=== PATIENT | female | born 1965 | race Caucasian/White ===

== ENCOUNTER 2016-11-15 00:20 | Emergency (ER) | payer OTHER ==
[~2016-11-15] VITALS: Ht 157.5 cm; Wt 153.1 kg
[~2016-11-15 00:20] MED LIST: A & D15 GM TP; ADVIL,NUPRIN,M200 MG PO; ASPIRIN325 MG PO; CLINDAMYCIN HC300 MG PO; ENDOCET 5-3251 EACH PO; KETOCONAZOLE60 GM TP; LASIX PO; TYLENOL REGULA325 MG PO; VISINE A.C300 DROP/1 BOTH EYES
[2016-11-15 01:45] LABS: HEMATOCRIT 49.5 % (36.0-46.0); MCHC 31.7 G/DL (30.0-36.0); MCV 100.8 FL (83-99); MEAN PLAT.VOLUME 11.6 uM^3 (9.5-12.4); PLATELET COUNT 122 K/uL (156-360); RBC DIS.WIDTH-CV 14.5 % (11.8-14.6); RBC DIS.WIDTH-SD 53.6 % (39-53); RED BLOOD COUNT 4.91 M/uL (3.80-5.20); WHITE BLOOD COUNT 8.3 K/uL (4.1-10.2)
[2016-11-15 01:55] LABS: CHLORIDE 94 mEq/L (99-109); POTASSIUM 4.1 mEq/L (3.7-5.4); SODIUM 139 mEq/L (136-147)
[2016-11-15 01:57] LABS: GLUCOSE 115 mg/dL (70-99)
[2016-11-15 01:58] LABS: ANION GAP 9 MEQ/L (2-14)
[2016-11-15 02:01] LABS: GFR ESTIMATE (CALCULATED) > 59 mL/min/; UREA NITROGEN (BUN) 13 mg/dL (9-23)
[2016-11-15 02:27] LABS: INFLUENZA A VIRAL ANTIGEN NEGATIVE; INFLUENZA B VIRAL ANTIGEN NEGATIVE
[2016-11-15] MEDS ORDERED: ZITHROMAX Z-PA250 MG PO (02:59)
[2016-11-15] MEDS ORDERED: TOBREX5 ML BOTH EYES (02:59)
[2016-11-15 03:03] VITALS: BP 134/80
== END 2016-11-15 03:11 | disposition home or self-care (01) ==
LOC: EME 00:20
PROVIDERS: Physician Assistant
DX: J32.9 Chronic sinusitis, unspecified (principal); H10.9 Unspecified conjunctivitis; R05 Cough; J44.9 Chronic obstructive pulmonary disease, unspecified; R73.03 Prediabetes; F17.200 Nicotine dependence, unspecified, uncomplicated
CPT/HCPCS: 71020; 80048; 85027; 87502; 87651 90; 94640; 99281; 99284

== ENCOUNTER 2016-12-19 16:46 | Inpatient (IN) | payer OTHER ==
[~2016-12-19] VITALS: Ht 157.5 cm; Wt 153.0 kg
[~2016-12-19 16:46] MED LIST changes: +TOBREX5 ML BOTH EYES; +ZITHROMAX Z-PA250 MG PO
[2016-12-19 17:35] LABS: HEMATOCRIT 46.8 % (36.0-46.0); MCHC 29.3 G/DL (30.0-36.0); MCV 109.3 FL (83-99); MEAN PLAT.VOLUME 11.8 uM^3 (9.5-12.4); PLATELET COUNT 95 K/uL (156-360); RBC DIS.WIDTH-CV 15.6 % (11.8-14.6); RBC DIS.WIDTH-SD 61.4 % (39-53); RED BLOOD COUNT 4.28 M/uL (3.80-5.20); WHITE BLOOD COUNT 5.6 K/uL (4.1-10.2)
[2016-12-19 17:55] LABS: TROP-I INTERPRETATION NEGATIVE; TROPONIN-I < 0.01 ng/mL (0.0-0.30)
[2016-12-19 18:13] LABS: CHLORIDE 95 mEq/L (99-109)
[2016-12-19 18:14] LABS: POTASSIUM 4.2 mEq/L (3.7-5.4); SODIUM 144 mEq/L (136-147)
[2016-12-19 18:15] LABS: GLUCOSE 117 mg/dL (70-99)
[2016-12-19 18:17] LABS: ANION GAP 3 MEQ/L (2-14); CARBON DIOXIDE (BICARBONATE) > 40.0 mEq/L (20-31)
[2016-12-19 18:19] LABS: GFR ESTIMATE (CALCULATED) > 59 mL/min/
[2016-12-19 18:20] LABS: UREA NITROGEN (BUN) 20 mg/dL (9-23)
[2016-12-20] VITALS (17 sets, daily range): BP systolic 101–160; BP diastolic 41–112
[2016-12-20 02:45] LABS: ADD MIUA? YES; BILIRUBIN NEGATIVE; BLOOD SMALL; COLOR AMBER ((YELLOW)); GLUCOSE (STRIP) NEGATIVE; KETONES NEGATIVE; LEUKOCYTES NEGATIVE; NITRITE POSITIVE; PROTEIN (STRIP) 100
[2016-12-20 02:49] LABS: BACTERIA 1+ /HPF; EPITHELIAL CELLS 1+ /HPF; HYALINE CASTS 0-5 /LPF; MUCUS 1+ /LPF; RED BLOOD CELLS 0-5 /HPF (0-5); UCUL ADDED? NO
[2016-12-20 07:21] LABS: ANION GAP ND MEQ/L (2-14); CHLORIDE 93 MEQ/L (99-109); GFR ESTIMATE (CALCULATED) > 59 mL/min/; GLUCOSE 136 mg/dL (70-99); SAMPLE HEMOLYSIS CHECK 1; SAMPLE ICTERIC CHECK 0; SAMPLE LIPEMIA CHECK 0; SODIUM 141 MEQ/L (136-147); UREA NITROGEN (BUN) 20 mg/dL (9-23)
[2016-12-20 07:22] LABS: CARBON DIOXIDE (BICARBONATE) > 40.0 MEQ/L (20-31); POTASSIUM 5.3 MEQ/L (3.7-5.4)
[2016-12-20 08:14] LABS: HEMATOCRIT 49.2 % (36.0-46.0); MCH 31.9 PG (29.0-34.0); MCHC 28.7 G/DL (30.0-36.0); MCV 111.3 FL (83-99); MEAN PLAT.VOLUME 12.6 uM^3 (9.5-12.4); PLATELET COUNT 95 K/uL (156-360); RBC DIS.WIDTH-CV 15.9 % (11.8-14.6); RBC DIS.WIDTH-SD 64.8 % (39-53); RED BLOOD COUNT 4.42 M/uL (3.80-5.20); WHITE BLOOD COUNT 6.5 K/uL (4.1-10.2)
[2016-12-20 09:10] LABS: BASE EXCESS 18.4 mEq/L (-3 to +3); BICARBONATE 52.2 mEq/L (22-26); CARBOXY HGB 3.3 % (0-5); PCO2 119 mm Hg (35-45); PO2 47 mm Hg (80-100); pH 7.25 (7.35-7.45)
[2016-12-20 09:11] LABS: COMMENTS - BLOOD GASES A+C+; DEVICE NCHH; FI02 100 %; O2 FLOW 70 L/MIN; SITE RR
[2016-12-20 09:31] LABS: POINT-OF-CARE METER ID UU14100415
[2016-12-20 13:01] LABS: BASE EXCESS 21.4 mEq/L (-3 to +3); BICARBONATE 54.1 mEq/L (22-26); CARBOXY HGB 3.3 % (0-5); METHEMOGLOBIN 1.4 % (0-1.5); PCO2 110 mm Hg (35-45); PO2 67 mm Hg (80-100); SITE LR
[2016-12-20 13:02] LABS: COMMENTS - BLOOD GASES A+C+; DEVICE NIV; FI02 70 %; MODE SPONT; PEEP 10 CM/H20; PRES. SUPPORT 15 CM/H2O; TOTAL RESP RATE 12 resp/min
[2016-12-20 13:28] LABS: METH RESISTANT S AUREUS PCR NEGATIVE (NEGATIVE)
[2016-12-20 13:30] LABS: PROBE CHECK PASS; SPECIMEN PROCESSING CONTROL PASS
[2016-12-20 13:56] LABS: TROP-I INTERPRETATION NEGATIVE; TROPONIN-I < 0.01 ng/mL (0.0-0.30)
[2016-12-20 14:59] LABS: BASE EXCESS 22.4 mEq/L (-3 to +3); BICARBONATE 51.8 mEq/L (22-26); CARBOXY HGB 2.8 % (0-5); METHEMOGLOBIN 1.6 % (0-1.5); PCO2 78 mm Hg (35-45); pH 7.43 (7.35-7.45)
[2016-12-20 15:00] LABS: DEVICE VENT; FI02 100 %; MECHANICAL RATE 20 resp/min; MODE AC; PEEP 12.5 CM/H20; PO2 51 mm Hg (80-100); SITE RR; TIDAL VOLUME 500 ML; TOTAL RESP RATE 20 resp/min
[2016-12-21] VITALS (20 sets, daily range): BP systolic 93–130; BP diastolic 42–64
[2016-12-21 10:13] LABS: BASE EXCESS 17.6 mEq/L (-3 to +3); BICARBONATE 39.5 mEq/L (22-26); CARBOXY HGB 1.7 % (0-5); DEVICE 840; FI02 70 %; MECHANICAL RATE 20 resp/min; METHEMOGLOBIN 1.8 % (0-1.5); MODE BILEVEL; PCO2 35 mm Hg (35-45); PO2 84 mm Hg (80-100); SITE RR; TOTAL RESP RATE 21 resp/min; pH 7.66 (7.35-7.45)
[2016-12-21 10:22] LABS: EOSINOPHIL (%) 0.4 % (0-5); HEMATOCRIT 42.4 % (36.0-46.0); IMMATURE GRANULOCYTE (%) 0.6 % (0.0-0.7); IMMATURE GRANULOCYTE COUNT 0.3 K/uL; LYMPHOCYTE COUNT 0.4 K/uL (1.0-2.8); MCH 31.9 PG (29.0-34.0); MCHC 30.7 G/DL (30.0-36.0); MCV 104.2 FL (83-99); MEAN PLAT.VOLUME 12.8 uM^3 (9.5-12.4); MONOCYTE (%) 7.4 % (3-12); MONOCYTE COUNT 0.4 K/uL (0-0.8); NEUTROPHIL (%) 84.8 % (45-76); NEUTROPHIL COUNT 4.5 K/uL (1.8-6.4); PLATELET COUNT 98 K/uL (156-360); RBC DIS.WIDTH-CV 15.2 % (11.8-14.6); RBC DIS.WIDTH-SD 57.4 % (39-53); RED BLOOD COUNT 4.07 M/uL (3.80-5.20); WHITE BLOOD COUNT 5.3 K/uL (4.1-10.2)
[2016-12-21 10:57] LABS: BASE EXCESS 15.8 mEq/L (-3 to +3); BICARBONATE 40.2 mEq/L (22-26); CARBOXY HGB 1.7 % (0-5); METHEMOGLOBIN 1.7 % (0-1.5); PCO2 46 mm Hg (35-45); PO2 57 mm Hg (80-100); pH 7.55 (7.35-7.45)
[2016-12-21 10:58] LABS: COMMENTS - BLOOD GASES A+C+; DEVICE 840; FI02 100 %; INSPIRATION TIME 1.25 seconds; MECHANICAL RATE 12 resp/min; MODE AC; PEEP 5 CM/H20; PRESSURE CONTROL VENTILATION 15 CM H20; SITE RR; TOTAL RESP RATE 17 resp/min
[2016-12-21 11:09] LABS: ANION GAP 13 MEQ/L (2-14); CHLORIDE 92 MEQ/L (99-109); GFR ESTIMATE (CALCULATED) > 59 mL/min/; GLUCOSE 151 mg/dL (70-99); MAGNESIUM 1.7 mg/dl (1.3-2.7); SAMPLE HEMOLYSIS CHECK 0; SAMPLE ICTERIC CHECK 0; SAMPLE LIPEMIA CHECK 0; SODIUM 138 MEQ/L (136-147); UREA NITROGEN (BUN) 30 mg/dL (9-23)
[2016-12-21 11:11] LABS: POTASSIUM 3.9 MEQ/L (3.7-5.4)
[2016-12-21 13:13] LABS: POINT-OF-CARE METER ID UU13113731
[2016-12-21 14:11] LABS: BASE EXCESS 14.2 mEq/L (-3 to +3); BICARBONATE 42.6 mEq/L (22-26); CARBOXY HGB 2.1 % (0-5); METHEMOGLOBIN 1.6 % (0-1.5)
[2016-12-21 14:12] LABS: COMMENTS - BLOOD GASES C+; DEVICE 840; FI02 100 %; INSPIRATION TIME 1.25 seconds; MECHANICAL RATE 12 resp/min; MODE AC/PC; PCO2 72 mm Hg (35-45); PEEP 10 CM/H20; PO2 93 mm Hg (80-100); PRESSURE CONTROL VENTILATION 15 CM H20; SITE ALINE; TOTAL RESP RATE 12 resp/min; pH 7.38 (7.35-7.45)
[2016-12-21 18:03] LABS: POINT-OF-CARE METER ID UU14174217
[2016-12-22] VITALS (22 sets, daily range): BP systolic 101–135; BP diastolic 40–65
[2016-12-22 00:48] LABS: POINT-OF-CARE METER ID UU14174217
[2016-12-22 05:30] LABS: POINT-OF-CARE METER ID UU14174217
[2016-12-22 06:16] LABS: EOSINOPHIL (%) 0 % (0-5); IMMATURE GRANULOCYTE (%) 0.4 % (0.0-0.7); IMMATURE GRANULOCYTE COUNT 0.1 K/uL; LYMPHOCYTE COUNT 0.4 K/uL (1.0-2.8); MONOCYTE (%) 2.1 % (3-12); MONOCYTE COUNT 0.3 K/uL (0-0.8); NEUTROPHIL (%) 94.1 % (45-76); NEUTROPHIL COUNT 10.9 K/uL (1.8-6.4)
[2016-12-22 06:38] LABS: ANION GAP 7 MEQ/L (2-14); CHLORIDE 93 MEQ/L (99-109); GFR ESTIMATE (CALCULATED) > 59 mL/min/; GLUCOSE 145 mg/dL (70-99); MAGNESIUM 1.9 mg/dl (1.3-2.7); POTASSIUM 3.9 MEQ/L (3.7-5.4); SAMPLE HEMOLYSIS CHECK 0; SAMPLE ICTERIC CHECK 0; SAMPLE LIPEMIA CHECK 0; SODIUM 136 MEQ/L (136-147); UREA NITROGEN (BUN) 37 mg/dL (9-23)
[2016-12-22 06:47] LABS: HEMATOCRIT 40.4 % (36.0-46.0); MCH 32.4 PG (29.0-34.0); MCHC 31.4 G/DL (30.0-36.0); MCV 103.1 FL (83-99); MEAN PLAT.VOLUME 13.6 uM^3 (9.5-12.4); PLATELET COUNT 113 K/uL (156-360); RBC DIS.WIDTH-CV 15.9 % (11.8-14.6); RBC DIS.WIDTH-SD 59.3 % (39-53); RED BLOOD COUNT 3.92 M/uL (3.80-5.20)
[2016-12-22 07:13] LABS: PLAT.SUFFICIENCY DECREASED; USER ID STC
[2016-12-22 07:19] LABS: WHITE BLOOD COUNT 11.6 K/uL (4.1-10.2)
[2016-12-22 12:49] LABS: POINT-OF-CARE METER ID UU14174217
[2016-12-22 15:30] LABS: BICARBONATE 36.1 mEq/L (22-26); CARBOXY HGB 2.7 % (0-5); COMMENTS - BLOOD GASES C+; DEVICE 840; FI02 100 %; MECHANICAL RATE 12 resp/min; METHEMOGLOBIN 1.2 % (0-1.5); MODE AC; PCO2 75 mm Hg (35-45); PO2 85 mm Hg (80-100); SITE ALINE; TOTAL RESP RATE 14 resp/min
[2016-12-22 15:31] LABS: INSPIRATION TIME 1.25 seconds; PEEP 12 CM/H20; PRESSURE CONTROL VENTILATION 15 CM H20; pH 7.29 (7.35-7.45)
[2016-12-22 18:04] LABS: BASE EXCESS 8.9 mEq/L (-3 to +3); BICARBONATE 37.4 mEq/L (22-26); CARBOXY HGB 2.1 % (0-5); COMMENTS - BLOOD GASES C+; DEVICE 840; FI02 90 %; MECHANICAL RATE 16 resp/min; METHEMOGLOBIN 1.6 % (0-1.5); MODE AC/PC; PCO2 71 mm Hg (35-45); PO2 70 mm Hg (80-100); SITE ALINE; TOTAL RESP RATE 16 resp/min; pH 7.33 (7.35-7.45)
[2016-12-22 18:05] LABS: INSPIRATION TIME 1.25 seconds; PEEP 12 CM/H20; PRESSURE CONTROL VENTILATION 15 CM H20
[2016-12-22 18:05] LABS: POINT-OF-CARE METER ID UU14174217
[2016-12-23] VITALS (14 sets, daily range): BP systolic 117–152; BP diastolic 52–71
[2016-12-23 00:22] LABS: POINT-OF-CARE METER ID UU14162636
[2016-12-23 05:59] LABS: POINT-OF-CARE METER ID UU13113731
[2016-12-23 09:25] LABS: ANION GAP 8 MEQ/L (2-14); CHLORIDE 92 MEQ/L (99-109); GFR ESTIMATE (CALCULATED) > 59 mL/min/; GLUCOSE 145 mg/dL (70-99); POTASSIUM 3.9 MEQ/L (3.7-5.4); SAMPLE HEMOLYSIS CHECK 0; SAMPLE ICTERIC CHECK 0; SAMPLE LIPEMIA CHECK 0; SODIUM 134 MEQ/L (136-147); UREA NITROGEN (BUN) 44 mg/dL (9-23)
[2016-12-23 09:26] LABS: HEMATOCRIT 41.1 % (36.0-46.0); MCH 31.1 PG (29.0-34.0); MCHC 30.9 G/DL (30.0-36.0); MCV 100.7 FL (83-99); RBC DIS.WIDTH-CV 15.7 % (11.8-14.6); RBC DIS.WIDTH-SD 57.7 % (39-53); RED BLOOD COUNT 4.08 M/uL (3.80-5.20)
[2016-12-23 09:27] LABS: MAGNESIUM 2.5 mg/dl (1.3-2.7)
[2016-12-23 09:44] LABS: WHITE BLOOD COUNT 7.8 K/uL (4.1-10.2)
[2016-12-23 10:07] LABS: MEAN PLAT.VOLUME 13.1 uM^3 (9.5-12.4); PLATELET COUNT 95 K/uL (156-360)
[2016-12-23 17:12] LABS: BASE EXCESS 9.6 mEq/L (-3 to +3); BICARBONATE 38.5 mEq/L (22-26); CARBOXY HGB 2.3 % (0-5); METHEMOGLOBIN 1.6 % (0-1.5); PCO2 73 mm Hg (35-45); PO2 76 mm Hg (80-100); pH 7.33 (7.35-7.45)
[2016-12-23 17:13] LABS: COMMENTS - BLOOD GASES C+ANA; DEVICE 840 PB; FI02 80 %; MECHANICAL RATE 16 resp/min; MODE ACPC; SITE ALINE; TOTAL RESP RATE 22 resp/min
[2016-12-23 17:14] LABS: INSPIRATION TIME 0.76 seconds
[2016-12-23 17:15] LABS: PEEP 12 CM/H20; PRESSURE CONTROL VENTILATION 15 CM H20
[2016-12-23 18:26] LABS: POINT-OF-CARE METER ID UU13113731
[2016-12-23 23:53] LABS: POINT-OF-CARE METER ID UU13113803
[2016-12-24] VITALS (24 sets, daily range): BP systolic 128–168; BP diastolic 52–107
[2016-12-24 05:09] LABS: POINT-OF-CARE METER ID UU13113731
[2016-12-24 05:54] LABS: HEMATOCRIT 41.6 % (36.0-46.0); MCH 32.6 PG (29.0-34.0); RBC DIS.WIDTH-CV 15.3 % (11.8-14.6); RBC DIS.WIDTH-SD 56.8 % (39-53); RED BLOOD COUNT 4.08 M/uL (3.80-5.20); WHITE BLOOD COUNT 7.3 K/uL (4.1-10.2)
[2016-12-24 05:59] LABS: ANION GAP 7 MEQ/L (2-14); CHLORIDE 93 MEQ/L (99-109); GFR ESTIMATE (CALCULATED) > 59 mL/min/; GLUCOSE 142 mg/dL (70-99); MAGNESIUM 2.5 mg/dl (1.3-2.7); POTASSIUM 4.3 MEQ/L (3.7-5.4); SAMPLE HEMOLYSIS CHECK 0; SAMPLE ICTERIC CHECK 0; SAMPLE LIPEMIA CHECK 0; SODIUM 136 MEQ/L (136-147); UREA NITROGEN (BUN) 53 mg/dL (9-23)
[2016-12-24 07:32] LABS: PLATELET COUNT 84 K/uL (156-360)
[2016-12-24 12:02] LABS: POINT-OF-CARE METER ID UU13113731
[2016-12-24 17:55] LABS: POINT-OF-CARE METER ID UU13113731
[2016-12-25] VITALS (22 sets, daily range): BP systolic 107–144; BP diastolic 50–78
[2016-12-25 00:07] LABS: POINT-OF-CARE METER ID UU14162636
[2016-12-25 05:10] LABS: POINT-OF-CARE METER ID UU14174217
[2016-12-25 05:55] LABS: BASE EXCESS 12.9 mEq/L (-3 to +3); BICARBONATE 40.9 mEq/L (22-26); CARBOXY HGB 2.6 % (0-5); COMMENTS - BLOOD GASES C+; DEVICE 840; FI02 50 %; MECHANICAL RATE 16 resp/min; METHEMOGLOBIN 1.4 % (0-1.5); MODE AC/PC; PCO2 66 mm Hg (35-45); PO2 60 mm Hg (80-100); SITE RR; TOTAL RESP RATE 19 resp/min
[2016-12-25 05:56] LABS: INSPIRATION TIME 0.76 seconds; PEEP 8 CM/H20; PRESSURE CONTROL VENTILATION 15 CM H20
[2016-12-25 06:20] LABS: ANION GAP 6 MEQ/L (2-14); CHLORIDE 92 MEQ/L (99-109); GFR ESTIMATE (CALCULATED) > 59 mL/min/; GLUCOSE 143 mg/dL (70-99); MAGNESIUM 2.6 mg/dl (1.3-2.7); POTASSIUM 4.4 MEQ/L (3.7-5.4); SAMPLE HEMOLYSIS CHECK 0; SAMPLE ICTERIC CHECK 0; SAMPLE LIPEMIA CHECK 0; SODIUM 136 MEQ/L (136-147); UREA NITROGEN (BUN) 57 mg/dL (9-23)
[2016-12-25 06:51] LABS: HEMATOCRIT 44.6 % (36.0-46.0); MCH 30.8 PG (29.0-34.0); MCHC 30.9 G/DL (30.0-36.0); MCV 99.6 FL (83-99); RBC DIS.WIDTH-CV 15.4 % (11.8-14.6); RBC DIS.WIDTH-SD 56.2 % (39-53); RED BLOOD COUNT 4.48 M/uL (3.80-5.20)
[2016-12-25 07:28] LABS: PLATELET COUNT 77 K/uL (156-360)
[2016-12-25 10:46] LABS: C DIFF TOXIN NEGATIVE (NEGATIVE)
[2016-12-25 10:47] LABS: PROBE CHECK PASS; SPECIMEN PROCESSING CONTROL PASS
[2016-12-25 13:25] LABS: POINT-OF-CARE METER ID UU13113803
[2016-12-25 17:07] LABS: BICARBONATE 44.2 mEq/L (22-26); CARBOXY HGB 2.6 % (0-5); METHEMOGLOBIN 1.5 % (0-1.5); pH 7.34 (7.35-7.45)
[2016-12-25 17:08] LABS: PCO2 82 mm Hg (35-45); PO2 87 mm Hg (80-100)
[2016-12-25 17:10] LABS: COMMENTS - BLOOD GASES A+C+; DEVICE 840; FI02 50 %; SITE LR
[2016-12-25 17:11] LABS: MODE SPONT (TC); PEEP 5 CM/H20; TOTAL RESP RATE 24 resp/min
[2016-12-25 17:39] LABS: POINT-OF-CARE METER ID UU13113731
[2016-12-26] VITALS (19 sets, daily range): BP systolic 106–159; BP diastolic 48–81
[2016-12-26 00:14] LABS: POINT-OF-CARE METER ID UU13113803
[2016-12-26 06:02] LABS: POINT-OF-CARE METER ID UU13113803
[2016-12-26 06:33] LABS: ANION GAP 6 MEQ/L (2-14); CHLORIDE 92 MEQ/L (99-109); GFR ESTIMATE (CALCULATED) > 59 mL/min/; GLUCOSE 118 mg/dL (70-99); POTASSIUM 4.4 MEQ/L (3.7-5.4); SAMPLE HEMOLYSIS CHECK 0; SAMPLE ICTERIC CHECK 0; SAMPLE LIPEMIA CHECK 0; SODIUM 138 MEQ/L (136-147); UREA NITROGEN (BUN) 52 mg/dL (9-23)
[2016-12-26 06:43] LABS: MCH 32.4 PG (29.0-34.0); MCV 101.1 FL (83-99); RED BLOOD COUNT 4.45 M/uL (3.80-5.20); WHITE BLOOD COUNT 6.2 K/uL (4.1-10.2)
[2016-12-26 08:29] LABS: PLATELET COUNT 77 K/uL (156-360)
[2016-12-26 12:07] LABS: MAGNESIUM 2.5 mg/dl (1.3-2.7)
[2016-12-26 12:28] LABS: POINT-OF-CARE METER ID UU13113803
[2016-12-27] VITALS (14 sets, daily range): BP systolic 101–150; BP diastolic 56–77
[2016-12-28] VITALS (9 sets, daily range): BP systolic 108–154; BP diastolic 56–86
[2016-12-28 06:34] LABS: EOSINOPHIL (%) 0 % (0-5); IMMATURE GRANULOCYTE (%) 0.2 % (0.0-0.7); LYMPHOCYTE COUNT 0.2 K/uL (1.0-2.8); MONOCYTE (%) 2.2 % (3-12); MONOCYTE COUNT 0.1 K/uL (0-0.8); NEUTROPHIL (%) 93.2 % (45-76); NEUTROPHIL COUNT 3.8 K/uL (1.8-6.4)
[2016-12-28 06:52] LABS: HEMATOCRIT 47.6 % (36.0-46.0); MCH 30.8 PG (29.0-34.0); MCHC 31.1 G/DL (30.0-36.0); RBC DIS.WIDTH-CV 14.9 % (11.8-14.6); RBC DIS.WIDTH-SD 54.4 % (39-53); RED BLOOD COUNT 4.81 M/uL (3.80-5.20); WHITE BLOOD COUNT 4.1 K/uL (4.1-10.2)
[2016-12-28 07:09] LABS: ANION GAP ND MEQ/L (2-14); CHLORIDE 91 MEQ/L (99-109); GFR ESTIMATE (CALCULATED) > 59 mL/min/; GLUCOSE 144 mg/dL (70-99); POTASSIUM 4.3 MEQ/L (3.7-5.4); SAMPLE HEMOLYSIS CHECK 0; SAMPLE ICTERIC CHECK 0; SAMPLE LIPEMIA CHECK 0; SODIUM 137 MEQ/L (136-147); UREA NITROGEN (BUN) 37 mg/dL (9-23)
[2016-12-28 07:11] LABS: CARBON DIOXIDE (BICARBONATE) > 40.0 MEQ/L (20-31)
[2016-12-28 07:20] LABS: PLAT.SUFFICIENCY DECREASED; PLATELET COUNT 80 K/uL (156-360); USER ID TLW
[2016-12-28 08:13] LABS: BASE EXCESS 13.6 mEq/L (-3 to +3); BICARBONATE 42.1 mEq/L (22-26); CARBOXY HGB 2.7 % (0-5); COMMENTS - BLOOD GASES C+; DEVICE NC; METHEMOGLOBIN 1.5 % (0-1.5); O2 FLOW 4 L/MIN; PCO2 68 mm Hg (35-45); PO2 54 mm Hg (80-100); SITE RR; TOTAL RESP RATE 18 resp/min
[2016-12-29] VITALS: BP 135/71
[2016-12-29 04:00] VITALS: BP 130/64
[2016-12-29 06:20] LABS: EOSINOPHIL (%) 0 % (0-5); IMMATURE GRANULOCYTE (%) 0.2 % (0.0-0.7); LYMPHOCYTE COUNT 0.4 K/uL (1.0-2.8); MONOCYTE (%) 5.7 % (3-12); MONOCYTE COUNT 0.2 K/uL (0-0.8); NEUTROPHIL (%) 84.1 % (45-76); NEUTROPHIL COUNT 3.5 K/uL (1.8-6.4)
[2016-12-29 06:46] LABS: ANION GAP 6 MEQ/L (2-14); CHLORIDE 96 MEQ/L (99-109); GFR ESTIMATE (CALCULATED) > 59 mL/min/; POTASSIUM 4.5 MEQ/L (3.7-5.4); SAMPLE HEMOLYSIS CHECK 0; SAMPLE ICTERIC CHECK 0; SAMPLE LIPEMIA CHECK 0; SODIUM 139 MEQ/L (136-147); UREA NITROGEN (BUN) 32 mg/dL (9-23)
[2016-12-29 06:47] LABS: GLUCOSE 104 mg/dL (70-99); HEMATOCRIT 48.3 % (36.0-46.0); MCH 30.8 PG (29.0-34.0); MCHC 30.8 G/DL (30.0-36.0); MCV 99.8 FL (83-99); RBC DIS.WIDTH-CV 14.9 % (11.8-14.6); RBC DIS.WIDTH-SD 54.6 % (39-53); RED BLOOD COUNT 4.84 M/uL (3.80-5.20); WHITE BLOOD COUNT 4.2 K/uL (4.1-10.2)
[2016-12-29 06:48] LABS: HEMATOLOGY COMMENT 1 REV; PLAT.SUFFICIENCY DECREASED; PLATELET COUNT 103 K/uL (156-360)
[2016-12-29 09:27] VITALS: BP 129/60
[2016-12-29 13:30] VITALS: BP 152/72
[2016-12-29 15:57] VITALS: BP 142/83
[2016-12-29 20:17] VITALS: BP 121/58
[2016-12-30 00:47] VITALS: BP 123/60
[2016-12-30 03:46] VITALS: BP 116/64
[2016-12-30 08:00] VITALS: BP 100/59
[2016-12-30 11:22] VITALS: BP 113/59
[2016-12-30 15:50] VITALS: BP 131/66
[2016-12-30 20:00] VITALS: BP 122/71
[2016-12-30 21:03] LABS: POINT-OF-CARE METER ID UU14149396
[2016-12-31] VITALS (7 sets, daily range): BP systolic 113–141; BP diastolic 59–77
[2016-12-31 06:24] LABS: EOSINOPHIL (%) 0.3 % (0-5); IMMATURE GRANULOCYTE (%) 0.3 % (0.0-0.7); LYMPHOCYTE COUNT 0.9 K/uL (1.0-2.8); MONOCYTE (%) 8.3 % (3-12); MONOCYTE COUNT 0.3 K/uL (0-0.8); NEUTROPHIL (%) 67.7 % (45-76); NEUTROPHIL COUNT 2.5 K/uL (1.8-6.4)
[2016-12-31 06:44] LABS: HEMATOCRIT 46.3 % (36.0-46.0); MCH 33.6 PG (29.0-34.0); MCHC 33.7 G/DL (30.0-36.0); MCV 99.8 FL (83-99); RBC DIS.WIDTH-CV 14.7 % (11.8-14.6); RBC DIS.WIDTH-SD 53.8 % (39-53); RED BLOOD COUNT 4.64 M/uL (3.80-5.20); WHITE BLOOD COUNT 3.7 K/uL (4.1-10.2)
[2016-12-31 06:46] LABS: ANION GAP 4 MEQ/L (2-14); CHLORIDE 101 MEQ/L (99-109); GFR ESTIMATE (CALCULATED) > 59 mL/min/; GLUCOSE 75 mg/dL (70-99); MAGNESIUM 2.2 mg/dl (1.3-2.7); SAMPLE HEMOLYSIS CHECK 0; SAMPLE ICTERIC CHECK 0; SAMPLE LIPEMIA CHECK 0; SODIUM 142 MEQ/L (136-147); UREA NITROGEN (BUN) 27 mg/dL (9-23)
[2016-12-31 06:47] LABS: MEAN PLAT.VOLUME 14.3 uM^3 (9.5-12.4); PLAT.SUFFICIENCY DECREASED; PLATELET COUNT 107 K/uL (156-360); USER ID SLU
[2017-01-01 03:30] VITALS: BP 115/67
[2017-01-01 08:04] VITALS: BP 129/65
[2017-01-01 12:00] VITALS: BP 121/56
[2017-01-01 15:48] VITALS: BP 133/72
[2017-01-01 20:00] VITALS: BP 118/59
[2017-01-02 00:45] VITALS: BP 117/62
[2017-01-02 04:00] VITALS: BP 123/68
[2017-01-02 08:10] VITALS: BP 108/62
[2017-01-02 08:48] LABS: ANION GAP 5 MEQ/L (2-14); CHLORIDE 100 MEQ/L (99-109); GFR ESTIMATE (CALCULATED) > 59 mL/min/; GLUCOSE 81 mg/dL (70-99); POTASSIUM 4.1 MEQ/L (3.7-5.4); SAMPLE HEMOLYSIS CHECK 0; SAMPLE ICTERIC CHECK 0; SAMPLE LIPEMIA CHECK 0; SODIUM 140 MEQ/L (136-147); UREA NITROGEN (BUN) 19 mg/dL (9-23)
[2017-01-02 09:05] LABS: HEMATOCRIT 48.3 % (36.0-46.0); MCHC 30.6 G/DL (30.0-36.0); MCV 101.3 FL (83-99); RBC DIS.WIDTH-CV 14.9 % (11.8-14.6); RED BLOOD COUNT 4.77 M/uL (3.80-5.20); WHITE BLOOD COUNT 4.5 K/uL (4.1-10.2)
[2017-01-02 09:09] LABS: PLATELET COUNT 111 K/uL (156-360)
[2017-01-02 12:12] VITALS: BP 129/71
[2017-01-02 15:34] VITALS: BP 124/58
[2017-01-02 20:30] VITALS: BP 151/73
[2017-01-03] VITALS: BP 138/72
[2017-01-03 03:52] VITALS: BP 130/75
[2017-01-03 07:14] LABS: MCH 32.3 PG (29.0-34.0); MCHC 31.8 G/DL (30.0-36.0); MCV 101.6 FL (83-99); RBC DIS.WIDTH-CV 14.6 % (11.8-14.6); RBC DIS.WIDTH-SD 54.7 % (39-53); RED BLOOD COUNT 4.43 M/uL (3.80-5.20); WHITE BLOOD COUNT 4.9 K/uL (4.1-10.2)
[2017-01-03 07:19] LABS: ANION GAP 4 MEQ/L (2-14); CHLORIDE 101 MEQ/L (99-109); GFR ESTIMATE (CALCULATED) > 59 mL/min/; GLUCOSE 77 mg/dL (70-99); POTASSIUM 4.4 MEQ/L (3.7-5.4); SAMPLE HEMOLYSIS CHECK 1; SAMPLE ICTERIC CHECK 0; SAMPLE LIPEMIA CHECK 0; SODIUM 141 MEQ/L (136-147); UREA NITROGEN (BUN) 19 mg/dL (9-23)
[2017-01-03 07:27] LABS: MEAN PLAT.VOLUME 13.9 uM^3 (9.5-12.4); PLATELET COUNT 100 K/uL (156-360)
[2017-01-03 08:35] VITALS: BP 121/61
[2017-01-03 12:03] VITALS: BP 122/61
[2017-01-03] MEDS ORDERED: LEVOFLOXACIN750 MG PO (13:20)
[2017-01-03] MEDS ORDERED: NICOTINE PATCH1 EAC2 TD (13:20)
[2017-01-03] MEDS ORDERED: PREDNISONE20 MG PO (13:21)
[2017-01-03] MEDS ORDERED: FOLIC ACID1 MG PO (13:21)
[2017-01-03] MEDS ORDERED: MUCINEX600 MG PO (13:21)
[2017-01-03] MEDS ORDERED: ADVAIR HFA120 INHALA IH (13:21)
[2017-01-03] MEDS ORDERED: PANTOPRAZOLE SO40 MG PO (13:21)
[2017-01-03] MEDS ORDERED: THERAGRAN1 TABLET PO (13:36)
[2017-01-03] MEDS ORDERED: VENTOLIN HFA18 GM IH (13:37)
[2017-01-03] MEDS ORDERED: Thiamine,Vitamin B1 PO (13:41)
[2017-01-03 16:00] VITALS: BP 129/71
[2017-01-03 20:00] VITALS: BP 115/64
[2017-01-04 00:01] VITALS: BP 114/65
[2017-01-04 04:00] VITALS: BP 133/82
[2017-01-04 08:37] VITALS: BP 101/60
[2017-01-04 11:54] VITALS: BP 119/73
[2017-01-04 18:02] VITALS: BP 138/83
== END 2017-01-04 20:39 | disposition home health service (06) | DRG 207 ==
LOC: EME 16:46 → 4WEST 21:41 → EDOF 21:41 → 4WEST 12-20 11:44 → 4SOUTH 12-29 15:52
PROVIDERS: Hospitalist; Internal Medicine; Internal Medicine Critical Care Medicine; Internal Medicine Nephrology; Nurse Practitioner Family; Surgery
DX: J44.0 Chronic obstructive pulmonary disease with (acute) lower respiratory infection (principal); J18.9 Pneumonia, unspecified organism; J96.21 Acute and chronic respiratory failure with hypoxia; J96.22 Acute and chronic respiratory failure with hypercapnia; J44.1 Chronic obstructive pulmonary disease with (acute) exacerbation; J20.9 Acute bronchitis, unspecified; N39.0 Urinary tract infection, site not specified; I89.0 Lymphedema, not elsewhere classified; J98.11 Atelectasis; E87.3 Alkalosis; L03.90 Cellulitis, unspecified; E66.01 Morbid (severe) obesity due to excess calories; Z68.44 Body mass index [BMI] 60.0-69.9, adult; E87.70 Fluid overload, unspecified; G47.33 Obstructive sleep apnea (adult) (pediatric); Z91.19 Patient's noncompliance with other medical treatment and regimen; Z99.81 Dependence on supplemental oxygen; I50.9 Heart failure, unspecified; D69.6 Thrombocytopenia, unspecified; E11.9 Type 2 diabetes mellitus without complications; F10.20 Alcohol dependence, uncomplicated; F17.210 Nicotine dependence, cigarettes, uncomplicated
CPT/HCPCS: 36600; 71010; 71020; 71275; 74000; 80048; 80048 91; 81003; 82803; 82948; 83735; 84100; 84484; 85025; 85027; 87070; 87205; 87493; 87641; 93005; 94002; 94003; 94010; 94640; 94640 76; 94660; 94667; 94668; 94760; 94799; 97530 GO; 97530 GP; 99202; 99281; 99285; C1751; C9113; J0456; J0696; J1120; J1644; J1650; J1815; J1940; J1956; J2704; J2920; J2930; J3010; J3475; J7050; J7120; J7512; J7644

== ENCOUNTER 2018-02-23 21:05 | Inpatient (IN) | payer OTHER ==
[~2018-02-23] VITALS: Ht 157.5 cm; Wt 136.0 kg
[~2018-02-23 21:05] MED LIST changes: +ADVAIR HFA120 INHALA IH; +FOLIC ACID1 MG PO; +LEVOFLOXACIN750 MG PO; +MUCINEX600 MG PO; +NICOTINE PATCH1 EAC2 TD; +PANTOPRAZOLE SO40 MG PO; +PREDNISONE20 MG PO; +THERAGRAN1 TABLET PO; +Thiamine,Vitamin B1 PO; +VENTOLIN HFA18 GM IH
[2018-02-23 21:36] LABS: HEMATOCRIT 46.9 % (36.0-46.0); HEMOGLOBIN 14.1 G/DL (11.9-15.5); MCH 32.3 PG (29.0-34.0); MCHC 30.1 G/DL (30.0-36.0); MCV 107.6 FL (83-99); NRBC (%) 0.6 /100 WBC (0-0); RBC DIS.WIDTH-CV 15.1 % (11.8-14.6); RBC DIS.WIDTH-SD 59.8 % (39-53); RED BLOOD COUNT 4.36 M/uL (3.80-5.20); WHITE BLOOD COUNT 7.7 K/uL (4.1-10.2)
[2018-02-23 21:48] LABS: CHLORIDE 93 mEq/L (99-109); POTASSIUM 4.4 mEq/L (3.7-5.4); SODIUM 141 mEq/L (136-147)
[2018-02-23 21:49] LABS: GLUCOSE 105 mg/dL (70-99)
[2018-02-23 21:53] LABS: CREATININE 0.7 mg/dL (0.6-1.3); GFR ESTIMATE (CALCULATED) > 59 mL/min/
[2018-02-23 21:54] LABS: UREA NITROGEN (BUN) 18 mg/dL (9-23)
[2018-02-23 21:59] LABS: TROP-I INTERPRETATION NEGATIVE; TROPONIN-I 0.02 ng/mL (0.0-0.30)
[2018-02-23 22:13] LABS: PLAT.SUFFICIENCY DECREASED
[2018-02-23 22:14] LABS: PLATELET COUNT 128 K/uL (156-360)
[2018-02-23 23:16] LABS: BASE EXCESS 14.9 mEq/L (-3 to +3); BICARBONATE 48.5 mEq/L (22-26); CARBOXY HGB 8.9 % (0-5); METHEMOGLOBIN 0.7 % (0-1.5); PO2 48 mm Hg (80-100)
[2018-02-23 23:17] LABS: COMMENTS - BLOOD GASES C+; DEVICE MASKVENT; FI02 85 %; MODE NSPONT; PCO2 124 mm Hg (35-45); PEEP 5 CM/H20; PRES. SUPPORT 12 CM/H2O; SITE RR; TOTAL RESP RATE 10 resp/min
[2018-02-24] VITALS (14 sets, daily range): BP systolic 111–159; BP diastolic 52–93
[2018-02-24 03:16] LABS: TRIGLYCERIDES 65 MG/DL (Normal: <150)
[2018-02-24 03:37] LABS: BASE EXCESS 14.3 mEq/L (-3 to +3); BICARBONATE 43.2 mEq/L (22-26); CARBOXY HGB 6.2 % (0-5); COMMENTS - BLOOD GASES C+A+; DEVICE VENT; FI02 100 %; MECHANICAL RATE 18 resp/min; METHEMOGLOBIN 1.4 % (0-1.5); MODE AC; PCO2 73 mm Hg (35-45); PO2 49 mm Hg (80-100); SITE LR; TIDAL VOLUME 500 ML; TOTAL RESP RATE 18 resp/min; pH 7.38 (7.35-7.45)
[2018-02-24 03:38] LABS: PEEP 10 CM/H20
[2018-02-24 05:46] LABS: HEMATOCRIT 42.1 % (36.0-46.0); HEMOGLOBIN 12.6 G/DL (11.9-15.5); MCH 31.3 PG (29.0-34.0); MCHC 29.9 G/DL (30.0-36.0); MCV 104.5 FL (83-99); NRBC (%) 0.5 /100 WBC (0-0); PLATELET COUNT 110 K/uL (156-360); RBC DIS.WIDTH-CV 14.9 % (11.8-14.6); RBC DIS.WIDTH-SD 57.7 % (39-53); RED BLOOD COUNT 4.03 M/uL (3.80-5.20); WHITE BLOOD COUNT 6.4 K/uL (4.1-10.2)
[2018-02-24 05:49] LABS: INTER. NORMALIZED RATIO 1.1
[2018-02-24 05:52] LABS: PTT 27.7 SEC (25-37)
[2018-02-24 06:08] LABS: CHLORIDE 93 MEQ/L (99-109); CREATININE 0.5 MG/DL (0.6-1.3); GFR ESTIMATE (CALCULATED) > 59 mL/min/; MAGNESIUM 2.1 mg/dl (1.3-2.7); PHOSPHORUS 2.8 mg/dL (2.5-4.9); POTASSIUM 4.6 MEQ/L (3.7-5.4); SODIUM 138 MEQ/L (136-147); UREA NITROGEN (BUN) 17 mg/dL (9-23)
[2018-02-24 06:12] LABS: GLUCOSE 165 mg/dL (70-99)
[2018-02-24 07:32] LABS: TROP-I INTERPRETATION NEGATIVE; TROPONIN-I < 0.01 ng/mL (0.0-0.30)
[2018-02-24 09:22] LABS: HEMOGLOBIN A1c (GLYCOHEMOGLOB) 5.2 % (Below 5.7)
[2018-02-25] VITALS (16 sets, daily range): BP systolic 98–136; BP diastolic 45–66
[2018-02-25 06:39] LABS: HEMATOCRIT 39.7 % (36.0-46.0); HEMOGLOBIN 12.6 G/DL (11.9-15.5); MCH 30.6 PG (29.0-34.0); MCHC 31.7 G/DL (30.0-36.0); RBC DIS.WIDTH-CV 15.6 % (11.8-14.6); RBC DIS.WIDTH-SD 54.4 % (39-53); RED BLOOD COUNT 4.12 M/uL (3.80-5.20); WHITE BLOOD COUNT 6.7 K/uL (4.1-10.2)
[2018-02-25 06:41] LABS: MCV 96.4 FL (83-99)
[2018-02-25 07:22] LABS: PLAT.SUFFICIENCY DECREASED; PLATELET CLUMPS PRESENT - PLATELET COUNTS APPEARS DECREASED
[2018-02-25 07:29] LABS: PLATELET COUNT UNABLE TO REPORT K/uL (156-360)
[2018-02-25 08:18] LABS: CHLORIDE 99 MEQ/L (99-109); CREATININE 0.6 MG/DL (0.6-1.3); GFR ESTIMATE (CALCULATED) > 59 mL/min/; GLUCOSE 165 mg/dL (70-99); SODIUM 139 MEQ/L (136-147); UREA NITROGEN (BUN) 22 mg/dL (9-23)
[2018-02-25 08:25] LABS: POTASSIUM 3.6 MEQ/L (3.7-5.4)
[2018-02-25 08:41] LABS: BASE EXCESS 9.7 mEq/L (-3 to +3); BICARBONATE 31.1 mEq/L (22-26); METHEMOGLOBIN 1.4 % (0-1.5); PCO2 31 mm Hg (35-45); PO2 51 mm Hg (80-100); SITE RIGHTALINE
[2018-02-25 08:42] LABS: DEVICE 980; FI02 60 %; MECHANICAL RATE 24 resp/min; PEEP 12 CM/H20; TIDAL VOLUME 500 ML; TOTAL RESP RATE 24 resp/min; pH 7.61 (7.35-7.45)
[2018-02-25 21:48] LABS: BASE EXCESS 5.9 mEq/L (-3 to +3); BICARBONATE 31.2 mEq/L (22-26); CARBOXY HGB 1.7 % (0-5); METHEMOGLOBIN 0.8 % (0-1.5); PCO2 47 mm Hg (35-45); PO2 60 mm Hg (80-100); SITE ALINE; pH 7.43 (7.35-7.45)
[2018-02-25 21:49] LABS: DEVICE VENT; FI02 80 %; MECHANICAL RATE 14 resp/min; MODE ACVC; PEEP 12 CM/H20; TIDAL VOLUME 500 ML; TOTAL RESP RATE 14 resp/min
[2018-02-26] VITALS (16 sets, daily range): BP systolic 97–120; BP diastolic 46–75
[2018-02-26 05:14] LABS: HEMATOCRIT 37.7 % (36.0-46.0); HEMOGLOBIN 11.7 G/DL (11.9-15.5); MCH 30.7 PG (29.0-34.0); RBC DIS.WIDTH-CV 16.3 % (11.8-14.6); RBC DIS.WIDTH-SD 58.4 % (39-53); RED BLOOD COUNT 3.81 M/uL (3.80-5.20); WHITE BLOOD COUNT 8.5 K/uL (4.1-10.2)
[2018-02-26 05:55] LABS: PLAT.SUFFICIENCY ADEQUATE
[2018-02-26 06:00] LABS: PLATELET COUNT 158 K/uL (156-360)
[2018-02-27] VITALS (12 sets, daily range): BP systolic 93–135; BP diastolic 42–87
[2018-02-27 23:41] LABS: BASE EXCESS 5.8 mEq/L (-3 to +3); BICARBONATE 28.2 mEq/L (22-26); COMMENTS - BLOOD GASES C+; DEVICE VENT; FI02 100 %; MECHANICAL RATE 20 resp/min; METHEMOGLOBIN 1.6 % (0-1.5); MODE ACPC; PCO2 33 mm Hg (35-45); PO2 54 mm Hg (80-100); PRESSURE CONTROL VENTILATION 22 CM H20; SITE A-LINE; TOTAL RESP RATE 20 resp/min; pH 7.54 (7.35-7.45)
[2018-02-27 23:42] LABS: INSPIRATION TIME 1.5 seconds; PEEP 12 CM/H20
[2018-02-28] VITALS (17 sets, daily range): BP systolic 98–135; BP diastolic 42–60
[2018-02-28 01:52] LABS: SODIUM 140 mEq/L (136-147)
[2018-02-28 01:53] LABS: CHLORIDE 103 mEq/L (99-109); GLUCOSE 173 mg/dL (70-99)
[2018-02-28 01:57] LABS: CREATININE 0.8 mg/dL (0.6-1.3); GFR ESTIMATE (CALCULATED) > 59 mL/min/
[2018-02-28 01:58] LABS: UREA NITROGEN (BUN) 33 mg/dL (9-23)
[2018-02-28 02:01] LABS: BASE EXCESS 6.2 mEq/L (-3 to +3); BICARBONATE 29.5 mEq/L (22-26); COMMENTS - BLOOD GASES C+; DEVICE VENT; FI02 100 %; METHEMOGLOBIN 1.5 % (0-1.5); PCO2 37 mm Hg (35-45); PO2 65 mm Hg (80-100); SITE A-LINE; pH 7.51 (7.35-7.45)
[2018-02-28 02:02] LABS: INSPIRATION TIME 1.8 seconds; MECHANICAL RATE 16 resp/min; MODE AC; PEEP 12 CM/H20; PRESSURE CONTROL VENTILATION 18 CM H20; TOTAL RESP RATE 16 resp/min
[2018-02-28 04:00] LABS: BASE EXCESS 5.2 mEq/L (-3 to +3); BICARBONATE 31.5 mEq/L (22-26); CARBOXY HGB 1.9 % (0-5); COMMENTS - BLOOD GASES C+; DEVICE VENT; FI02 100 %; INSPIRATION TIME 2.41 seconds; MECHANICAL RATE 12 resp/min; METHEMOGLOBIN 1.6 % (0-1.5); MODE ACPC; PCO2 52 mm Hg (35-45); PEEP 12 CM/H20; PO2 59 mm Hg (80-100); PRESSURE CONTROL VENTILATION 16 CM H20; SITE A-LINE; TOTAL RESP RATE 12 resp/min; pH 7.39 (7.35-7.45)
[2018-02-28 05:30] LABS: HEMATOCRIT 39.8 % (36.0-46.0); HEMOGLOBIN 12.6 G/DL (11.9-15.5); MCH 31.8 PG (29.0-34.0); MCHC 31.7 G/DL (30.0-36.0); MCV 100.5 FL (83-99); PLATELET COUNT 137 K/uL (156-360); RBC DIS.WIDTH-CV 15.8 % (11.8-14.6); RBC DIS.WIDTH-SD 58.6 % (39-53); RED BLOOD COUNT 3.96 M/uL (3.80-5.20); WHITE BLOOD COUNT 8.1 K/uL (4.1-10.2)
[2018-02-28 05:59] LABS: CHLORIDE 102 MEQ/L (99-109); CREATININE 0.7 MG/DL (0.6-1.3); GFR ESTIMATE (CALCULATED) > 59 mL/min/; GLUCOSE 166 mg/dL (70-99); POTASSIUM 3.9 MEQ/L (3.7-5.4); SODIUM 139 MEQ/L (136-147); UREA NITROGEN (BUN) 32 mg/dL (9-23)
[2018-03-01] VITALS: BP 114/53
[2018-03-01 02:00] VITALS: BP 114/48
[2018-03-01 03:00] VITALS: BP 112/48
[2018-03-01 04:00] VITALS: BP 112/52
[2018-03-01 06:00] VITALS: BP 115/60
[2018-03-02] VITALS (8 sets, daily range): BP systolic 113–126; BP diastolic 53–57
[2018-03-02 05:14] LABS: BASOPHIL (%) 0 % (0-1); EOSINOPHIL (%) 0 % (0-5); HEMATOCRIT 40.8 % (36.0-46.0); HEMOGLOBIN 13.3 G/DL (11.9-15.5); IMMATURE GRANULOCYTE (%) 0.3 % (0.0-0.7); LYMPHOCYTE (%) 1.6 % (15-42); LYMPHOCYTE COUNT 0.2 K/uL (1.0-2.8); MCH 31.8 PG (29.0-34.0); MCHC 32.6 G/DL (30.0-36.0); MCV 97.6 FL (83-99); MONOCYTE (%) 4.6 % (3-12); MONOCYTE COUNT 0.4 K/uL (0-0.8); NEUTROPHIL (%) 93.5 % (45-76); NEUTROPHIL COUNT 8.8 K/uL (1.8-6.4); PLATELET COUNT 96 K/uL (156-360); RBC DIS.WIDTH-CV 15.5 % (11.8-14.6); RBC DIS.WIDTH-SD 55.5 % (39-53); RED BLOOD COUNT 4.18 M/uL (3.80-5.20); WHITE BLOOD COUNT 9.4 K/uL (4.1-10.2)
[2018-03-02 05:25] LABS: CHLORIDE 98 mEq/L (99-109); POTASSIUM 4.4 mEq/L (3.7-5.4); SODIUM 138 mEq/L (136-147)
[2018-03-02 05:26] LABS: GLUCOSE 176 mg/dL (70-99)
[2018-03-02 05:30] LABS: CREATININE 0.8 mg/dL (0.6-1.3); GFR ESTIMATE (CALCULATED) > 59 mL/min/
[2018-03-02 05:31] LABS: UREA NITROGEN (BUN) 46 mg/dL (9-23)
[2018-03-02 05:39] LABS: BASE EXCESS 3.8 mEq/L (-3 to +3); BICARBONATE 30.9 mEq/L (22-26); CARBOXY HGB 1.9 % (0-5); METHEMOGLOBIN 1.6 % (0-1.5); PCO2 56 mm Hg (35-45); PO2 55 mm Hg (80-100); pH 7.35 (7.35-7.45)
[2018-03-02 05:40] LABS: COMMENTS - BLOOD GASES ALINE; DEVICE VENT; FI02 90 %; MECHANICAL RATE 15 resp/min; MODE BILEVEL; PRESSURE CONTROL VENTILATION 25 CM H20; SITE RR; TOTAL RESP RATE 17 resp/min
[2018-03-02 05:41] LABS: INSPIRATION TIME 3.3 seconds; PEEP 0 CM/H20
[2018-03-03] VITALS (9 sets, daily range): BP systolic 111–147; BP diastolic 52–90
[2018-03-03 09:45] LABS: BASE EXCESS 8.6 mEq/L (-3 to +3); BICARBONATE 35.7 mEq/L (22-26); CARBOXY HGB 1.8 % (0-5); METHEMOGLOBIN 1.5 % (0-1.5); PCO2 59 mm Hg (35-45); PO2 63 mm Hg (80-100); SITE LR; pH 7.39 (7.35-7.45)
[2018-03-03 09:46] LABS: COMMENTS - BLOOD GASES C+; DEVICE VENT; FI02 100 %; MECHANICAL RATE 15 resp/min; MODE BILEVEL PS; PEEP 0 CM/H20; PRES. SUPPORT 25 CM/H2O; TOTAL RESP RATE 18 resp/min
[2018-03-03 09:51] LABS: BASOPHIL (%) 0 % (0-1); EOSINOPHIL (%) 0.1 % (0-5); HEMATOCRIT 43.3 % (36.0-46.0); HEMOGLOBIN 13.9 G/DL (11.9-15.5); IMMATURE GRANULOCYTE (%) 0.3 % (0.0-0.7); LYMPHOCYTE (%) 1.7 % (15-42); LYMPHOCYTE COUNT 0.2 K/uL (1.0-2.8); MCHC 32.1 G/DL (30.0-36.0); MCV 96.7 FL (83-99); MONOCYTE (%) 4.5 % (3-12); MONOCYTE COUNT 0.4 K/uL (0-0.8); NEUTROPHIL (%) 93.4 % (45-76); NEUTROPHIL COUNT 8.1 K/uL (1.8-6.4); PLATELET COUNT 84 K/uL (156-360); RBC DIS.WIDTH-CV 15.3 % (11.8-14.6); RBC DIS.WIDTH-SD 54.7 % (39-53); RED BLOOD COUNT 4.48 M/uL (3.80-5.20); WHITE BLOOD COUNT 8.7 K/uL (4.1-10.2)
[2018-03-03 10:43] LABS: ALBUMIN 3.1 G/DL (3.2-4.8); ALKALINE PHOSPHATASE 121 IU/L (3-129); ALT (GPT) 61 IU/L (3-49); AST (GOT) 12 IU/L (2-34); CHLORIDE 95 MEQ/L (99-109); CREATININE 0.6 MG/DL (0.6-1.3); GFR ESTIMATE (CALCULATED) > 59 mL/min/; GLUCOSE 159 mg/dL (70-99); MAGNESIUM 2.3 mg/dl (1.3-2.7); POTASSIUM 4.4 MEQ/L (3.7-5.4); SODIUM 136 MEQ/L (136-147); TOTAL BILIRUBIN 0.5 MG/DL (0.0-1.0); TOTAL PROTEIN 6.2 G/DL (6.4-8.3); UREA NITROGEN (BUN) 43 mg/dL (9-23)
[2018-03-03 10:45] LABS: PHOSPHORUS 4.8 mg/dL (2.5-4.9)
[2018-03-03 16:22] LABS: BASE EXCESS 11.1 mEq/L (-3 to +3); COMMENTS - BLOOD GASES C+; DEVICE VENT; FI02 100 %; MECHANICAL RATE 25 resp/min; METHEMOGLOBIN 1.4 % (0-1.5); MODE ACVC+; PCO2 52 mm Hg (35-45); PO2 87 mm Hg (80-100); SITE A LINE; TOTAL RESP RATE 25 resp/min; pH 7.46 (7.35-7.45)
[2018-03-03 16:23] LABS: INSPIRATION TIME 1.25 seconds; PEEP 20 CM/H20; TIDAL VOLUME 325 ML
[2018-03-04] VITALS (19 sets, daily range): BP systolic 101–121; BP diastolic 55–67
[2018-03-04 11:16] LABS: BASOPHIL (%) 0 % (0-1); EOSINOPHIL (%) 0.1 % (0-5); HEMATOCRIT 42.5 % (36.0-46.0); HEMOGLOBIN 13.4 G/DL (11.9-15.5); IMMATURE GRANULOCYTE (%) 0.5 % (0.0-0.7); LYMPHOCYTE (%) 1.8 % (15-42); LYMPHOCYTE COUNT 0.2 K/uL (1.0-2.8); MCH 31.1 PG (29.0-34.0); MCHC 31.5 G/DL (30.0-36.0); MCV 98.6 FL (83-99); MONOCYTE COUNT 0.4 K/uL (0-0.8); NEUTROPHIL (%) 92.6 % (45-76); NEUTROPHIL COUNT 7.6 K/uL (1.8-6.4); RBC DIS.WIDTH-CV 15.3 % (11.8-14.6); RBC DIS.WIDTH-SD 56.5 % (39-53); RED BLOOD COUNT 4.31 M/uL (3.80-5.20); WHITE BLOOD COUNT 8.2 K/uL (4.1-10.2)
[2018-03-04 11:30] LABS: ALBUMIN 3.1 G/DL (3.2-4.8); ALKALINE PHOSPHATASE 113 IU/L (3-129); ALT (GPT) 51 IU/L (3-49); AST (GOT) 10 IU/L (2-34); CHLORIDE 96 MEQ/L (99-109); CREATININE 0.8 MG/DL (0.6-1.3); GFR ESTIMATE (CALCULATED) > 59 mL/min/; GLUCOSE 217 mg/dL (70-99); POTASSIUM 4.6 MEQ/L (3.7-5.4); SODIUM 135 MEQ/L (136-147); TOTAL BILIRUBIN 0.5 MG/DL (0.0-1.0); UREA NITROGEN (BUN) 48 mg/dL (9-23)
[2018-03-04 11:32] LABS: EOSINOPHIL ABS CT 0; LYMPHOCYTES 0.9 % (15.0-45.0); MONOCYTES 1.7 % (0-9.0); PLAT.SUFFICIENCY DECREASED; PLATELET COUNT 91 K/uL (156-360); SEG.NEUTROPHILS 97.4 % (46.0-76.0)
[2018-03-04 12:17] LABS: BASE EXCESS 6.9 mEq/L (-3 to +3); BICARBONATE 34.8 mEq/L (22-26); CARBOXY HGB 2.2 % (0-5); COMMENTS - BLOOD GASES A+C+; DEVICE VENT; FI02 80 %; METHEMOGLOBIN 1.8 % (0-1.5); MODE ACVC+; PCO2 63 mm Hg (35-45); PO2 87 mm Hg (80-100); SITE LR; pH 7.35 (7.35-7.45)
[2018-03-04 12:18] LABS: MECHANICAL RATE 30 resp/min; PEEP 20 CM/H20; TIDAL VOLUME 325 ML; TOTAL RESP RATE 32 resp/min
[2018-03-05] VITALS (15 sets, daily range): BP systolic 106–147; BP diastolic 51–71
[2018-03-05 05:44] LABS: HEMOGLOBIN 13.5 G/DL (11.9-15.5); MCH 30.7 PG (29.0-34.0); MCHC 31.4 G/DL (30.0-36.0); MCV 97.7 FL (83-99); PLATELET COUNT 89 K/uL (156-360); RBC DIS.WIDTH-SD 54.3 % (39-53); WHITE BLOOD COUNT 7.2 K/uL (4.1-10.2)
[2018-03-05 20:47] LABS: CHLORIDE 95 MEQ/L (99-109); CREATININE 0.7 MG/DL (0.6-1.3); GFR ESTIMATE (CALCULATED) > 59 mL/min/; GLUCOSE 214 mg/dL (70-99); PHOSPHORUS 4.6 mg/dL (2.5-4.9); POTASSIUM 5.2 MEQ/L (3.7-5.4); SODIUM 137 MEQ/L (136-147); UREA NITROGEN (BUN) 58 mg/dL (9-23)
[2018-03-05 20:48] LABS: MAGNESIUM 2.8 mg/dl (1.3-2.7)
[2018-03-06] VITALS (24 sets, daily range): BP systolic 109–141; BP diastolic 53–76
[2018-03-06 06:03] LABS: CHLORIDE 94 MEQ/L (99-109); CREATININE 0.7 MG/DL (0.6-1.3); GFR ESTIMATE (CALCULATED) > 59 mL/min/; GLUCOSE 193 mg/dL (70-99); POTASSIUM 4.6 MEQ/L (3.7-5.4); SODIUM 138 MEQ/L (136-147); UREA NITROGEN (BUN) 60 mg/dL (9-23)
[2018-03-06 06:30] LABS: BASOPHIL (%) 0 % (0-1); EOSINOPHIL (%) 0 % (0-5); HEMATOCRIT 42.3 % (36.0-46.0); HEMOGLOBIN 13.3 G/DL (11.9-15.5); IMMATURE GRANULOCYTE (%) 0.3 % (0.0-0.7); LYMPHOCYTE (%) 1.6 % (15-42); LYMPHOCYTE COUNT 0.1 K/uL (1.0-2.8); MCHC 31.4 G/DL (30.0-36.0); MCV 98.6 FL (83-99); MONOCYTE (%) 3.8 % (3-12); MONOCYTE COUNT 0.2 K/uL (0-0.8); NEUTROPHIL (%) 94.3 % (45-76); NEUTROPHIL COUNT 5.5 K/uL (1.8-6.4); PLATELET COUNT 83 K/uL (156-360); RBC DIS.WIDTH-CV 15.1 % (11.8-14.6); RBC DIS.WIDTH-SD 55.2 % (39-53); RED BLOOD COUNT 4.29 M/uL (3.80-5.20); WHITE BLOOD COUNT 5.8 K/uL (4.1-10.2)
[2018-03-07] VITALS (21 sets, daily range): BP systolic 99–160; BP diastolic 49–88
[2018-03-07 05:06] LABS: HEMOGLOBIN 13.9 G/DL (11.9-15.5); MCH 31.7 PG (29.0-34.0); MCHC 32.3 G/DL (30.0-36.0); MCV 98.2 FL (83-99); PLATELET COUNT 77 K/uL (156-360); RBC DIS.WIDTH-CV 14.6 % (11.8-14.6); RBC DIS.WIDTH-SD 52.7 % (39-53); RED BLOOD COUNT 4.38 M/uL (3.80-5.20); WHITE BLOOD COUNT 11.7 K/uL (4.1-10.2)
[2018-03-07 05:25] LABS: CHLORIDE 92 mEq/L (99-109); POTASSIUM 4.6 mEq/L (3.7-5.4)
[2018-03-07 05:26] LABS: SODIUM 138 mEq/L (136-147)
[2018-03-07 05:27] LABS: GLUCOSE 163 mg/dL (70-99)
[2018-03-07 05:31] LABS: CREATININE 0.7 mg/dL (0.6-1.3); GFR ESTIMATE (CALCULATED) > 59 mL/min/
[2018-03-07 05:32] LABS: UREA NITROGEN (BUN) 58 mg/dL (9-23)
[2018-03-08] VITALS (24 sets, daily range): BP systolic 89–137; BP diastolic 49–74
[2018-03-08 04:59] LABS: BASOPHIL (%) 0.1 % (0-1); CHLORIDE 90 mEq/L (99-109); EOSINOPHIL (%) 0 % (0-5); HEMATOCRIT 42.9 % (36.0-46.0); HEMOGLOBIN 13.8 G/DL (11.9-15.5); IMMATURE GRANULOCYTE (%) 0.5 % (0.0-0.7); LYMPHOCYTE (%) 1.2 % (15-42); LYMPHOCYTE COUNT 0.1 K/uL (1.0-2.8); MCH 31.9 PG (29.0-34.0); MCHC 32.2 G/DL (30.0-36.0); MCV 99.3 FL (83-99); MONOCYTE (%) 3.5 % (3-12); MONOCYTE COUNT 0.4 K/uL (0-0.8); NEUTROPHIL (%) 94.7 % (45-76); NEUTROPHIL COUNT 11.4 K/uL (1.8-6.4); PLATELET COUNT 77 K/uL (156-360); POTASSIUM 4.9 mEq/L (3.7-5.4); RBC DIS.WIDTH-CV 14.5 % (11.8-14.6); RBC DIS.WIDTH-SD 52.8 % (39-53); RED BLOOD COUNT 4.32 M/uL (3.80-5.20); SODIUM 141 mEq/L (136-147)
[2018-03-08 05:01] LABS: GLUCOSE 174 mg/dL (70-99)
[2018-03-08 05:05] LABS: CREATININE 0.7 mg/dL (0.6-1.3); GFR ESTIMATE (CALCULATED) > 59 mL/min/
[2018-03-08 05:06] LABS: UREA NITROGEN (BUN) 48 mg/dL (9-23)
[2018-03-08 10:59] LABS: BASE EXCESS 18.9 mEq/L (-3 to +3); BICARBONATE 48.2 mEq/L (22-26); CARBOXY HGB 2.2 % (0-5); COMMENTS - BLOOD GASES C+; DEVICE VENT; FI02 100 %; MECHANICAL RATE 6 resp/min; METHEMOGLOBIN 1.8 % (0-1.5); MODE SIMV; PCO2 76 mm Hg (35-45); PO2 61 mm Hg (80-100); SITE LR; TOTAL RESP RATE 27 resp/min; pH 7.41 (7.35-7.45)
[2018-03-08 11:00] LABS: PEEP 15 CM/H20; PRES. SUPPORT 8 CM/H2O
[2018-03-09] VITALS (16 sets, daily range): BP systolic 98–135; BP diastolic 48–80
[2018-03-09 05:49] LABS: BASOPHIL (%) 0.1 % (0-1); EOSINOPHIL (%) 0 % (0-5); HEMATOCRIT 43.8 % (36.0-46.0); HEMOGLOBIN 13.6 G/DL (11.9-15.5); IMMATURE GRANULOCYTE (%) 0.6 % (0.0-0.7); LYMPHOCYTE COUNT 0.2 K/uL (1.0-2.8); MCH 30.8 PG (29.0-34.0); MCHC 31.1 G/DL (30.0-36.0); MCV 99.1 FL (83-99); MONOCYTE (%) 3.8 % (3-12); MONOCYTE COUNT 0.5 K/uL (0-0.8); NEUTROPHIL (%) 93.5 % (45-76); NEUTROPHIL COUNT 11.4 K/uL (1.8-6.4); PLATELET COUNT 66 K/uL (156-360); RBC DIS.WIDTH-CV 14.1 % (11.8-14.6); RBC DIS.WIDTH-SD 51.9 % (39-53); RED BLOOD COUNT 4.42 M/uL (3.80-5.20); WHITE BLOOD COUNT 12.2 K/uL (4.1-10.2)
[2018-03-09 05:58] LABS: CHLORIDE 88 MEQ/L (99-109); CREATININE 0.5 MG/DL (0.6-1.3); GFR ESTIMATE (CALCULATED) > 59 mL/min/; GLUCOSE 176 mg/dL (70-99); POTASSIUM 4.7 MEQ/L (3.7-5.4); SODIUM 139 MEQ/L (136-147); UREA NITROGEN (BUN) 39 mg/dL (9-23)
[2018-03-09 06:16] LABS: CARBON DIOXIDE (BICARBONATE) > 40.0 MEQ/L (20-31)
[2018-03-09 17:03] LABS: BASE EXCESS 21.5 mEq/L (-3 to +3); BICARBONATE 51.1 mEq/L (22-26); CARBOXY HGB 2.2 % (0-5); METHEMOGLOBIN 1.5 % (0-1.5); PCO2 77 mm Hg (35-45); pH 7.43 (7.35-7.45)
[2018-03-09 17:04] LABS: COMMENTS - BLOOD GASES C+; DEVICE VENT; FI02 80 %; MECHANICAL RATE 4 resp/min; MODE SIMV; PEEP 13 CM/H20; PO2 47 mm Hg (80-100); PRES. SUPPORT 8 CM/H2O; SITE ALINE; TIDAL VOLUME 500 ML; TOTAL RESP RATE 32 resp/min
[2018-03-10] VITALS (24 sets, daily range): BP systolic 91–150; BP diastolic 38–87
[2018-03-10 06:22] LABS: BASOPHIL (%) 0.1 % (0-1); EOSINOPHIL (%) 0 % (0-5); HEMATOCRIT 41.9 % (36.0-46.0); HEMOGLOBIN 13.3 G/DL (11.9-15.5); IMMATURE GRANULOCYTE (%) 0.6 % (0.0-0.7); LYMPHOCYTE (%) 1.9 % (15-42); LYMPHOCYTE COUNT 0.2 K/uL (1.0-2.8); MCH 31.3 PG (29.0-34.0); MCHC 31.7 G/DL (30.0-36.0); MCV 98.6 FL (83-99); MONOCYTE (%) 3.6 % (3-12); MONOCYTE COUNT 0.4 K/uL (0-0.8); NEUTROPHIL (%) 93.8 % (45-76); NEUTROPHIL COUNT 9.1 K/uL (1.8-6.4); PLATELET COUNT 62 K/uL (156-360); RBC DIS.WIDTH-CV 14.1 % (11.8-14.6); RED BLOOD COUNT 4.25 M/uL (3.80-5.20); WHITE BLOOD COUNT 9.7 K/uL (4.1-10.2)
[2018-03-10 06:47] LABS: CHLORIDE 87 MEQ/L (99-109); CREATININE 0.4 MG/DL (0.6-1.3); GFR ESTIMATE (CALCULATED) > 59 mL/min/; GLUCOSE 184 mg/dL (70-99); POTASSIUM 4.7 MEQ/L (3.7-5.4); SODIUM 137 MEQ/L (136-147); UREA NITROGEN (BUN) 39 mg/dL (9-23)
[2018-03-10 06:49] LABS: CARBON DIOXIDE (BICARBONATE) > 40.0 MEQ/L (20-31)
[2018-03-11] VITALS (21 sets, daily range): BP systolic 116–146; BP diastolic 55–79
[2018-03-11 06:21] LABS: BASOPHIL (%) 0.1 % (0-1); EOSINOPHIL (%) 0 % (0-5); HEMATOCRIT 42.3 % (36.0-46.0); HEMOGLOBIN 13.6 G/DL (11.9-15.5); IMMATURE GRANULOCYTE (%) 0.2 % (0.0-0.7); LYMPHOCYTE COUNT 0.2 K/uL (1.0-2.8); MCH 31.5 PG (29.0-34.0); MCHC 32.2 G/DL (30.0-36.0); MCV 97.9 FL (83-99); MONOCYTE (%) 3.2 % (3-12); MONOCYTE COUNT 0.3 K/uL (0-0.8); NEUTROPHIL (%) 94.5 % (45-76); NEUTROPHIL COUNT 7.9 K/uL (1.8-6.4); PLATELET COUNT 59 K/uL (156-360); RBC DIS.WIDTH-SD 51.1 % (39-53); RED BLOOD COUNT 4.32 M/uL (3.80-5.20); WHITE BLOOD COUNT 8.4 K/uL (4.1-10.2)
[2018-03-11 06:28] LABS: INTER. NORMALIZED RATIO ND
[2018-03-11 06:44] LABS: CHLORIDE 91 MEQ/L (99-109); CREATININE 0.5 MG/DL (0.6-1.3); GFR ESTIMATE (CALCULATED) > 59 mL/min/; GLUCOSE 182 mg/dL (70-99); MAGNESIUM 2.3 mg/dl (1.3-2.7); POTASSIUM 4.7 MEQ/L (3.7-5.4); SODIUM 139 MEQ/L (136-147); UREA NITROGEN (BUN) 41 mg/dL (9-23)
[2018-03-11 07:08] LABS: VANCOMYCIN, TROUGH 20.6 MCG/ML (10-20)
[2018-03-11 07:41] LABS: PTT 19.9 SEC (25-37)
[2018-03-12] VITALS (20 sets, daily range): BP systolic 109–163; BP diastolic 67–124
[2018-03-12 00:58] LABS: TROP-I INTERPRETATION NEGATIVE; TROPONIN-I 0.02 ng/mL (0.0-0.30)
[2018-03-12 08:47] LABS: MCH 31.7 PG (29.0-34.0); MCHC 32.6 G/DL (30.0-36.0); MCV 97.3 FL (83-99); RBC DIS.WIDTH-SD 50.2 % (39-53); RED BLOOD COUNT 4.42 M/uL (3.80-5.20); WHITE BLOOD COUNT 9.1 K/uL (4.1-10.2)
[2018-03-12 08:53] LABS: TROP-I INTERPRETATION NEGATIVE; TROPONIN-I < 0.01 ng/mL (0.0-0.30)
[2018-03-12 09:01] LABS: PLAT.SUFFICIENCY DECREASED; PLATELET CLUMPS PRESENT - PLATELET COUNTS APPEARS DECREASED
[2018-03-12 09:04] LABS: PLATELET COUNT UNABLE TO REPORT K/uL (156-360)
[2018-03-13] VITALS (22 sets, daily range): BP systolic 96–141; BP diastolic 58–78
[2018-03-13 04:41] LABS: HEMOGLOBIN 14.3 G/DL (11.9-15.5); MCH 31.4 PG (29.0-34.0); MCHC 33.3 G/DL (30.0-36.0); MCV 94.3 FL (83-99); RBC DIS.WIDTH-CV 13.9 % (11.8-14.6); RBC DIS.WIDTH-SD 48.4 % (39-53); RED BLOOD COUNT 4.56 M/uL (3.80-5.20); WHITE BLOOD COUNT 11.1 K/uL (4.1-10.2)
[2018-03-13 04:49] LABS: PLATELET COUNT 51 K/uL (156-360)
[2018-03-13 04:55] LABS: CHLORIDE 88 mEq/L (99-109); POTASSIUM 4.3 mEq/L (3.7-5.4); SODIUM 137 mEq/L (136-147)
[2018-03-13 04:57] LABS: GLUCOSE 189 mg/dL (70-99)
[2018-03-13 05:01] LABS: CREATININE 0.6 mg/dL (0.6-1.3); GFR ESTIMATE (CALCULATED) > 59 mL/min/
[2018-03-13 05:02] LABS: UREA NITROGEN (BUN) 33 mg/dL (9-23)
[2018-03-13 05:43] LABS: BASE EXCESS 18.9 mEq/L (-3 to +3); BICARBONATE 43.9 mEq/L (22-26); CARBOXY HGB 3.6 % (0-5); METHEMOGLOBIN 2.2 % (0-1.5); PCO2 49 mm Hg (35-45); PO2 65 mm Hg (80-100); pH 7.56 (7.35-7.45)
[2018-03-13 05:44] LABS: COMMENTS - BLOOD GASES C; DEVICE VENT; FI02 100 %; INSPIRATION TIME 1.1 seconds; MECHANICAL RATE 20 resp/min; MODE AC; SITE LR; TIDAL VOLUME 500 ML; TOTAL RESP RATE 20 resp/min
[2018-03-13 05:45] LABS: PEEP 15 CM/H20
[2018-03-14] VITALS (24 sets, daily range): BP systolic 103–163; BP diastolic 54–104
[2018-03-14 05:42] LABS: HEMATOCRIT 40.1 % (36.0-46.0); HEMOGLOBIN 13.2 G/DL (11.9-15.5); MCH 31.2 PG (29.0-34.0); MCHC 32.9 G/DL (30.0-36.0); MCV 94.8 FL (83-99); RBC DIS.WIDTH-CV 13.8 % (11.8-14.6); RBC DIS.WIDTH-SD 48.5 % (39-53); RED BLOOD COUNT 4.23 M/uL (3.80-5.20); WHITE BLOOD COUNT 7.6 K/uL (4.1-10.2)
[2018-03-14 05:50] LABS: BASE EXCESS 15.8 mEq/L (-3 to +3); BICARBONATE 41.9 mEq/L (22-26); CARBOXY HGB 2.2 % (0-5); COMMENTS - BLOOD GASES C+; DEVICE VENT; FI02 80 %; METHEMOGLOBIN 1.3 % (0-1.5); PCO2 55 mm Hg (35-45); PO2 59 mm Hg (80-100); SITE LR; pH 7.49 (7.35-7.45)
[2018-03-14 05:51] LABS: INSPIRATION TIME 1.1 seconds; MECHANICAL RATE 18 resp/min; MODE AC+; PEEP 15 CM/H20; TIDAL VOLUME 450 ML; TOTAL RESP RATE 19 resp/min
[2018-03-14 05:58] LABS: CHLORIDE 87 MEQ/L (99-109); CREATININE 0.4 MG/DL (0.6-1.3); GFR ESTIMATE (CALCULATED) > 59 mL/min/; GLUCOSE 203 mg/dL (70-99); POTASSIUM 3.9 MEQ/L (3.7-5.4); SODIUM 133 MEQ/L (136-147); UREA NITROGEN (BUN) 35 mg/dL (9-23)
[2018-03-14 06:19] LABS: PLAT.SUFFICIENCY VERY DECREASED
[2018-03-14 06:52] LABS: PLATELET COUNT 48 K/uL (156-360)
[2018-03-14 13:20] LABS: Heparin Induced Plt Ab Negative (Negative)
[2018-03-14 16:17] LABS: UFH SRA Result Negative (Negative)
[2018-03-15] VITALS (30 sets, daily range): BP systolic 81–172; BP diastolic 49–81
[2018-03-15 04:57] LABS: BASOPHIL (%) 0 % (0-1); EOSINOPHIL (%) 1.4 % (0-5); EOSINOPHIL COUNT 0.1 K/uL (0-0.3); HEMOGLOBIN 12.2 G/DL (11.9-15.5); IMMATURE GRANULOCYTE (%) 0.5 % (0.0-0.7); LYMPHOCYTE (%) 14.5 % (15-42); LYMPHOCYTE COUNT 1.1 K/uL (1.0-2.8); MCH 31.6 PG (29.0-34.0); MCV 95.9 FL (83-99); MONOCYTE (%) 3.5 % (3-12); MONOCYTE COUNT 0.3 K/uL (0-0.8); NEUTROPHIL (%) 80.1 % (45-76); NEUTROPHIL COUNT 5.9 K/uL (1.8-6.4); RBC DIS.WIDTH-SD 49.2 % (39-53); RED BLOOD COUNT 3.86 M/uL (3.80-5.20); WHITE BLOOD COUNT 7.4 K/uL (4.1-10.2)
[2018-03-15 05:01] LABS: CHLORIDE 90 mEq/L (99-109); POTASSIUM 3.8 mEq/L (3.7-5.4); SODIUM 139 mEq/L (136-147)
[2018-03-15 05:06] LABS: CREATININE 0.5 mg/dL (0.6-1.3); GFR ESTIMATE (CALCULATED) > 59 mL/min/
[2018-03-15 05:07] LABS: UREA NITROGEN (BUN) 41 mg/dL (9-23)
[2018-03-15 05:16] LABS: GLUCOSE 110 mg/dL (70-99)
[2018-03-15 05:47] LABS: IMM.PLATELET FRACTION 21.9 (1-7); PLAT.SUFFICIENCY VERY DECREASED; PLATELET COUNT 41 K/uL (156-360)
[2018-03-16] VITALS (17 sets, daily range): BP systolic 112–147; BP diastolic 61–81
[2018-03-16 05:37] LABS: HEMATOCRIT 35.8 % (36.0-46.0); HEMOGLOBIN 11.4 G/DL (11.9-15.5); MCH 30.6 PG (29.0-34.0); MCHC 31.8 G/DL (30.0-36.0); RBC DIS.WIDTH-CV 14.3 % (11.8-14.6); RBC DIS.WIDTH-SD 50.4 % (39-53); RED BLOOD COUNT 3.73 M/uL (3.80-5.20); WHITE BLOOD COUNT 6.1 K/uL (4.1-10.2)
[2018-03-16 05:46] LABS: PLATELET COUNT 54 K/uL (156-360)
[2018-03-17] VITALS (19 sets, daily range): BP systolic 118–143; BP diastolic 68–81
[2018-03-18] VITALS (17 sets, daily range): BP systolic 114–135; BP diastolic 63–94
[2018-03-18 05:31] LABS: HEMOGLOBIN 11.8 G/DL (11.9-15.5); MCH 31.5 PG (29.0-34.0); MCHC 32.8 G/DL (30.0-36.0); PLATELET COUNT 53 K/uL (156-360); RBC DIS.WIDTH-CV 14.1 % (11.8-14.6); RBC DIS.WIDTH-SD 49.7 % (39-53); RED BLOOD COUNT 3.75 M/uL (3.80-5.20); WHITE BLOOD COUNT 5.4 K/uL (4.1-10.2)
[2018-03-18 06:21] LABS: CHLORIDE 94 MEQ/L (99-109); CREATININE 0.3 MG/DL (0.6-1.3); GFR ESTIMATE (CALCULATED) > 59 mL/min/; GLUCOSE 148 mg/dL (70-99); POTASSIUM 3.3 MEQ/L (3.7-5.4); SODIUM 137 MEQ/L (136-147); UREA NITROGEN (BUN) 28 mg/dL (9-23)
[2018-03-19] VITALS (32 sets, daily range): BP systolic 122–181; BP diastolic 67–109
[2018-03-19 05:23] LABS: HEMATOCRIT 36.4 % (36.0-46.0); HEMOGLOBIN 11.7 G/DL (11.9-15.5); MCHC 32.1 G/DL (30.0-36.0); MCV 96.3 FL (83-99); PLATELET COUNT 67 K/uL (156-360); RBC DIS.WIDTH-CV 14.1 % (11.8-14.6); RBC DIS.WIDTH-SD 49.8 % (39-53); RED BLOOD COUNT 3.78 M/uL (3.80-5.20); WHITE BLOOD COUNT 7.8 K/uL (4.1-10.2)
[2018-03-19 11:06] LABS: BASE EXCESS 9.5 mEq/L (-3 to +3); BICARBONATE 34.3 mEq/L (22-26); CARBOXY HGB 2.3 % (0-5); COMMENTS - BLOOD GASES A+C+; DEVICE VENT; FI02 55 %; METHEMOGLOBIN 1.6 % (0-1.5); MODE SPONT; PCO2 46 mm Hg (35-45); PO2 54 mm Hg (80-100); SITE RR; TOTAL RESP RATE 29 resp/min; pH 7.48 (7.35-7.45)
[2018-03-19 11:07] LABS: PEEP 12 CM/H20; PRES. SUPPORT 15 CM/H2O
[2018-03-19 12:33] LABS: HEMATOCRIT 36.4 % (36.0-46.0); HEMOGLOBIN 11.8 G/DL (11.9-15.5); MCH 31.5 PG (29.0-34.0); MCHC 32.4 G/DL (30.0-36.0); MCV 97.1 FL (83-99); PLATELET COUNT 69 K/uL (156-360); RBC DIS.WIDTH-CV 14.5 % (11.8-14.6); RBC DIS.WIDTH-SD 51.3 % (39-53); RED BLOOD COUNT 3.75 M/uL (3.80-5.20); WHITE BLOOD COUNT 6.7 K/uL (4.1-10.2)
[2018-03-19 13:03] LABS: ABS NEUTROPHIL COUNT 5.4; ANISOCYTOSIS 1+; BAND NEUTROPHILS 3.5 % (0-8.0); EOSINOPHIL ABS CT 0.1; EOSINOPHILS 0.8 % (0-5.0); LYMPHOCYTES 14.8 % (15.0-45.0); MACROCYTES 1+; MONOCYTES 3.5 % (0-9.0); PLAT.SUFFICIENCY DECREASED
[2018-03-19 13:12] LABS: SEG.NEUTROPHILS 77.4 % (46.0-76.0)
[2018-03-19 13:34] LABS: ALBUMIN 3.3 G/DL (3.2-4.8); ALKALINE PHOSPHATASE 121 IU/L (3-129); ALT (GPT) 80 IU/L (3-49); AST (GOT) 27 IU/L (2-34); CHLORIDE 96 MEQ/L (99-109); CREATININE 0.3 MG/DL (0.6-1.3); GFR ESTIMATE (CALCULATED) > 59 mL/min/; GLUCOSE 161 mg/dL (70-99); HIGH-SENS C-REACTIVE PROTEIN 4.24 MG/DL (0.02-0.20); LACTATE DEHYDROGENASE 253 IU/L (20-246); MAGNESIUM 1.8 mg/dl (1.3-2.7); POTASSIUM 3.8 MEQ/L (3.7-5.4); SODIUM 137 MEQ/L (136-147); TOTAL PROTEIN 6.2 G/DL (6.4-8.3); UREA NITROGEN (BUN) 28 mg/dL (9-23)
[2018-03-19 13:35] LABS: PHOSPHORUS 2.8 mg/dL (2.5-4.9)
[2018-03-20] VITALS (29 sets, daily range): BP systolic 108–201; BP diastolic 56–114
[2018-03-20 05:29] LABS: BASOPHIL (%) 0.2 % (0-1); EOSINOPHIL (%) 2.1 % (0-5); EOSINOPHIL COUNT 0.1 K/uL (0-0.3); HEMATOCRIT 35.1 % (36.0-46.0); HEMOGLOBIN 11.2 G/DL (11.9-15.5); IMMATURE GRANULOCYTE (%) 1.3 % (0.0-0.7); LYMPHOCYTE (%) 14.2 % (15-42); LYMPHOCYTE COUNT 0.8 K/uL (1.0-2.8); MCHC 31.9 G/DL (30.0-36.0); MCV 97.2 FL (83-99); MONOCYTE (%) 4.5 % (3-12); MONOCYTE COUNT 0.2 K/uL (0-0.8); NEUTROPHIL (%) 77.7 % (45-76); NEUTROPHIL COUNT 4.2 K/uL (1.8-6.4); PLATELET COUNT 75 K/uL (156-360); RBC DIS.WIDTH-CV 14.5 % (11.8-14.6); RBC DIS.WIDTH-SD 51.6 % (39-53); RED BLOOD COUNT 3.61 M/uL (3.80-5.20); WHITE BLOOD COUNT 5.3 K/uL (4.1-10.2)
[2018-03-20 05:45] LABS: HIGH-SENS C-REACTIVE PROTEIN 7.81 MG/DL (0.02-0.20); MAGNESIUM 1.8 mg/dl (1.3-2.7); PHOSPHORUS 3.1 mg/dL (2.5-4.9)
[2018-03-20 08:01] LABS: ALBUMIN 3.4 G/DL (3.2-4.8); ALT (GPT) 77 IU/L (3-49); AST (GOT) 28 IU/L (2-34); CHLORIDE 97 MEQ/L (99-109); CREATININE 0.4 MG/DL (0.6-1.3); GFR ESTIMATE (CALCULATED) > 59 mL/min/; GLUCOSE 188 mg/dL (70-99); POTASSIUM 3.7 MEQ/L (3.7-5.4); SODIUM 137 MEQ/L (136-147); THYROTROPIN (TSH) 2.2 MIU/L (0.4-5.5); TOTAL BILIRUBIN 1.2 MG/DL (0.0-1.0); TOTAL PROTEIN 6.1 G/DL (6.4-8.3); UREA NITROGEN (BUN) 28 mg/dL (9-23)
[2018-03-20 08:03] LABS: ALKALINE PHOSPHATASE 161 IU/L (3-129)
[2018-03-20 10:58] LABS: BASE EXCESS 7.1 mEq/L (-3 to +3); BICARBONATE 34.5 mEq/L (22-26); CARBOXY HGB 2.3 % (0-5); METHEMOGLOBIN 1.1 % (0-1.5); PO2 47 mm Hg (80-100)
[2018-03-20 10:59] LABS: PCO2 61 mm Hg (35-45); SITE RR; pH 7.36 (7.35-7.45)
[2018-03-20 11:00] LABS: COMMENTS - BLOOD GASES A+C+; DEVICE VENT; FI02 100 %; MECHANICAL RATE 18 resp/min; MODE AC; PEEP 18 CM/H20; TIDAL VOLUME 450 ML; TOTAL RESP RATE 32 resp/min
[2018-03-21] VITALS (20 sets, daily range): BP systolic 123–182; BP diastolic 57–112
[2018-03-21 05:51] LABS: BASOPHIL (%) 0.3 % (0-1); EOSINOPHIL (%) 0 % (0-5); HEMATOCRIT 34.2 % (36.0-46.0); HEMOGLOBIN 11.1 G/DL (11.9-15.5); IMMATURE GRANULOCYTE (%) 1.8 % (0.0-0.7); LYMPHOCYTE (%) 7.5 % (15-42); LYMPHOCYTE COUNT 0.3 K/uL (1.0-2.8); MCH 31.3 PG (29.0-34.0); MCHC 32.5 G/DL (30.0-36.0); MCV 96.3 FL (83-99); MONOCYTE (%) 2.8 % (3-12); MONOCYTE COUNT 0.1 K/uL (0-0.8); NEUTROPHIL (%) 87.6 % (45-76); NEUTROPHIL COUNT 3.4 K/uL (1.8-6.4); PLATELET COUNT 79 K/uL (156-360); RBC DIS.WIDTH-CV 13.9 % (11.8-14.6); RBC DIS.WIDTH-SD 49.5 % (39-53); RED BLOOD COUNT 3.55 M/uL (3.80-5.20); WHITE BLOOD COUNT 3.9 K/uL (4.1-10.2)
[2018-03-21 06:44] LABS: ALBUMIN 3.2 G/DL (3.2-4.8); ALKALINE PHOSPHATASE 152 IU/L (3-129); ALT (GPT) 98 IU/L (3-49); AST (GOT) 31 IU/L (2-34); CHLORIDE 98 MEQ/L (99-109); CREATININE 0.3 MG/DL (0.6-1.3); GFR ESTIMATE (CALCULATED) > 59 mL/min/; GLUCOSE 204 mg/dL (70-99); POTASSIUM 3.9 MEQ/L (3.7-5.4); SODIUM 139 MEQ/L (136-147); TOTAL PROTEIN 6.1 G/DL (6.4-8.3); UREA NITROGEN (BUN) 24 mg/dL (9-23)
[2018-03-21 06:46] LABS: PHOSPHORUS 4.4 mg/dL (2.5-4.9); TOTAL BILIRUBIN 0.9 MG/DL (0.0-1.0)
[2018-03-21 10:56] LABS: BASE EXCESS 7.9 mEq/L (-3 to +3); BICARBONATE 33.3 mEq/L (22-26); CARBOXY HGB 1.8 % (0-5); COMMENTS - BLOOD GASES A+C+; DEVICE VENT; FI02 70 %; METHEMOGLOBIN 1.6 % (0-1.5); MODE AC; PCO2 49 mm Hg (35-45); PO2 62 mm Hg (80-100); SITE LR; pH 7.44 (7.35-7.45)
[2018-03-21 10:57] LABS: MECHANICAL RATE 18 resp/min; PEEP 10 CM/H20; TIDAL VOLUME 450 ML; TOTAL RESP RATE 24 resp/min
[2018-03-21 18:37] LABS: CHLORIDE 100 MEQ/L (99-109); MAGNESIUM 2.1 mg/dl (1.3-2.7); POTASSIUM 4.4 MEQ/L (3.7-5.4); SODIUM 136 MEQ/L (136-147)
[2018-03-21 18:42] LABS: CREATININE 0.3 MG/DL (0.6-1.3); GFR ESTIMATE (CALCULATED) > 59 mL/min/; GLUCOSE 185 mg/dL (70-99); PHOSPHORUS 4.2 mg/dL (2.5-4.9); UREA NITROGEN (BUN) 24 mg/dL (9-23)
[2018-03-21 18:47] LABS: TROP-I INTERPRETATION NEGATIVE; TROPONIN-I 0.01 ng/mL (0.0-0.30)
[2018-03-22] VITALS (22 sets, daily range): BP systolic 123–163; BP diastolic 57–96
[2018-03-22 05:13] LABS: HEMATOCRIT 34.1 % (36.0-46.0); HEMOGLOBIN 10.9 G/DL (11.9-15.5); MCH 30.5 PG (29.0-34.0); MCV 95.5 FL (83-99); RBC DIS.WIDTH-CV 13.8 % (11.8-14.6); RBC DIS.WIDTH-SD 49.1 % (39-53); RED BLOOD COUNT 3.57 M/uL (3.80-5.20)
[2018-03-22 05:45] LABS: PLATELET COUNT 105 K/uL (156-360)
[2018-03-22 06:23] LABS: ALBUMIN 3.1 G/DL (3.2-4.8); ALKALINE PHOSPHATASE 149 IU/L (3-129); ALT (GPT) 129 IU/L (3-49); AST (GOT) 41 IU/L (2-34); CHLORIDE 100 MEQ/L (99-109); CREATININE 0.4 MG/DL (0.6-1.3); GFR ESTIMATE (CALCULATED) > 59 mL/min/; GLUCOSE 263 mg/dL (70-99); PHOSPHORUS 4.4 mg/dL (2.5-4.9); POTASSIUM 3.9 MEQ/L (3.7-5.4); SODIUM 140 MEQ/L (136-147); TOTAL PROTEIN 5.9 G/DL (6.4-8.3); UREA NITROGEN (BUN) 30 mg/dL (9-23)
[2018-03-22 06:24] LABS: TOTAL BILIRUBIN 0.7 MG/DL (0.0-1.0)
[2018-03-22 06:42] LABS: BASOPHIL (%) 0 % (0-1); EOSINOPHIL (%) 0 % (0-5); IMMATURE GRANULOCYTE (%) 1.8 % (0.0-0.7); LYMPHOCYTE (%) 6.4 % (15-42); LYMPHOCYTE COUNT 0.3 K/uL (1.0-2.8); MONOCYTE (%) 4.8 % (3-12); MONOCYTE COUNT 0.2 K/uL (0-0.8); NEUTROPHIL COUNT 4.3 K/uL (1.8-6.4)
[2018-03-23] VITALS (23 sets, daily range): BP systolic 106–166; BP diastolic 44–87
[2018-03-23 05:38] LABS: BASOPHIL (%) 0.2 % (0-1); EOSINOPHIL (%) 0 % (0-5); HEMATOCRIT 34.2 % (36.0-46.0); LYMPHOCYTE (%) 8.3 % (15-42); LYMPHOCYTE COUNT 0.4 K/uL (1.0-2.8); MCH 31.3 PG (29.0-34.0); MCHC 32.2 G/DL (30.0-36.0); MCV 97.2 FL (83-99); MONOCYTE (%) 6.3 % (3-12); MONOCYTE COUNT 0.3 K/uL (0-0.8); NEUTROPHIL (%) 81.2 % (45-76); NEUTROPHIL COUNT 3.6 K/uL (1.8-6.4); PLATELET COUNT 131 K/uL (156-360); RBC DIS.WIDTH-CV 14.4 % (11.8-14.6); RBC DIS.WIDTH-SD 51.3 % (39-53); RED BLOOD COUNT 3.52 M/uL (3.80-5.20); WHITE BLOOD COUNT 4.5 K/uL (4.1-10.2)
[2018-03-23 05:39] LABS: BASE EXCESS 6.3 mEq/L (-3 to +3); BICARBONATE 31.8 mEq/L (22-26); CARBOXY HGB 1.9 % (0-5); COMMENTS - BLOOD GASES C+; DEVICE VENT; FI02 60 %; INSPIRATION TIME 0.6 seconds; MECHANICAL RATE 18 resp/min; METHEMOGLOBIN 1.8 % (0-1.5); MODE ACVC+; PCO2 49 mm Hg (35-45); PO2 56 mm Hg (80-100); SITE RR; TIDAL VOLUME 450 ML; TOTAL RESP RATE 25 resp/min; pH 7.42 (7.35-7.45)
[2018-03-23 05:40] LABS: PEEP 10 CM/H20
[2018-03-23 06:16] LABS: ALBUMIN 2.9 G/DL (3.2-4.8); ALKALINE PHOSPHATASE 140 IU/L (3-129); ALT (GPT) 121 IU/L (3-49); AST (GOT) 26 IU/L (2-34); CHLORIDE 102 MEQ/L (99-109); CREATININE 0.4 MG/DL (0.6-1.3); GFR ESTIMATE (CALCULATED) > 59 mL/min/; GLUCOSE 258 mg/dL (70-99); MAGNESIUM 1.9 mg/dl (1.3-2.7); POTASSIUM 4.1 MEQ/L (3.7-5.4); SODIUM 140 MEQ/L (136-147); TOTAL BILIRUBIN 0.6 MG/DL (0.0-1.0); TOTAL PROTEIN 5.6 G/DL (6.4-8.3); UREA NITROGEN (BUN) 37 mg/dL (9-23)
[2018-03-24] VITALS (24 sets, daily range): BP systolic 126–182; BP diastolic 55–104
[2018-03-24 05:37] LABS: HEMATOCRIT 34.7 % (36.0-46.0); HEMOGLOBIN 11.2 G/DL (11.9-15.5); MCH 31.2 PG (29.0-34.0); MCHC 32.3 G/DL (30.0-36.0); MCV 96.7 FL (83-99); PLATELET COUNT 156 K/uL (156-360); RBC DIS.WIDTH-CV 14.4 % (11.8-14.6); RBC DIS.WIDTH-SD 50.6 % (39-53); RED BLOOD COUNT 3.59 M/uL (3.80-5.20); WHITE BLOOD COUNT 5.2 K/uL (4.1-10.2)
[2018-03-24 05:57] LABS: ALKALINE PHOSPHATASE 150 IU/L (3-129); ALT (GPT) 116 IU/L (3-49); AST (GOT) 30 IU/L (2-34); CHLORIDE 101 MEQ/L (99-109); CREATININE 0.4 MG/DL (0.6-1.3); GFR ESTIMATE (CALCULATED) > 59 mL/min/; GLUCOSE 222 mg/dL (70-99); PHOSPHORUS 3.8 mg/dL (2.5-4.9); POTASSIUM 4.4 MEQ/L (3.7-5.4); SODIUM 138 MEQ/L (136-147); TOTAL BILIRUBIN 0.6 MG/DL (0.0-1.0); TOTAL PROTEIN 5.6 G/DL (6.4-8.3); UREA NITROGEN (BUN) 37 mg/dL (9-23)
[2018-03-24 07:01] LABS: ABS NEUTROPHIL COUNT 4.5; ANISOCYTOSIS 1+; BAND NEUTROPHILS 6.1 % (0-8.0); EOSINOPHIL ABS CT 0; METAMYELOCYTES 1.7 %; MONOCYTES 3.5 % (0-9.0); MYELOCYTES 1.7 %; NUCLEATED RBC'S 0.9; PLAT.SUFFICIENCY ADEQUATE
[2018-03-25] VITALS (23 sets, daily range): BP systolic 121–166; BP diastolic 53–100
[2018-03-25 05:33] LABS: HEMATOCRIT 35.5 % (36.0-46.0); HEMOGLOBIN 11.5 G/DL (11.9-15.5); MCH 31.3 PG (29.0-34.0); MCHC 32.4 G/DL (30.0-36.0); MCV 96.5 FL (83-99); NRBC (%) 0.6 /100 WBC (0-0); PLATELET COUNT 186 K/uL (156-360); RBC DIS.WIDTH-CV 14.5 % (11.8-14.6); RBC DIS.WIDTH-SD 50.8 % (39-53); RED BLOOD COUNT 3.68 M/uL (3.80-5.20); WHITE BLOOD COUNT 5.4 K/uL (4.1-10.2)
[2018-03-25 06:11] LABS: CHLORIDE 102 MEQ/L (99-109); CREATININE 0.4 MG/DL (0.6-1.3); GFR ESTIMATE (CALCULATED) > 59 mL/min/; GLUCOSE 203 mg/dL (70-99); PHOSPHORUS 4.1 mg/dL (2.5-4.9); POTASSIUM 4.4 MEQ/L (3.7-5.4); SODIUM 141 MEQ/L (136-147); UREA NITROGEN (BUN) 34 mg/dL (9-23)
[2018-03-25 06:23] LABS: BASE EXCESS 4.3 mEq/L (-3 to +3); BICARBONATE 29.8 mEq/L (22-26); CARBOXY HGB 1.6 % (0-5); COMMENTS - BLOOD GASES C+; DEVICE VENT; FI02 55 %; METHEMOGLOBIN 1.3 % (0-1.5); MODE ACVC+; PCO2 47 mm Hg (35-45); PO2 90 mm Hg (80-100); SITE LR; pH 7.41 (7.35-7.45)
[2018-03-25 06:24] LABS: MECHANICAL RATE 18 resp/min; PEEP 10 CM/H20; TIDAL VOLUME 450 ML
[2018-03-25 06:32] LABS: BAND NEUTROPHILS 5.3 % (0-8.0); EOSINOPHIL ABS CT 0; METAMYELOCYTES 1.8 %; MONOCYTES 4.4 % (0-9.0); MYELOCYTES 6.1 %; NUCLEATED RBC'S 0.9; PLAT.SUFFICIENCY ADEQUATE; SEG.NEUTROPHILS 68.4 % (46.0-76.0); SMUDGE CELLS 4.4
[2018-03-25 13:49] LABS: INTER. NORMALIZED RATIO 1.1
[2018-03-25 13:52] LABS: PTT 21.2 SEC (25-37)
[2018-03-26] VITALS (24 sets, daily range): BP systolic 120–155; BP diastolic 51–77
[2018-03-26 05:41] LABS: CHLORIDE 101 MEQ/L (99-109); CREATININE 0.5 MG/DL (0.6-1.3); GFR ESTIMATE (CALCULATED) > 59 mL/min/; GLUCOSE 236 mg/dL (70-99); PHOSPHORUS 4.3 mg/dL (2.5-4.9); POTASSIUM 4.5 MEQ/L (3.7-5.4); SODIUM 139 MEQ/L (136-147); UREA NITROGEN (BUN) 36 mg/dL (9-23)
[2018-03-26 05:48] LABS: HEMATOCRIT 36.7 % (36.0-46.0); MCH 31.5 PG (29.0-34.0); MCHC 32.7 G/DL (30.0-36.0); MCV 96.3 FL (83-99); NRBC (%) 0.5 /100 WBC (0-0); RBC DIS.WIDTH-CV 14.6 % (11.8-14.6); RBC DIS.WIDTH-SD 51.3 % (39-53); RED BLOOD COUNT 3.81 M/uL (3.80-5.20); WHITE BLOOD COUNT 6.5 K/uL (4.1-10.2)
[2018-03-26 06:55] LABS: ABS NEUTROPHIL COUNT 5.2; ANISOCYTOSIS 1+; BAND NEUTROPHILS 10.4 % (0-8.0); EOSINOPHIL ABS CT 0; LYMPHOCYTES 4.3 % (15.0-45.0); METAMYELOCYTES 0.9 %; MICROCYTOSIS 1+; MYELOCYTES 7.8 %; PLATELET CLUMPS PRESENT - PLATELET COUNT APPEARS ADQ.; SEG.NEUTROPHILS 69.6 % (46.0-76.0)
[2018-03-27] VITALS (22 sets, daily range): BP systolic 109–157; BP diastolic 57–92
[2018-03-28] VITALS (22 sets, daily range): BP systolic 111–160; BP diastolic 56–84
[2018-03-28 05:21] LABS: MCH 30.2 PG (29.0-34.0); MCHC 31.6 G/DL (30.0-36.0); MCV 95.7 FL (83-99); PLATELET COUNT 226 K/uL (156-360); RBC DIS.WIDTH-CV 14.6 % (11.8-14.6); RBC DIS.WIDTH-SD 50.4 % (39-53); RED BLOOD COUNT 3.97 M/uL (3.80-5.20); WHITE BLOOD COUNT 9.5 K/uL (4.1-10.2)
[2018-03-28 05:34] LABS: CHLORIDE 97 MEQ/L (99-109); CREATININE 0.4 MG/DL (0.6-1.3); GFR ESTIMATE (CALCULATED) > 59 mL/min/; GLUCOSE 217 mg/dL (70-99); MAGNESIUM 2.1 mg/dl (1.3-2.7); PHOSPHORUS 4.4 mg/dL (2.5-4.9); POTASSIUM 4.7 MEQ/L (3.7-5.4); SODIUM 136 MEQ/L (136-147); UREA NITROGEN (BUN) 43 mg/dL (9-23)
[2018-03-28 05:50] LABS: ABS NEUTROPHIL COUNT 7.3; BAND NEUTROPHILS 9.8 % (0-8.0); EOSINOPHIL ABS CT 0; LYMPHOCYTES 5.3 % (15.0-45.0); METAMYELOCYTES 4.5 %; MONOCYTES 5.4 % (0-9.0); PLAT.SUFFICIENCY ADEQUATE
[2018-03-29] VITALS (19 sets, daily range): BP systolic 92–147; BP diastolic 44–95
[2018-03-30] VITALS (21 sets, daily range): BP systolic 108–161; BP diastolic 55–103
[2018-03-31] VITALS (19 sets, daily range): BP systolic 107–157; BP diastolic 57–91
[2018-03-31 16:05] LABS: CARBOXY HGB 1.6 % (0-5); PCO2 46 mm Hg (35-45); PO2 63 mm Hg (80-100); pH 7.48 (7.35-7.45)
[2018-03-31 16:06] LABS: BASE EXCESS 9.5 mEq/L (-3 to +3); BICARBONATE 34.3 mEq/L (22-26); COMMENTS - BLOOD GASES A+C+; DEVICE 980 PB VENT; FI02 65 %; INSPIRATION TIME 0.8 seconds; MECHANICAL RATE 22 resp/min; METHEMOGLOBIN 1.3 % (0-1.5); MODE SIMV VC+; PEEP 8 CM/H20; SITE LR; TIDAL VOLUME 450 ML; TOTAL RESP RATE 24 resp/min
[2018-04-01] VITALS (19 sets, daily range): BP systolic 106–141; BP diastolic 54–84
[2018-04-01 05:53] LABS: HEMATOCRIT 42.2 % (36.0-46.0); HEMOGLOBIN 13.4 G/DL (11.9-15.5); MCH 30.4 PG (29.0-34.0); MCHC 31.8 G/DL (30.0-36.0); MCV 95.7 FL (83-99); PLATELET COUNT 174 K/uL (156-360); RBC DIS.WIDTH-CV 14.6 % (11.8-14.6); RBC DIS.WIDTH-SD 51.3 % (39-53); RED BLOOD COUNT 4.41 M/uL (3.80-5.20); WHITE BLOOD COUNT 14.7 K/uL (4.1-10.2)
[2018-04-01 06:06] LABS: ABS NEUTROPHIL COUNT 12.8; ATYPICAL LYMPHOCYTE 1.7 %; BAND NEUTROPHILS 6.9 % (0-8.0); EOSINOPHIL ABS CT 0; GIANT PLATELETS 1+; LYMPHOCYTES 0.8 % (15.0-45.0); METAMYELOCYTES 0.9 %; MONOCYTES 5.2 % (0-9.0); MYELOCYTES 4.3 %; PLAT.SUFFICIENCY ADEQUATE; SEG.NEUTROPHILS 80.2 % (46.0-76.0); TOX.VACUOLIZATION 1+
[2018-04-01 06:26] LABS: ALBUMIN 3.1 G/DL (3.2-4.8); ALKALINE PHOSPHATASE 131 IU/L (3-129); ALT (GPT) 110 IU/L (3-49); AST (GOT) 18 IU/L (2-34); CHLORIDE 95 MEQ/L (99-109); CREATININE 0.4 MG/DL (0.6-1.3); GFR ESTIMATE (CALCULATED) > 59 mL/min/; GLUCOSE 220 mg/dL (70-99); MAGNESIUM 2.1 mg/dl (1.3-2.7); POTASSIUM 4.7 MEQ/L (3.7-5.4); SODIUM 136 MEQ/L (136-147); TOTAL BILIRUBIN 0.6 MG/DL (0.0-1.0); TOTAL PROTEIN 5.8 G/DL (6.4-8.3); UREA NITROGEN (BUN) 37 mg/dL (9-23)
[2018-04-02] VITALS (19 sets, daily range): BP systolic 111–149; BP diastolic 60–94
[2018-04-02 05:17] LABS: HEMATOCRIT 39.1 % (36.0-46.0); HEMOGLOBIN 12.7 G/DL (11.9-15.5); MCH 30.9 PG (29.0-34.0); MCHC 32.5 G/DL (30.0-36.0); MCV 95.1 FL (83-99); PLATELET COUNT 162 K/uL (156-360); RBC DIS.WIDTH-CV 14.7 % (11.8-14.6); RBC DIS.WIDTH-SD 51.3 % (39-53); RED BLOOD COUNT 4.11 M/uL (3.80-5.20); WHITE BLOOD COUNT 15.1 K/uL (4.1-10.2)
[2018-04-02 05:53] LABS: ALKALINE PHOSPHATASE 132 IU/L (3-129); ALT (GPT) 90 IU/L (3-49); AST (GOT) 14 IU/L (2-34); CHLORIDE 95 MEQ/L (99-109); CREATININE 0.3 MG/DL (0.6-1.3); GFR ESTIMATE (CALCULATED) > 59 mL/min/; GLUCOSE 249 mg/dL (70-99); PHOSPHORUS 4.3 mg/dL (2.5-4.9); POTASSIUM 4.5 MEQ/L (3.7-5.4); SODIUM 138 MEQ/L (136-147); TOTAL BILIRUBIN 0.6 MG/DL (0.0-1.0); TOTAL PROTEIN 5.8 G/DL (6.4-8.3); UREA NITROGEN (BUN) 38 mg/dL (9-23)
[2018-04-02 06:01] LABS: ABS NEUTROPHIL COUNT 13.7; ANISOCYTOSIS 1+; BAND NEUTROPHILS 6.1 % (0-8.0); EOSINOPHIL ABS CT 0; METAMYELOCYTES 1.7 %; MONOCYTES 4.3 % (0-9.0); MYELOCYTES 3.5 %; PLAT.SUFFICIENCY DECREASED; SEG.NEUTROPHILS 84.4 % (46.0-76.0); SPHEROCYTES 1+
[2018-04-02 18:55] LABS: HIGH-SENS C-REACTIVE PROTEIN 0.57 MG/DL (0.02-0.20)
[2018-04-03] VITALS (12 sets, daily range): BP systolic 109–138; BP diastolic 56–80
[2018-04-03 06:00] LABS: HEMATOCRIT 40.2 % (36.0-46.0); MCH 30.7 PG (29.0-34.0); MCHC 32.3 G/DL (30.0-36.0); PLATELET COUNT 137 K/uL (156-360); RBC DIS.WIDTH-CV 14.8 % (11.8-14.6); RBC DIS.WIDTH-SD 51.4 % (39-53); RED BLOOD COUNT 4.23 M/uL (3.80-5.20); WHITE BLOOD COUNT 15.5 K/uL (4.1-10.2)
[2018-04-03 06:42] LABS: ABS NEUTROPHIL COUNT 14.8; BAND NEUTROPHILS 2.6 % (0-8.0); EOSINOPHIL ABS CT 0; LYMPHOCYTES 1.7 % (15.0-45.0); METAMYELOCYTES 0.9 %; MONOCYTES 1.8 % (0-9.0); PLAT.SUFFICIENCY DECREASED
[2018-04-03 07:40] LABS: ALBUMIN 3.2 G/DL (3.2-4.8); ALKALINE PHOSPHATASE 132 IU/L (3-129); ALT (GPT) 83 IU/L (3-49); AST (GOT) 17 IU/L (2-34); CHLORIDE 93 MEQ/L (99-109); CREATININE 0.4 MG/DL (0.6-1.3); GFR ESTIMATE (CALCULATED) > 59 mL/min/; GLUCOSE 191 mg/dL (70-99); MAGNESIUM 2.1 mg/dl (1.3-2.7); PHOSPHORUS 4.6 mg/dL (2.5-4.9); POTASSIUM 4.7 MEQ/L (3.7-5.4); SODIUM 134 MEQ/L (136-147); TOTAL BILIRUBIN 0.6 MG/DL (0.0-1.0); TOTAL PROTEIN 5.9 G/DL (6.4-8.3); UREA NITROGEN (BUN) 38 mg/dL (9-23)
[2018-04-03] MEDS ORDERED: Tylenol GT (13:53)
[2018-04-03] MEDS ORDERED: LEVEMIR100 UNIT/2 SC (13:53)
[2018-04-03] MEDS ORDERED: DEXTROSE 50%50 ML IV (13:53)
[2018-04-03] MEDS ORDERED: POLYETHYLENE GL17 GM PO (13:53)
[2018-04-03] MEDS ORDERED: GLUCAGEN1 MG/1 ML IM/SC (13:53)
[2018-04-03] MEDS ORDERED: BUDESONIDE0.5 MG/2 M AEROSOL (13:53)
[2018-04-03] MEDS ORDERED: Dextrose 10% in Wate IV (13:53)
[2018-04-03] MEDS ORDERED: NOVOLOG 10100 UNITS/ SC (13:53)
[2018-04-03] MEDS ORDERED: SENNA8.8 MG/5 M GT (13:53)
[2018-04-03] MEDS ORDERED: CHLORHEXIDINE473 ML MM (13:53)
[2018-04-03] MEDS ORDERED: FLONASE16 G1 BOTH NARES (13:53)
[2018-04-03] MEDS ORDERED: DOXYCYCLINE HY100 M3 GT (13:53)
[2018-04-03] MEDS ORDERED: NATURAL BALANCE15 M1 BOTH EYES (13:53)
[2018-04-03] MEDS ORDERED: SOLU-MEDRO40 MG/1 ML IV (13:53)
[2018-04-03] MEDS ORDERED: CATHFLO ACT2 MG/2 ML INTRA-CATH (13:53)
[2018-04-03] MEDS ORDERED: ONDANSETRON4 MG/2 ML IV (13:53)
[2018-04-03] MEDS ORDERED: SORE THROAT SP177 M1 MM (13:53)
[2018-04-03] MEDS ORDERED: DUONEB 2.5-0.5 M3 ML AEROSOL (13:53)
[2018-04-03] MEDS ORDERED: METRONIDAZOLE500 MG GT (13:53)
[2018-04-03] MEDS ORDERED: QUETIAPINE FUMA25 MG GT (13:53)
[2018-04-03] MEDS ORDERED: fentaNYL Citrate IV (13:53)
== END 2018-04-03 14:33 | DRG 3 ==
LOC: EME → EDBD 21:05 → EDOF 22:40 → 4WEST 22:40 → ENRESERV 22:44 → 4WEST 02-24 00:59
PROVIDERS: Emergency Medicine Emergency Medical Services; Internal Medicine; Internal Medicine Critical Care Medicine; Obstetrics & Gynecology; Specialist; Surgery
PROC: 4A133B1 Monitoring of Arterial Pressure, Peripheral, Percutaneous Approach (ICD-10-PCS; principal; 2018-02-24)
PROC: 4A133J1 Monitoring of Arterial Pulse, Peripheral, Percutaneous Approach (ICD-10-PCS; principal; 2018-02-24)
PROC: 0BH17EZ Insertion of Endotracheal Airway into Trachea, Via Natural or Artificial Opening (ICD-10-PCS; principal; 2018-02-24)
PROC: 5A09357 Assistance with Respiratory Ventilation, Less than 24 Consecutive Hours, Continuous Positive Airway Pressure (ICD-10-PCS; principal; 2018-02-24)
PROC: 02HV33Z Insertion of Infusion Device into Superior Vena Cava, Percutaneous Approach (ICD-10-PCS; principal; 2018-02-24)
PROC: 03HY32Z Insertion of Monitoring Device into Upper Artery, Percutaneous Approach (ICD-10-PCS; principal; 2018-02-24)
PROC: 5A1955Z Respiratory Ventilation, Greater than 96 Consecutive Hours (ICD-10-PCS; principal; 2018-02-24)
PROC: 03HB33Z Insertion of Infusion Device into Right Radial Artery, Percutaneous Approach (ICD-10-PCS; principal; 2018-02-24)
PROC: 5A1945Z Respiratory Ventilation, 24-96 Consecutive Hours (ICD-10-PCS; 2018-03-15)
PROC: 30233R1 Transfusion of Nonautologous Platelets into Peripheral Vein, Percutaneous Approach (ICD-10-PCS; 2018-03-15)
PROC: 0B113F4 Bypass Trachea to Cutaneous with Tracheostomy Device, Percutaneous Approach (ICD-10-PCS; 2018-03-15)
PROC: 3E0G76Z Introduction of Nutritional Substance into Upper GI, Via Natural or Artificial Opening (ICD-10-PCS; 2018-03-15)
PROC: 0BJ08ZZ Inspection of Tracheobronchial Tree, Via Natural or Artificial Opening Endoscopic (ICD-10-PCS; 2018-03-19)
PROC: 0BW Respiratory System, Revision (ICD-10-PCS; 2018-03-20)
PROC: 0BH17EZ Insertion of Endotracheal Airway into Trachea, Via Natural or Artificial Opening (ICD-10-PCS; 2018-03-20)
PROC: 0BW Respiratory System, Revision (ICD-10-PCS; 2018-03-20)
PROC: 0B113F4 Bypass Trachea to Cutaneous with Tracheostomy Device, Percutaneous Approach (ICD-10-PCS; 2018-03-24)
PROC: 0BP1XFZ Removal of Tracheostomy Device from Trachea, External Approach (ICD-10-PCS; 2018-03-24)
DX: J96.21 Acute and chronic respiratory failure with hypoxia (principal); J15.212 Pneumonia due to Methicillin resistant Staphylococcus aureus; J44.1 Chronic obstructive pulmonary disease with (acute) exacerbation; E66.01 Morbid (severe) obesity due to excess calories; R09.02 Hypoxemia; E11.9 Type 2 diabetes mellitus without complications; E87.2 Acidosis; Z99.81 Dependence on supplemental oxygen; Z82.49 Family history of ischemic heart disease and other diseases of the circulatory system; Z68.44 Body mass index [BMI] 60.0-69.9, adult; Z59.0 Homelessness; R21 Rash and other nonspecific skin eruption; T41.295A Adverse effect of other general anesthetics, initial encounter; R00.1 Bradycardia, unspecified; Z91.19 Patient's noncompliance with other medical treatment and regimen; F17.210 Nicotine dependence, cigarettes, uncomplicated; Z43.0 Encounter for attention to tracheostomy; J96.22 Acute and chronic respiratory failure with hypercapnia; J44.0 Chronic obstructive pulmonary disease with (acute) lower respiratory infection; I50.30 Unspecified diastolic (congestive) heart failure; J98.11 Atelectasis; D72.829 Elevated white blood cell count, unspecified; D69.6 Thrombocytopenia, unspecified; G47.33 Obstructive sleep apnea (adult) (pediatric); I11.0 Hypertensive heart disease with heart failure; Z99.11 Dependence on respirator [ventilator] status; K02.9 Dental caries, unspecified; J93.9 Pneumothorax, unspecified; K59.00 Constipation, unspecified; I27.20 Pulmonary hypertension, unspecified; E87.6 Hypokalemia; D72.819 Decreased white blood cell count, unspecified; E87.4 Mixed disorder of acid-base balance; J95.03 Malfunction of tracheostomy stoma
CPT/HCPCS: 36600; 70486; 71045; 71275; 76937; 80048; 80048 91; 80053; 80202; 82803; 82948; 83010 90; 83036; 83615; 83735; 83880; 84100; 84145 90; 84443; 84478; 84484; 85007; 85025; 85027; 85060; 85379; 85610; 85730; 86022 90; 86141; 86850; 86900; 86901; 87040; 87070; 87077; 87147; 87186; 87205; 87254; 87641; 93005; 93306; 93970; 94002; 94003; 94640; 94640 76; 94667; 94668; 94760; 94799; 97530 GO; 97530 GP; 99202; 99281; 99285; C1751; C1753; C1769; J0330; J0456; J0461; J0696; J1100; J1120; J1170; J1644; J1815; J1940; J2020; J2250; J2405; J2543; J2704; J2920; J2930; J2997; J3010; J3370; J3475; J7030; J7040; J7050; J7643; J7644; P9035; P9047; S0028; S0074

== ENCOUNTER 2018-04-08 11:22 | Inpatient (IN) | payer OTHER ==
[2018-04-08] VITALS (7 sets, daily range): BP systolic 76–140; BP diastolic 52–123
[~2018-04-08] VITALS: Ht 165.1 cm; Wt 174.0 kg
[~2018-04-08 11:22] MED LIST changes: +BUDESONIDE0.5 MG/2 M AEROSOL; +CATHFLO ACT2 MG/2 ML INTRA-CATH; +CHLORHEXIDINE473 ML MM; +DEXTROSE 50%50 ML IV; +DOXYCYCLINE HY100 M3 GT; +DUONEB 2.5-0.5 M3 ML AEROSOL; +Dextrose 10% in Wate IV; +FLONASE16 G1 BOTH NARES; +GLUCAGEN1 MG/1 ML IM/SC; +LEVEMIR100 UNIT/2 SC; +METRONIDAZOLE500 MG GT; +NATURAL BALANCE15 M1 BOTH EYES; +NOVOLOG 10100 UNITS/ SC; +ONDANSETRON4 MG/2 ML IV; +POLYETHYLENE GL17 GM PO; +QUETIAPINE FUMA25 MG GT; +SENNA8.8 MG/5 M GT; +SOLU-MEDRO40 MG/1 ML IV; +SORE THROAT SP177 M1 MM; +Tylenol GT; +fentaNYL Citrate IV
[2018-04-08 12:41] LABS: HEMATOCRIT 46.8 % (36.0-46.0); MCH 32.1 PG (29.0-34.0); MCV 94.4 FL (83-99); RBC DIS.WIDTH-CV 15.2 % (11.8-14.6); RBC DIS.WIDTH-SD 52.5 % (39-53); RED BLOOD COUNT 4.96 M/uL (3.80-5.20); WHITE BLOOD COUNT 14.8 K/uL (4.1-10.2)
[2018-04-08 12:48] LABS: HEMOGLOBIN 15.9 G/DL (11.9-15.5)
[2018-04-08 12:49] LABS: CHLORIDE 91 mEq/L (99-109); POTASSIUM 5.8 mEq/L (3.7-5.4); SODIUM 127 mEq/L (136-147)
[2018-04-08 12:50] LABS: GLUCOSE 173 mg/dL (70-99)
[2018-04-08 12:54] LABS: GFR ESTIMATE (CALCULATED) > 59 mL/min/
[2018-04-08 12:55] LABS: UREA NITROGEN (BUN) 36 mg/dL (9-23)
[2018-04-08 13:27] LABS: ABS NEUTROPHIL COUNT 13.5; ANISOCYTOSIS 1+; EOSINOPHIL ABS CT 0; LYMPHOCYTES 2.6 % (15.0-45.0); MACROCYTES 1+; METAMYELOCYTES 3.5 %; MONOCYTES 1.7 % (0-9.0); MYELOCYTES 0.9 %; NUCLEATED RBC'S 0.9; PLAT.SUFFICIENCY DECREASED
[2018-04-08 13:32] LABS: BASE EXCESS -0.3 mEq/L (-3 to +3); BICARBONATE 25.4 mEq/L (22-26); CARBOXY HGB 2.3 % (0-5); COMMENTS - BLOOD GASES A+C+; DEVICE 840; FI02 100 %; MECHANICAL RATE 12 resp/min; METHEMOGLOBIN 1.2 % (0-1.5); MODE SIMV; PCO2 44 mm Hg (35-45); PO2 70 mm Hg (80-100); PRES. SUPPORT 15 CM/H2O; SITE LR; TIDAL VOLUME 500 ML; TOTAL RESP RATE 28 resp/min; pH 7.37 (7.35-7.45)
[2018-04-08 13:33] LABS: PEEP 5 CM/H20
[2018-04-08 13:34] LABS: BAND NEUTROPHILS 30.4 % (0-8.0); PLATELET COUNT 91 K/uL (156-360); SEG.NEUTROPHILS 60.9 % (46.0-76.0)
[2018-04-08] MEDS ORDERED: LEVOFLOXACIN750 MG GT (13:35)
[2018-04-08] MEDS ORDERED: HEPARIN SO5000 UNIT4 SC (13:36)
[2018-04-08] MEDS ORDERED: OXYCODONE HCL5 MG PO (13:37)
[2018-04-08] MEDS ORDERED: CARAFATE100 MG/ML GT (13:39)
[2018-04-08] MEDS ORDERED: ACETAMINOPHEN325 M1 PO (13:42)
[2018-04-08 13:54] LABS: TROP-I INTERPRETATION NEGATIVE; TROPONIN-I 0.04 ng/mL (0.0-0.30)
[2018-04-08] MEDS ORDERED: PREDNISONE20 MG PO (13:58)
[2018-04-08] MEDS ORDERED: POLYETHYLENE GL17 GM PO (14:00)
[2018-04-08] MEDS ORDERED: 24 HOUR ALLER15.8 ML BOTH NARES ×2 (14:02→14:03)
[2018-04-08] MEDS ORDERED: GAS RELIEF 8080 MG PO (14:08)
[2018-04-09] VITALS (36 sets, daily range): BP systolic 73–132; BP diastolic 50–106
[2018-04-09 02:53] LABS: COMMENTS - BLOOD GASES C+; DEVICE VENT; SITE LR
[2018-04-09 02:54] LABS: BASE EXCESS -3.9 mEq/L (-3 to +3); BICARBONATE 21.6 mEq/L (22-26); CARBOXY HGB 1.6 % (0-5); FI02 100 %; INSPIRATION TIME 0.85 seconds; MECHANICAL RATE 16 resp/min; METHEMOGLOBIN 1.4 % (0-1.5); MODE ACVC+; O2 SATURATION (CALCULATED) 96.3 % (95-99); PCO2 40 mm Hg (35-45); PEEP 12 CM/H20; PO2 74 mm Hg (80-100); TIDAL VOLUME 500 ML; TOTAL RESP RATE 20 resp/min; pH 7.34 (7.35-7.45)
[2018-04-09 03:41] LABS: CHLORIDE 92 mEq/L (99-109); POTASSIUM 5.7 mEq/L (3.7-5.4); SODIUM 126 mEq/L (136-147)
[2018-04-09 03:42] LABS: MAGNESIUM 2.1 mg/dL (1.3-2.7)
[2018-04-09 03:43] LABS: GLUCOSE 184 mg/dL (70-99)
[2018-04-09 03:46] LABS: PHOSPHORUS 5.3 mg/dL (2.5-4.9)
[2018-04-09 03:47] LABS: CREATININE 1.3 mg/dL (0.6-1.3); GFR ESTIMATE (CALCULATED) 46 mL/min/
[2018-04-09 03:48] LABS: UREA NITROGEN (BUN) 43 mg/dL (9-23)
[2018-04-09 04:43] LABS: HEMATOCRIT 40.7 % (36.0-46.0); HEMOGLOBIN 14.1 G/DL (11.9-15.5); MCH 32.6 PG (29.0-34.0); MCHC 34.6 G/DL (30.0-36.0); PLATELET COUNT 105 K/uL (156-360); RBC DIS.WIDTH-CV 15.6 % (11.8-14.6); RBC DIS.WIDTH-SD 53.4 % (39-53); RED BLOOD COUNT 4.33 M/uL (3.80-5.20); WHITE BLOOD COUNT 13.2 K/uL (4.1-10.2)
[2018-04-09 05:30] LABS: ABS NEUTROPHIL COUNT 11.6; ANISOCYTOSIS 1+; ATYPICAL LYMPHOCYTE 0.9 %; BASOPHILS 3.5 %; EOSINOPHIL ABS CT 0; LYMPHOCYTES 4.3 % (15.0-45.0); METAMYELOCYTES 0.9 %; MONOCYTES 2.6 % (0-9.0); PLAT.SUFFICIENCY DECREASED; POIKILOCYTOSIS 1+; SEG.NEUTROPHILS 79.1 % (46.0-76.0); SMUDGE CELLS 4.3
[2018-04-09 05:35] LABS: BAND NEUTROPHILS 8.7 % (0-8.0)
[2018-04-09 18:18] LABS: APPEARANCE TURBID ((CLEAR)); BILIRUBIN NEGATIVE; BLOOD MODERATE; COLOR YELLOW ((YELLOW)); GLUCOSE (STRIP) NEGATIVE; KETONES NEGATIVE; LEUKOCYTES MODERATE; NITRITE NEGATIVE; PROTEIN (STRIP) 100; SPECIFIC GRAVITY 1.033 (1.000-1.030); UROBILINOGEN 0.2 MG/DL (0.2-1.0)
[2018-04-09 19:10] LABS: EPITHELIAL CELLS 1+ /HPF
[2018-04-09 19:11] LABS: BACTERIA 3+ /HPF; MUCUS RARE /LPF; UCUL ADDED? YES
[2018-04-09 19:12] LABS: COARSE GRANULAR CASTS 0-5 /LPF
[2018-04-09 19:14] LABS: OTHER BUDDING YEAST 4+
[2018-04-10] VITALS (27 sets, daily range): BP systolic 80–113; BP diastolic 53–75
[2018-04-10 07:17] LABS: COMMENTS - BLOOD GASES A+C+; DEVICE 840; FI02 45 %; INSPIRATION TIME 0.85 seconds; MECHANICAL RATE 16 resp/min; MODE AC/VC+; SITE LR; TOTAL RESP RATE 23 resp/min
[2018-04-10 07:18] LABS: BASE EXCESS -6.9 mEq/L (-3 to +3); BICARBONATE 18.5 mEq/L (22-26); CARBOXY HGB 1.8 % (0-5); METHEMOGLOBIN 1.2 % (0-1.5); PCO2 36 mm Hg (35-45); PEEP 10 CM/H20; PO2 60 mm Hg (80-100); TIDAL VOLUME 500 ML; pH 7.32 (7.35-7.45)
[2018-04-10 07:18] LABS: HEMATOCRIT 35.1 % (36.0-46.0); MCHC 32.8 G/DL (30.0-36.0); MCV 94.6 FL (83-99); RBC DIS.WIDTH-CV 16.1 % (11.8-14.6); RBC DIS.WIDTH-SD 55.8 % (39-53); RED BLOOD COUNT 3.71 M/uL (3.80-5.20); WHITE BLOOD COUNT 6.9 K/uL (4.1-10.2)
[2018-04-10 07:21] LABS: HEMOGLOBIN 11.5 G/DL (11.9-15.5)
[2018-04-10 07:48] LABS: CHLORIDE 103 MEQ/L (99-109); CREATININE 1.3 MG/DL (0.6-1.3); GFR ESTIMATE (CALCULATED) 46 mL/min/; GLUCOSE 99 mg/dL (70-99); POTASSIUM 5.1 MEQ/L (3.7-5.4); SODIUM 132 MEQ/L (136-147); UREA NITROGEN (BUN) 45 mg/dL (9-23)
[2018-04-10 07:52] LABS: ABS NEUTROPHIL COUNT 6.2; BURR CELLS 1+; EOSINOPHIL ABS CT 0; METAMYELOCYTES 0.9 %; MONOCYTES 0.9 % (0-9.0); MYELOCYTES 1.8 %; OVALOCYTES 1+; PLAT.SUFFICIENCY DECREASED; SEG.NEUTROPHILS 59.6 % (46.0-76.0)
[2018-04-10 08:04] LABS: BAND NEUTROPHILS 29.8 % (0-8.0); PLATELET COUNT 70 K/uL (156-360)
[2018-04-11] VITALS (16 sets, daily range): BP systolic 76–123; BP diastolic 47–68
[2018-04-11 06:22] LABS: ALBUMIN 1.4 G/DL (3.2-4.8)
[2018-04-11 06:25] LABS: ALKALINE PHOSPHATASE 110 IU/L (3-129); ALT (GPT) 19 IU/L (3-49); AST (GOT) 13 IU/L (2-34); CHLORIDE 100 MEQ/L (99-109); CREATININE 1.3 MG/DL (0.6-1.3); GFR ESTIMATE (CALCULATED) 46 mL/min/; GLUCOSE 128 mg/dL (70-99); POTASSIUM 4.8 MEQ/L (3.7-5.4); SODIUM 131 MEQ/L (136-147); TOTAL BILIRUBIN 0.9 MG/DL (0.0-1.0); TOTAL PROTEIN 3.8 G/DL (6.4-8.3); UREA NITROGEN (BUN) 46 mg/dL (9-23); VANCOMYCIN, TROUGH 19.6 MCG/ML (10-20)
[2018-04-12 05:00] VITALS: BP 126/49
[2018-04-12 06:00] VITALS: BP 126/48
[2018-04-12 08:00] LABS: FACTOR Xa INHIBITION (LMWH) 0.09 IU/mL
[2018-04-13] VITALS: BP 113/43
[2018-04-13 01:00] VITALS: BP 102/43
[2018-04-13 02:00] VITALS: BP 97/42
[2018-04-13 05:19] LABS: HEMATOCRIT 29.4 % (36.0-46.0); HEMOGLOBIN 9.8 G/DL (11.9-15.5); MCH 31.3 PG (29.0-34.0); MCHC 33.3 G/DL (30.0-36.0); MCV 93.9 FL (83-99); RBC DIS.WIDTH-CV 16.6 % (11.8-14.6); RBC DIS.WIDTH-SD 56.6 % (39-53); RED BLOOD COUNT 3.13 M/uL (3.80-5.20); WHITE BLOOD COUNT 9.5 K/uL (4.1-10.2)
[2018-04-13 05:36] LABS: CHLORIDE 101 MEQ/L (99-109); GFR ESTIMATE (CALCULATED) > 59 mL/min/; GLUCOSE 97 mg/dL (70-99); POTASSIUM 2.9 MEQ/L (3.7-5.4); SODIUM 137 MEQ/L (136-147); UREA NITROGEN (BUN) 44 mg/dL (9-23)
[2018-04-13 05:46] LABS: ABS NEUTROPHIL COUNT 8.7; ANISOCYTOSIS 1+; BAND NEUTROPHILS 19.4 % (0-8.0); EOSINOPHIL ABS CT 0; HYPOCHROMASIA 1+; IMM.PLATELET FRACTION 7.1 (1-7); LYMPHOCYTES 7.1 % (15.0-45.0); MACROCYTES 1+; MYELOCYTES 1.8 %; PLAT.SUFFICIENCY VERY DECREASED; SEG.NEUTROPHILS 71.7 % (46.0-76.0); SPHEROCYTES 1+; TARGET CELLS 1+; TOX.VACUOLIZATION 1+; TOXIC GRANULATION 2+
[2018-04-13 05:50] LABS: PLATELET COUNT 47 K/uL (156-360)
[2018-04-13 10:21] LABS: DEVICE VENT; FI02 70 %; PEEP 8 CM/H20; SITE ARTLINE; TOTAL RESP RATE 20 resp/min
[2018-04-13 10:22] LABS: BASE EXCESS -3.2 mEq/L (-3 to +3); BICARBONATE 21.1 mEq/L (22-26); CARBOXY HGB 1.6 % (0-5); METHEMOGLOBIN 1.2 % (0-1.5); MODE ACVC+; O2 SATURATION (CALCULATED) 97.9 % (95-99); PCO2 34 mm Hg (35-45); PO2 87 mm Hg (80-100)
[2018-04-13 12:00] VITALS: BP 95/55
[2018-04-13 14:25] LABS: CHLORIDE 103 MEQ/L (99-109); GFR ESTIMATE (CALCULATED) > 59 mL/min/; GLUCOSE 101 mg/dL (70-99); MAGNESIUM 1.5 mg/dl (1.3-2.7); PHOSPHORUS 3.7 mg/dL (2.5-4.9); SODIUM 135 MEQ/L (136-147); UREA NITROGEN (BUN) 46 mg/dL (9-23)
[2018-04-13 14:31] LABS: POTASSIUM 3.6 MEQ/L (3.7-5.4)
[2018-04-14 01:00] VITALS: BP 110/39
[2018-04-14 05:26] LABS: HEMOGLOBIN 10.4 G/DL (11.9-15.5); MCH 31.5 PG (29.0-34.0); MCHC 33.5 G/DL (30.0-36.0); MCV 93.9 FL (83-99); RBC DIS.WIDTH-CV 16.9 % (11.8-14.6); RBC DIS.WIDTH-SD 57.4 % (39-53); WHITE BLOOD COUNT 10.6 K/uL (4.1-10.2)
[2018-04-14 05:50] LABS: ANISOCYTOSIS 2+; BURR CELLS 2+; EOSINOPHIL ABS CT 0; GIANT PLATELETS 1+; LYMPHOCYTES 4.3 % (15.0-45.0); MACROCYTES 2+; MONOCYTES 0.9 % (0-9.0); MYELOCYTES 0.9 %; PLAT.SUFFICIENCY VERY DECREASED; PLATELET CLUMPS PRESENT - PLATELET COUNT APPEARS ADQ.; PLATELET COUNT 49 K/uL (156-360); POIKILOCYTOSIS 3+; TARGET CELLS 2+; TOX.VACUOLIZATION 1+; TOXIC GRANULATION 3+
[2018-04-14 05:53] LABS: CHLORIDE 102 MEQ/L (99-109); GFR ESTIMATE (CALCULATED) > 59 mL/min/; GLUCOSE 127 mg/dL (70-99); POTASSIUM 3.3 MEQ/L (3.7-5.4); SODIUM 137 MEQ/L (136-147); UREA NITROGEN (BUN) 46 mg/dL (9-23)
[2018-04-14 05:56] LABS: SEG.NEUTROPHILS 93.9 % (46.0-76.0)
[2018-04-14 07:00] VITALS: BP 122/44
[2018-04-14 07:54] LABS: MAGNESIUM 1.5 mg/dl (1.3-2.7)
[2018-04-14 14:00] VITALS: BP 115/47
[2018-04-14 15:00] VITALS: BP 115/45
[2018-04-15] VITALS (12 sets, daily range): BP systolic 71–111; BP diastolic 35–68
[2018-04-15 06:21] LABS: HEMATOCRIT 29.7 % (36.0-46.0); HEMOGLOBIN 9.7 G/DL (11.9-15.5); MCH 30.4 PG (29.0-34.0); MCHC 32.7 G/DL (30.0-36.0); MCV 93.1 FL (83-99); RBC DIS.WIDTH-CV 17.1 % (11.8-14.6); RBC DIS.WIDTH-SD 57.8 % (39-53); RED BLOOD COUNT 3.19 M/uL (3.80-5.20); WHITE BLOOD COUNT 8.6 K/uL (4.1-10.2)
[2018-04-15 06:40] LABS: CHLORIDE 105 MEQ/L (99-109); CREATININE 0.9 MG/DL (0.6-1.3); GFR ESTIMATE (CALCULATED) > 59 mL/min/; GLUCOSE 121 mg/dL (70-99); POTASSIUM 3.4 MEQ/L (3.7-5.4); SODIUM 139 MEQ/L (136-147); UREA NITROGEN (BUN) 43 mg/dL (9-23)
[2018-04-15 07:15] LABS: ABS NEUTROPHIL COUNT 7.9; ANISOCYTOSIS 1+; BAND NEUTROPHILS 10.4 % (0-8.0); EOSINOPHIL ABS CT 0.1; EOSINOPHILS 0.9 % (0-5.0); IMM.PLATELET FRACTION 7.2 (1-7); LYMPHOCYTES 2.6 % (15.0-45.0); MACROCYTES 1+; METAMYELOCYTES 0.9 %; MONOCYTES 1.7 % (0-9.0); MYELOCYTES 1.7 %; PLAT.SUFFICIENCY DECREASED; PLATELET COUNT 40 K/uL (156-360); SEG.NEUTROPHILS 81.8 % (46.0-76.0); TOX.VACUOLIZATION 1+; TOXIC GRANULATION 2+
[2018-04-15 11:14] LABS: FACTOR Xa INHIBITION (LMWH) < 0.05 IU/mL
[2018-04-16] VITALS (21 sets, daily range): BP systolic 68–118; BP diastolic 34–91
[2018-04-16 09:36] LABS: ALBUMIN 2.1 G/DL (3.2-4.8); CHLORIDE 105 MEQ/L (99-109); CREATININE 0.8 MG/DL (0.6-1.3); GFR ESTIMATE (CALCULATED) > 59 mL/min/; GLUCOSE 109 mg/dL (70-99); POTASSIUM 3.9 MEQ/L (3.7-5.4); SODIUM 138 MEQ/L (136-147); UREA NITROGEN (BUN) 42 mg/dL (9-23)
[2018-04-16 09:48] LABS: TRIGLYCERIDES 91 MG/DL (Normal: <150)
[2018-04-16 09:50] LABS: MAGNESIUM 1.9 mg/dl (1.3-2.7)
[2018-04-17] VITALS (15 sets, daily range): BP systolic 87–105; BP diastolic 52–76
[2018-04-17 05:57] LABS: HEMATOCRIT 28.4 % (36.0-46.0); HEMOGLOBIN 9.2 G/DL (11.9-15.5); MCH 30.7 PG (29.0-34.0); MCHC 32.4 G/DL (30.0-36.0); MCV 94.7 FL (83-99); RBC DIS.WIDTH-CV 17.8 % (11.8-14.6); RBC DIS.WIDTH-SD 60.1 % (39-53); WHITE BLOOD COUNT 7.3 K/uL (4.1-10.2)
[2018-04-17 06:03] LABS: ALT (GPT) 12 IU/L (3-49); AST (GOT) 12 IU/L (2-34); CHLORIDE 108 MEQ/L (99-109); CREATININE 0.7 MG/DL (0.6-1.3); GFR ESTIMATE (CALCULATED) > 59 mL/min/; MAGNESIUM 1.7 mg/dl (1.3-2.7); PHOSPHORUS 2.2 mg/dL (2.5-4.9); POTASSIUM 3.3 MEQ/L (3.7-5.4); SODIUM 138 MEQ/L (136-147); TOTAL PROTEIN 4.1 G/DL (6.4-8.3); UREA NITROGEN (BUN) 36 mg/dL (9-23)
[2018-04-17 06:09] LABS: ALKALINE PHOSPHATASE 521 IU/L (3-129); GLUCOSE 179 mg/dL (70-99); TOTAL BILIRUBIN 2.8 MG/DL (0.0-1.0)
[2018-04-17 07:10] LABS: ABS NEUTROPHIL COUNT 5.9; ANISOCYTOSIS 3+; ATYPICAL LYMPHOCYTE 1.7 %; BAND NEUTROPHILS 10.3 % (0-8.0); BASOPHILS 0.9 %; EOSINOPHIL ABS CT 0.1; EOSINOPHILS 1.7 % (0-5.0); LYMPHOCYTES 6.9 % (15.0-45.0); MACROCYTES 2+; METAMYELOCYTES 3.4 %; MONOCYTES 0.9 % (0-9.0); MYELOCYTES 3.5 %; PLAT.SUFFICIENCY DECREASED; PLATELET COUNT 37 K/uL (156-360); POLYCHROMASIA 1+; SEG.NEUTROPHILS 70.7 % (46.0-76.0); SPHEROCYTES 1+
[2018-04-18] VITALS (24 sets, daily range): BP systolic 80–119; BP diastolic 49–76
[2018-04-18 06:06] LABS: CHLORIDE 109 MEQ/L (99-109); CREATININE 0.6 MG/DL (0.6-1.3); GFR ESTIMATE (CALCULATED) > 59 mL/min/; GLUCOSE 156 mg/dL (70-99); PHOSPHORUS 2.3 mg/dL (2.5-4.9); POTASSIUM 3.9 MEQ/L (3.7-5.4); SODIUM 139 MEQ/L (136-147); UREA NITROGEN (BUN) 38 mg/dL (9-23); VANCOMYCIN, TROUGH 15.8 MCG/ML (10-20)
[2018-04-19] VITALS (17 sets, daily range): BP systolic 88–127; BP diastolic 61–701
[2018-04-19 06:01] LABS: CHLORIDE 109 MEQ/L (99-109); CREATININE 0.5 MG/DL (0.6-1.3); GFR ESTIMATE (CALCULATED) > 59 mL/min/; GLUCOSE 153 mg/dL (70-99); MAGNESIUM 1.9 mg/dl (1.3-2.7); SODIUM 141 MEQ/L (136-147); UREA NITROGEN (BUN) 37 mg/dL (9-23)
[2018-04-19 06:22] LABS: PHOSPHORUS 3.3 mg/dL (2.5-4.9)
[2018-04-20] VITALS (23 sets, daily range): BP systolic 89–136; BP diastolic 48–95
[2018-04-20 05:46] LABS: CHLORIDE 112 MEQ/L (99-109); CREATININE 0.4 MG/DL (0.6-1.3); GFR ESTIMATE (CALCULATED) > 59 mL/min/; GLUCOSE 155 mg/dL (70-99); MAGNESIUM 2.1 mg/dl (1.3-2.7); PHOSPHORUS 3.3 mg/dL (2.5-4.9); POTASSIUM 4.2 MEQ/L (3.7-5.4); SODIUM 144 MEQ/L (136-147); UREA NITROGEN (BUN) 38 mg/dL (9-23)
[2018-04-21] VITALS (18 sets, daily range): BP systolic 100–168; BP diastolic 61–88
[2018-04-21 05:45] LABS: HEMATOCRIT 27.8 % (36.0-46.0); HEMOGLOBIN 8.3 G/DL (11.9-15.5); MCH 30.6 PG (29.0-34.0); MCHC 29.9 G/DL (30.0-36.0); NRBC (%) 2.4 /100 WBC (0-0); RBC DIS.WIDTH-SD 65.4 % (39-53); RED BLOOD COUNT 2.71 M/uL (3.80-5.20); WHITE BLOOD COUNT 10.9 K/uL (4.1-10.2)
[2018-04-21 05:46] LABS: MCV 102.6 FL (83-99); PLATELET COUNT 149 K/uL (156-360)
[2018-04-21 05:58] LABS: CHLORIDE 113 MEQ/L (99-109); CREATININE 0.4 MG/DL (0.6-1.3); GFR ESTIMATE (CALCULATED) > 59 mL/min/; GLUCOSE 144 mg/dL (70-99); MAGNESIUM 2.2 mg/dl (1.3-2.7); PHOSPHORUS 3.6 mg/dL (2.5-4.9); POTASSIUM 4.3 MEQ/L (3.7-5.4); SODIUM 145 MEQ/L (136-147); UREA NITROGEN (BUN) 39 mg/dL (9-23)
[2018-04-21 06:05] LABS: ABS NEUTROPHIL COUNT 8.4; ANISOCYTOSIS 1+; ATYPICAL LYMPHOCYTE 1.8 %; BAND NEUTROPHILS 9.7 % (0-8.0); EOSINOPHIL ABS CT 0; GIANT PLATELETS 2+; HYPERSEGMENTATION 1+; HYPOCHROMASIA 1+; METAMYELOCYTES 5.3 %; MONOCYTES 6.1 % (0-9.0); MYELOCYTES 2.6 %; NUCLEATED RBC'S 0.9; PLAT.SUFFICIENCY ADEQUATE; POLYCHROMASIA 1+; SEG.NEUTROPHILS 67.5 % (46.0-76.0); TOXIC GRANULATION 3+
[2018-04-22] VITALS (24 sets, daily range): BP systolic 105–159; BP diastolic 64–97
[2018-04-22 05:43] LABS: HEMATOCRIT 25.3 % (36.0-46.0); HEMOGLOBIN 7.7 G/DL (11.9-15.5); MCH 30.8 PG (29.0-34.0); MCHC 30.4 G/DL (30.0-36.0); MCV 101.2 FL (83-99); NRBC (%) 2.3 /100 WBC (0-0); RBC DIS.WIDTH-CV 17.7 % (11.8-14.6); RBC DIS.WIDTH-SD 63.1 % (39-53); WHITE BLOOD COUNT 11.3 K/uL (4.1-10.2)
[2018-04-22 05:49] LABS: PLATELET COUNT 200 K/uL (156-360)
[2018-04-22 06:29] LABS: CHLORIDE 112 MEQ/L (99-109); CREATININE 0.3 MG/DL (0.6-1.3); GFR ESTIMATE (CALCULATED) > 59 mL/min/; GLUCOSE 136 mg/dL (70-99); MAGNESIUM 2.2 mg/dl (1.3-2.7); PHOSPHORUS 3.8 mg/dL (2.5-4.9); POTASSIUM 4.6 MEQ/L (3.7-5.4); SODIUM 145 MEQ/L (136-147); UREA NITROGEN (BUN) 41 mg/dL (9-23)
[2018-04-22 06:50] LABS: ANISOCYTOSIS 1+; ATYPICAL LYMPHOCYTE 1.8 %; BAND NEUTROPHILS 4.4 % (0-8.0); EOSINOPHIL ABS CT 0; LYMPHOCYTES 13.3 % (15.0-45.0); METAMYELOCYTES 3.5 %; MICROCYTOSIS 1+; MONOCYTES 4.4 % (0-9.0); MYELOCYTES 6.2 %; NUCLEATED RBC'S 1.8; PLATELET CLUMPS PRESENT - PLATELET COUNT APPEARS ADQ.; POIKILOCYTOSIS 1+; SEG.NEUTROPHILS 66.4 % (46.0-76.0); TOXIC GRANULATION 3+
[2018-04-23] VITALS (17 sets, daily range): BP systolic 109–146; BP diastolic 61–99
[2018-04-23 06:12] LABS: HEMATOCRIT 23.2 % (36.0-46.0); HEMOGLOBIN 7.1 G/DL (11.9-15.5); MCH 31.3 PG (29.0-34.0); MCHC 30.6 G/DL (30.0-36.0); MCV 102.2 FL (83-99); NRBC (%) 3.2 /100 WBC (0-0); PLATELET COUNT 240 K/uL (156-360); RBC DIS.WIDTH-CV 17.8 % (11.8-14.6); RBC DIS.WIDTH-SD 64.5 % (39-53); RED BLOOD COUNT 2.27 M/uL (3.80-5.20); WHITE BLOOD COUNT 11.1 K/uL (4.1-10.2)
[2018-04-23 06:44] LABS: ALBUMIN 1.8 G/DL (3.2-4.8); ALKALINE PHOSPHATASE 513 IU/L (3-129); ALT (GPT) 9 IU/L (3-49); CHLORIDE 113 MEQ/L (99-109); CREATININE 0.3 MG/DL (0.6-1.3); DIRECT BILIRUBIN 0.4 mg/dL (0.0-0.3); GFR ESTIMATE (CALCULATED) > 59 mL/min/; GLUCOSE 144 mg/dL (70-99); MAGNESIUM 2.1 mg/dl (1.3-2.7); POTASSIUM 4.7 MEQ/L (3.7-5.4); PREALBUMIN 7.3 mg/dL (10-40); SODIUM 144 MEQ/L (136-147); TOTAL BILIRUBIN 0.9 MG/DL (0.0-1.0); TOTAL PROTEIN 4.7 G/DL (6.4-8.3); TRIGLYCERIDES 247 MG/DL (Normal: <150); UREA NITROGEN (BUN) 41 mg/dL (9-23)
[2018-04-23 06:45] LABS: AST (GOT) 20 IU/L (2-34)
[2018-04-23 06:48] LABS: ABS NEUTROPHIL COUNT 8.1; ANISOCYTOSIS 1+; ATYPICAL LYMPHOCYTE 0.9 %; BAND NEUTROPHILS 9.5 % (0-8.0); BASOPHILS 0.9 %; EOSINOPHIL ABS CT 0.1; EOSINOPHILS 0.9 % (0-5.0); LYMPHOCYTES 11.3 % (15.0-45.0); METAMYELOCYTES 6.1 %; MICROCYTOSIS 1+; MONOCYTES 2.6 % (0-9.0); MYELOCYTES 4.3 %; NUCLEATED RBC'S 2.6; OVALOCYTES 1+; PLAT.SUFFICIENCY ADEQUATE; POIKILOCYTOSIS 1+; SEG.NEUTROPHILS 63.5 % (46.0-76.0); SMUDGE CELLS 1.7
[2018-04-24] VITALS (17 sets, daily range): BP systolic 105–139; BP diastolic 68–86
[2018-04-24 06:09] LABS: CHLORIDE 113 MEQ/L (99-109); CREATININE 0.3 MG/DL (0.6-1.3); GFR ESTIMATE (CALCULATED) > 59 mL/min/; GLUCOSE 136 mg/dL (70-99); PHOSPHORUS 4.2 mg/dL (2.5-4.9); POTASSIUM 4.6 MEQ/L (3.7-5.4); SODIUM 144 MEQ/L (136-147); UREA NITROGEN (BUN) 37 mg/dL (9-23)
[2018-04-24 06:47] LABS: ABS NEUTROPHIL COUNT 8.8; ANISOCYTOSIS 1+; BAND NEUTROPHILS 8.8 % (0-8.0); BASOPHILS 0.9 %; EOSINOPHIL ABS CT 0.1; EOSINOPHILS 0.9 % (0-5.0); HEMATOCRIT 23.1 % (36.0-46.0); LYMPHOCYTES 9.6 % (15.0-45.0); MCH 30.4 PG (29.0-34.0); MCHC 29.9 G/DL (30.0-36.0); MCV 101.8 FL (83-99); METAMYELOCYTES 1.8 %; MICROCYTOSIS 1+; MONOCYTES 0.9 % (0-9.0); MYELOCYTES 1.7 %; NRBC (%) 3.4 /100 WBC (0-0); NUCLEATED RBC'S 2.6; OVALOCYTES 1+; PLAT.SUFFICIENCY ADEQUATE; PLATELET CLUMPS PRESENT - PLATELET COUNT APPEARS ADQ.; PLATELET COUNT UNABLE TO REPORT K/uL (156-360); POIKILOCYTOSIS 1+; POLYCHROMASIA 1+; RBC DIS.WIDTH-CV 18.2 % (11.8-14.6); RED BLOOD COUNT 2.27 M/uL (3.80-5.20); SEG.NEUTROPHILS 75.4 % (46.0-76.0); SMUDGE CELLS 4.4; WHITE BLOOD COUNT 10.4 K/uL (4.1-10.2)
[2018-04-24 06:51] LABS: HEMOGLOBIN 6.9 G/DL (11.9-15.5)
[2018-04-24 10:02] LABS: 24 HR VOLUME 2200 MLS; URINE UREA NITROGEN 15488 MG/24 HR
[2018-04-25] VITALS (12 sets, daily range): BP systolic 102–156; BP diastolic 54–105
[2018-04-25 05:50] LABS: CHLORIDE 114 MEQ/L (99-109); CREATININE 0.3 MG/DL (0.6-1.3); GFR ESTIMATE (CALCULATED) > 59 mL/min/; GLUCOSE 143 mg/dL (70-99); MAGNESIUM 1.9 mg/dl (1.3-2.7); PHOSPHORUS 4.2 mg/dL (2.5-4.9); POTASSIUM 4.6 MEQ/L (3.7-5.4); SODIUM 145 MEQ/L (136-147); UREA NITROGEN (BUN) 37 mg/dL (9-23)
[2018-04-25 07:15] LABS: HEMATOCRIT 24.1 % (36.0-46.0); HEMOGLOBIN 7.4 G/DL (11.9-15.5); MCH 30.5 PG (29.0-34.0); MCHC 30.7 G/DL (30.0-36.0); MCV 99.2 FL (83-99); NRBC (%) 3.6 /100 WBC (0-0); PLATELET COUNT 283 K/uL (156-360); RBC DIS.WIDTH-CV 19.6 % (11.8-14.6); RBC DIS.WIDTH-SD 68.2 % (39-53); RED BLOOD COUNT 2.43 M/uL (3.80-5.20); WHITE BLOOD COUNT 11.4 K/uL (4.1-10.2)
[2018-04-25 07:44] LABS: ABS NEUTROPHIL COUNT 8.4; ANISOCYTOSIS 1+; BAND NEUTROPHILS 7.9 % (0-8.0); EOSINOPHIL ABS CT 0; LYMPHOCYTES 11.4 % (15.0-45.0); METAMYELOCYTES 9.6 %; MICROCYTOSIS 1+; MONOCYTES 0.9 % (0-9.0); MYELOCYTES 4.4 %; NUCLEATED RBC'S 2.6; PLAT.SUFFICIENCY ADEQUATE; POLYCHROMASIA 2+; SEG.NEUTROPHILS 65.8 % (46.0-76.0)
[2018-04-25 11:57] LABS: STOOL OCCULT BLD 1ST SPECIMEN NEGATIVE
[2018-04-26] VITALS (21 sets, daily range): BP systolic 119–166; BP diastolic 60–90
[2018-04-26 05:24] LABS: HEMATOCRIT 23.3 % (36.0-46.0); HEMOGLOBIN 7.1 G/DL (11.9-15.5); MCHC 30.5 G/DL (30.0-36.0); MCV 98.3 FL (83-99); NRBC (%) 2.6 /100 WBC (0-0); PLATELET COUNT 294 K/uL (156-360); RBC DIS.WIDTH-CV 19.3 % (11.8-14.6); RBC DIS.WIDTH-SD 66.6 % (39-53); RED BLOOD COUNT 2.37 M/uL (3.80-5.20); WHITE BLOOD COUNT 12.1 K/uL (4.1-10.2)
[2018-04-26 06:21] LABS: CHLORIDE 111 MEQ/L (99-109); CREATININE 0.3 MG/DL (0.6-1.3); GFR ESTIMATE (CALCULATED) > 59 mL/min/; GLUCOSE 139 mg/dL (70-99); MAGNESIUM 1.8 mg/dl (1.3-2.7); PHOSPHORUS 3.8 mg/dL (2.5-4.9); POTASSIUM 4.4 MEQ/L (3.7-5.4); SODIUM 142 MEQ/L (136-147); UREA NITROGEN (BUN) 33 mg/dL (9-23)
[2018-04-27] VITALS (24 sets, daily range): BP systolic 102–176; BP diastolic 57–113
[2018-04-27 05:26] LABS: HEMATOCRIT 23.5 % (36.0-46.0); HEMOGLOBIN 7.2 G/DL (11.9-15.5); MCH 30.1 PG (29.0-34.0); MCHC 30.6 G/DL (30.0-36.0); MCV 98.3 FL (83-99); NRBC (%) 2.2 /100 WBC (0-0); PLATELET COUNT 274 K/uL (156-360); RBC DIS.WIDTH-CV 19.2 % (11.8-14.6); RBC DIS.WIDTH-SD 65.1 % (39-53); RED BLOOD COUNT 2.39 M/uL (3.80-5.20); WHITE BLOOD COUNT 13.7 K/uL (4.1-10.2)
[2018-04-27 06:37] LABS: ABS NEUTROPHIL COUNT 9.8; ANISOCYTOSIS 2+; BAND NEUTROPHILS 2.7 % (0-8.0); CHLORIDE 109 MEQ/L (99-109); CREATININE 0.3 MG/DL (0.6-1.3); EOSINOPHIL ABS CT 0; GFR ESTIMATE (CALCULATED) > 59 mL/min/; GLUCOSE 138 mg/dL (70-99); MACROCYTES 1+; MAGNESIUM 1.8 mg/dl (1.3-2.7); METAMYELOCYTES 3.6 %; MICROCYTOSIS 1+; MONOCYTES 5.3 % (0-9.0); MYELOCYTES 2.7 %; NUCLEATED RBC'S 3.6; PLAT.SUFFICIENCY ADEQUATE; POIKILOCYTOSIS 1+; POLYCHROMASIA 2+; POTASSIUM 4.3 MEQ/L (3.7-5.4); SEG.NEUTROPHILS 68.7 % (46.0-76.0); SODIUM 141 MEQ/L (136-147); UREA NITROGEN (BUN) 34 mg/dL (9-23)
[2018-04-28] VITALS (23 sets, daily range): BP systolic 99–155; BP diastolic 49–98
[2018-04-28 05:36] LABS: HEMATOCRIT 23.1 % (36.0-46.0); MCH 29.5 PG (29.0-34.0); MCHC 30.3 G/DL (30.0-36.0); MCV 97.5 FL (83-99); NRBC (%) 1.7 /100 WBC (0-0); PLATELET COUNT 316 K/uL (156-360); RBC DIS.WIDTH-CV 19.5 % (11.8-14.6); RBC DIS.WIDTH-SD 67.3 % (39-53); RED BLOOD COUNT 2.37 M/uL (3.80-5.20); WHITE BLOOD COUNT 14.8 K/uL (4.1-10.2)
[2018-04-28 05:56] LABS: CHLORIDE 107 MEQ/L (99-109); CREATININE 0.3 MG/DL (0.6-1.3); GFR ESTIMATE (CALCULATED) > 59 mL/min/; GLUCOSE 126 mg/dL (70-99); MAGNESIUM 1.9 mg/dl (1.3-2.7); PHOSPHORUS 4.2 mg/dL (2.5-4.9); POTASSIUM 4.3 MEQ/L (3.7-5.4); SODIUM 139 MEQ/L (136-147); UREA NITROGEN (BUN) 33 mg/dL (9-23)
[2018-04-28 06:23] LABS: ABS NEUTROPHIL COUNT 10.7; ANISOCYTOSIS 1+; BASOPHILS 0.9 %; EOSINOPHIL ABS CT 0; LYMPHOCYTES 17.4 % (15.0-45.0); METAMYELOCYTES 4.3 %; MONOCYTES 2.6 % (0-9.0); MYELOCYTES 2.6 %; NUCLEATED RBC'S 2.6; PLAT.SUFFICIENCY ADEQUATE; POLYCHROMASIA 1+; SEG.NEUTROPHILS 65.2 % (46.0-76.0); SMUDGE CELLS 2.6
[2018-04-29] VITALS (25 sets, daily range): BP systolic 102–169; BP diastolic 57–108
[2018-04-29 05:39] LABS: HEMATOCRIT 20.9 % (36.0-46.0); MCH 29.9 PG (29.0-34.0); MCHC 30.6 G/DL (30.0-36.0); MCV 97.7 FL (83-99); NRBC (%) 0.7 /100 WBC (0-0); PLATELET COUNT 299 K/uL (156-360); RBC DIS.WIDTH-CV 19.4 % (11.8-14.6); RBC DIS.WIDTH-SD 65.6 % (39-53); RED BLOOD COUNT 2.14 M/uL (3.80-5.20); WHITE BLOOD COUNT 14.7 K/uL (4.1-10.2)
[2018-04-29 05:40] LABS: HEMOGLOBIN 6.4 G/DL (11.9-15.5)
[2018-04-29 05:56] LABS: CHLORIDE 106 MEQ/L (99-109); CREATININE 0.3 MG/DL (0.6-1.3); GFR ESTIMATE (CALCULATED) > 59 mL/min/; GLUCOSE 177 mg/dL (70-99); PHOSPHORUS 4.6 mg/dL (2.5-4.9); POTASSIUM 4.3 MEQ/L (3.7-5.4); SODIUM 137 MEQ/L (136-147); UREA NITROGEN (BUN) 33 mg/dL (9-23)
[2018-04-29 06:12] LABS: ABS NEUTROPHIL COUNT 11.8; ANISOCYTOSIS 1+; BAND NEUTROPHILS 3.5 % (0-8.0); EOSINOPHIL ABS CT 0; LYMPHOCYTES 7.8 % (15.0-45.0); METAMYELOCYTES 5.2 %; MICROCYTOSIS 1+; MONOCYTES 1.8 % (0-9.0); MYELOCYTES 5.2 %; NUCLEATED RBC'S 2.6; PLAT.SUFFICIENCY ADEQUATE; POLYCHROMASIA 1+; SEG.NEUTROPHILS 76.5 % (46.0-76.0); SMUDGE CELLS 4.3
[2018-04-29 13:40] LABS: HEMATOCRIT 25.7 % (36.0-46.0); HEMOGLOBIN 7.9 G/DL (11.9-15.5); MCH 29.9 PG (29.0-34.0); MCHC 30.7 G/DL (30.0-36.0); MCV 97.3 FL (83-99); PLATELET COUNT 296 K/uL (156-360); RBC DIS.WIDTH-CV 18.3 % (11.8-14.6); RBC DIS.WIDTH-SD 60.9 % (39-53); WHITE BLOOD COUNT 16.7 K/uL (4.1-10.2)
[2018-04-29 13:45] LABS: RED BLOOD COUNT 2.64 M/uL (3.80-5.20)
[2018-04-29 22:18] LABS: ALBUMIN 1.8 G/DL (3.2-4.8); ALKALINE PHOSPHATASE 326 IU/L (3-129); ALT (GPT) 12 IU/L (3-49); AST (GOT) 15 IU/L (2-34); DIRECT BILIRUBIN 0.3 mg/dL (0.0-0.3); TOTAL BILIRUBIN 0.6 MG/DL (0.0-1.0); TOTAL PROTEIN 5.7 G/DL (6.4-8.3)
[2018-04-30] VITALS (21 sets, daily range): BP systolic 106–164; BP diastolic 62–87
[2018-04-30 04:52] LABS: HEMATOCRIT 25.9 % (36.0-46.0); HEMOGLOBIN 8.1 G/DL (11.9-15.5); MCH 30.8 PG (29.0-34.0); MCHC 31.3 G/DL (30.0-36.0); MCV 98.5 FL (83-99); NRBC (%) 2.9 /100 WBC (0-0); PLATELET COUNT 328 K/uL (156-360); RBC DIS.WIDTH-CV 18.9 % (11.8-14.6); RED BLOOD COUNT 2.63 M/uL (3.80-5.20); WHITE BLOOD COUNT 16.1 K/uL (4.1-10.2)
[2018-04-30 05:07] LABS: ALBUMIN 2.3 g/dL (3.2-4.8); CHLORIDE 105 mEq/L (99-109); POTASSIUM 4.1 mEq/L (3.7-5.4); SODIUM 139 mEq/L (136-147)
[2018-04-30 05:08] LABS: MAGNESIUM 1.9 mg/dL (1.3-2.7)
[2018-04-30 05:10] LABS: GLUCOSE 127 mg/dL (70-99); TOTAL PROTEIN 5.9 g/dL (6.4-8.3)
[2018-04-30 05:12] LABS: TOTAL BILIRUBIN 0.6 mg/dL (0.0-1.0)
[2018-04-30 05:13] LABS: ALKALINE PHOSPHATASE 579 IU/L (3-129)
[2018-04-30 05:14] LABS: CREATININE 0.5 mg/dL (0.6-1.3); GFR ESTIMATE (CALCULATED) > 59 mL/min/
[2018-04-30 05:15] LABS: AST (GOT) 21 IU/L (2-34); DIRECT BILIRUBIN 0.4 mg/dL (0.0-0.3); UREA NITROGEN (BUN) 31 mg/dL (9-23)
[2018-04-30 05:17] LABS: ALT (GPT) 15 IU/L (3-49)
[2018-04-30 05:21] LABS: PHOSPHORUS 3.3 mg/dL (2.5-4.9)
[2018-04-30 06:53] LABS: PREALBUMIN 10.3 mg/dL (10-40); TRIGLYCERIDES 316 MG/DL (Normal: <150)
[2018-04-30 07:09] LABS: ABS NEUTROPHIL COUNT 12.9; ANISOCYTOSIS 1+; BAND NEUTROPHILS 9.7 % (0-8.0); EOSINOPHIL ABS CT 0; METAMYELOCYTES 2.6 %; MONOCYTES 6.1 % (0-9.0); MYELOCYTES 4.4 %; NUCLEATED RBC'S 4.4; PLAT.SUFFICIENCY ADEQUATE; POLYCHROMASIA 1+; SEG.NEUTROPHILS 70.2 % (46.0-76.0)
[2018-05-01] VITALS (16 sets, daily range): BP systolic 117–152; BP diastolic 54–92
[2018-05-01 05:13] LABS: HEMATOCRIT 24.7 % (36.0-46.0); HEMOGLOBIN 7.5 G/DL (11.9-15.5); MCH 29.8 PG (29.0-34.0); MCHC 30.4 G/DL (30.0-36.0); NRBC (%) 2.7 /100 WBC (0-0); PLATELET COUNT 281 K/uL (156-360); RBC DIS.WIDTH-CV 19.7 % (11.8-14.6); RBC DIS.WIDTH-SD 65.5 % (39-53); RED BLOOD COUNT 2.52 M/uL (3.80-5.20); WHITE BLOOD COUNT 15.3 K/uL (4.1-10.2)
[2018-05-01 05:38] LABS: CHLORIDE 105 MEQ/L (99-109); CREATININE 0.3 MG/DL (0.6-1.3); GFR ESTIMATE (CALCULATED) > 59 mL/min/; GLUCOSE 136 mg/dL (70-99); PHOSPHORUS 3.2 mg/dL (2.5-4.9); POTASSIUM 3.9 MEQ/L (3.7-5.4); SODIUM 139 MEQ/L (136-147); UREA NITROGEN (BUN) 31 mg/dL (9-23)
[2018-05-01 05:47] LABS: ABS NEUTROPHIL COUNT 11.4; ACANTHOCYTES 1+; ANISOCYTOSIS 1+; BAND NEUTROPHILS 5.2 % (0-8.0); EOSINOPHIL ABS CT 0; LYMPHOCYTES 16.5 % (15.0-45.0); MONOCYTES 3.5 % (0-9.0); MYELOCYTES 5.2 %; NUCLEATED RBC'S 4.3; PLAT.SUFFICIENCY ADEQUATE; POIKILOCYTOSIS 1+; POLYCHROMASIA 2+; SEG.NEUTROPHILS 69.6 % (46.0-76.0)
[2018-05-02] VITALS (23 sets, daily range): BP systolic 109–146; BP diastolic 52–91
[2018-05-02 05:26] LABS: HEMATOCRIT 25.5 % (36.0-46.0); HEMOGLOBIN 7.8 G/DL (11.9-15.5); MCHC 30.6 G/DL (30.0-36.0); MCV 98.1 FL (83-99); NRBC (%) 1.6 /100 WBC (0-0); PLATELET COUNT 263 K/uL (156-360); RBC DIS.WIDTH-CV 19.9 % (11.8-14.6); WHITE BLOOD COUNT 16.4 K/uL (4.1-10.2)
[2018-05-02 05:37] LABS: CHLORIDE 101 MEQ/L (99-109); MAGNESIUM 1.8 mg/dl (1.3-2.7); POTASSIUM 4.1 MEQ/L (3.7-5.4); SODIUM 136 MEQ/L (136-147)
[2018-05-02 05:43] LABS: CREATININE 0.3 MG/DL (0.6-1.3); GFR ESTIMATE (CALCULATED) > 59 mL/min/; GLUCOSE 137 mg/dL (70-99); PHOSPHORUS 2.8 mg/dL (2.5-4.9); UREA NITROGEN (BUN) 29 mg/dL (9-23)
[2018-05-02 06:27] LABS: ANISOCYTOSIS 1+; ATYPICAL LYMPHOCYTE 1.7 %; BAND NEUTROPHILS 6.1 % (0-8.0); EOSINOPHIL ABS CT 0; GIANT PLATELETS 1+; LYMPHOCYTES 8.7 % (15.0-45.0); METAMYELOCYTES 0.9 %; MICROCYTOSIS 1+; MONOCYTES 0.9 % (0-9.0); MYELOCYTES 2.6 %; NUCLEATED RBC'S 3.5; PLAT.SUFFICIENCY ADEQUATE; POLYCHROMASIA 3+; SEG.NEUTROPHILS 79.1 % (46.0-76.0); TOX.VACUOLIZATION 1+; TOXIC GRANULATION 2+
[2018-05-03] VITALS (12 sets, daily range): BP systolic 98–129; BP diastolic 49–79
[2018-05-03 04:59] LABS: HEMATOCRIT 25.7 % (36.0-46.0); HEMOGLOBIN 7.9 G/DL (11.9-15.5); MCHC 30.7 G/DL (30.0-36.0); MCV 97.7 FL (83-99); NRBC (%) 0.6 /100 WBC (0-0); PLATELET COUNT 268 K/uL (156-360); RBC DIS.WIDTH-CV 19.5 % (11.8-14.6); RBC DIS.WIDTH-SD 65.9 % (39-53); RED BLOOD COUNT 2.63 M/uL (3.80-5.20); WHITE BLOOD COUNT 14.8 K/uL (4.1-10.2)
[2018-05-03 05:23] LABS: CHLORIDE 98 MEQ/L (99-109); CREATININE 0.3 MG/DL (0.6-1.3); GFR ESTIMATE (CALCULATED) > 59 mL/min/; GLUCOSE 158 mg/dL (70-99); MAGNESIUM 1.8 mg/dl (1.3-2.7); PHOSPHORUS 3.3 mg/dL (2.5-4.9); POTASSIUM 4.1 MEQ/L (3.7-5.4); SODIUM 133 MEQ/L (136-147); UREA NITROGEN (BUN) 27 mg/dL (9-23)
[2018-05-03 07:10] LABS: ABS NEUTROPHIL COUNT 11.6; ANISOCYTOSIS 1+; ATYPICAL LYMPHOCYTE 4.3 %; BAND NEUTROPHILS 3.4 % (0-8.0); EOSINOPHIL ABS CT 0; GIANT PLATELETS 1+; LYMPHOCYTES 13.8 % (15.0-45.0); METAMYELOCYTES 0.9 %; MONOCYTES 1.7 % (0-9.0); MYELOCYTES 0.9 %; NUCLEATED RBC'S 1.7; PLATELET CLUMPS PRESENT - PLATELET COUNT APPEARS ADQ.; POLYCHROMASIA 2+; TOX.VACUOLIZATION 2+; TOXIC GRANULATION 2+
== END 2018-05-03 14:20 | disposition designated cancer center or children's hospital (05) | DRG 326 ==
LOC: EME → EDBD 11:22 → EDOF 15:54 → 4WEST 15:54 → ENRESERV 15:58 → 4WEST 16:55
PROVIDERS: Emergency Medicine; Internal Medicine Critical Care Medicine; Physician Assistant; Specialist; Surgery
DX: K94.23 Gastrostomy malfunction (principal); A41.89 Other specified sepsis; J96.21 Acute and chronic respiratory failure with hypoxia; Z99.11 Dependence on respirator [ventilator] status; J95.851 Ventilator associated pneumonia; N17.9 Acute kidney failure, unspecified; R65.21 Severe sepsis with septic shock; K65.9 Peritonitis, unspecified; B37.89 Other sites of candidiasis; T80.818A Extravasation of other vesicant agent, initial encounter; E83.51 Hypocalcemia; E87.1 Hypo-osmolality and hyponatremia; E87.2 Acidosis; E87.5 Hyperkalemia; D69.6 Thrombocytopenia, unspecified; E43 Unspecified severe protein-calorie malnutrition; L89.153 Pressure ulcer of sacral region, stage 3; I11.0 Hypertensive heart disease with heart failure; I50.9 Heart failure, unspecified; J44.9 Chronic obstructive pulmonary disease, unspecified; E66.01 Morbid (severe) obesity due to excess calories; Z68.43 Body mass index [BMI] 50.0-59.9, adult; Z93.0 Tracheostomy status; B96.89 Other specified bacterial agents as the cause of diseases classified elsewhere; B95.62 Methicillin resistant Staphylococcus aureus infection as the cause of diseases classified elsewhere; B37.49 Other urogenital candidiasis; R23.8 Other skin changes; D64.9 Anemia, unspecified; I25.10 Atherosclerotic heart disease of native coronary artery without angina pectoris; G47.33 Obstructive sleep apnea (adult) (pediatric); I87.8 Other specified disorders of veins; E11.9 Type 2 diabetes mellitus without complications; Y84.8 Other medical procedures as the cause of abnormal reaction of the patient, or of later complication, without mention of misadventure at the time of the procedure; Z87.891 Personal history of nicotine dependence
CPT/HCPCS: 36600; 71045; 74018; 74160; 74176; 76937; 80048; 80048 91; 80053; 80076; 80202; 81003; 81050; 82040; 82248; 82272; 82330; 82533 91; 82570; 82803; 82945; 82948; 83605; 83735; 83880; 84100; 84134; 84145 90; 84300; 84478; 84484; 84540; 84630 90; 85025; 85027; 85520; 86850; 86900; 86901; 86920; 87040; 87070; 87075; 87077; 87081; 87086; 87102; 87106; 87147; 87186; 87205; 87641; 87801; 88304; 92610 GN; 93005; 93970; 94002; 94003; 94640; 94640 76; 94760; 97530 GP; 99202; 99281; 99285; A6212; B4087; C1751; C1752; C1753; C1894; C9113; J0131; J0456; J0690; J0692; J1100; J1450; J1644; J1650; J1720; J1815; J1940; J2185; J2248; J2250; J2405; J2997; J3010; J3370; J3475; J3480; J7030; J7040; J7042; J7050; J7070; J7120; P9016; P9045; P9047; S0028; S0030

== ENCOUNTER 2018-05-05 11:46 | Emergency (ER) | payer OTHER ==
[~2018-05-05] VITALS: Ht 160 cm; Wt 181.0 kg
[~2018-05-05 11:46] MED LIST changes: +24 HOUR ALLER15.8 ML BOTH NARES; +ACETAMINOPHEN325 M1 PO; +CARAFATE100 MG/ML GT; +GAS RELIEF 8080 MG PO; +HEPARIN SO5000 UNIT4 SC; +LEVOFLOXACIN750 MG GT; +OXYCODONE HCL5 MG PO
[2018-05-05] MEDS ORDERED: OXAYDO5 MG PO (15:01)
[2018-05-05] MEDS ORDERED: ZOFRAN0.8 MG/1 M PO (15:04)
[2018-05-05 18:09] VITALS: BP 106/61
== END 2018-05-05 18:10 ==
LOC: EME 11:46
DX: T81.89XA Other complications of procedures, not elsewhere classified, initial encounter (principal); Z93.1 Gastrostomy status; J44.9 Chronic obstructive pulmonary disease, unspecified; I50.9 Heart failure, unspecified; Z87.891 Personal history of nicotine dependence; Z93.0 Tracheostomy status; Y83.8 Other surgical procedures as the cause of abnormal reaction of the patient, or of later complication, without mention of misadventure at the time of the procedure
CPT/HCPCS: 94002; 99281; 99284

== ENCOUNTER 2018-05-13 02:48 | Inpatient (IN) | payer OTHER ==
[~2018-05-13] VITALS: Ht 154.9 cm; Wt 182.0 kg
[2018-05-13] VITALS (25 sets, daily range): BP systolic 74–107; BP diastolic 39–73
[~2018-05-13 02:48] MED LIST changes: +ACETAMINOPHEN325 M1 GT; -ACETAMINOPHEN325 M1 PO; +GAS RELIEF 8080 MG GT; -GAS RELIEF 8080 MG PO; +OXAYDO5 MG PO; +POLYETHYLENE GL17 GM GT; +ZOFRAN0.8 MG/1 M PO
[2018-05-13 03:05] LABS: BICARBONATE 29.8 mEq/L (22-26); CARBOXY HGB 2.9 % (0-5); COMMENTS - BLOOD GASES C+A+; DEVICE VENT; FI02 40 %; MECHANICAL RATE 12 resp/min; MODE AC; PCO2 40 mm Hg (35-45); PEEP 7 CM/H20; PO2 55 mm Hg (80-100); SITE RR; TIDAL VOLUME 500 ML; TOTAL RESP RATE 34 resp/min; pH 7.48 (7.35-7.45)
[2018-05-13 03:06] LABS: BASE EXCESS 5.8 mEq/L (-3 to +3)
[2018-05-13 03:39] LABS: INTER. NORMALIZED RATIO 1.5
[2018-05-13 03:40] LABS: ALBUMIN 2.2 g/dL (3.2-4.8)
[2018-05-13 03:41] LABS: CHLORIDE 100 mEq/L (99-109); POTASSIUM 3.8 mEq/L (3.7-5.4); SODIUM 138 mEq/L (136-147)
[2018-05-13 03:42] LABS: GLUCOSE 150 mg/dL (70-99); PTT 33.8 SEC (25-37)
[2018-05-13 03:44] LABS: TOTAL BILIRUBIN 0.9 mg/dL (0.0-1.0)
[2018-05-13 03:46] LABS: ALKALINE PHOSPHATASE 706 IU/L (3-129); CREATININE 0.6 mg/dL (0.6-1.3); GFR ESTIMATE (CALCULATED) > 59 mL/min/
[2018-05-13 03:47] LABS: UREA NITROGEN (BUN) 30 mg/dL (9-23)
[2018-05-13 03:48] LABS: AST (GOT) 44 IU/L (2-34)
[2018-05-13 03:49] LABS: ALT (GPT) 38 IU/L (3-49); HEMATOCRIT 20.2 % (36.0-46.0); MCHC 30.7 G/DL (30.0-36.0); MCV 97.6 FL (83-99); NRBC (%) 0.9 /100 WBC (0-0); PLATELET COUNT 257 K/uL (156-360); RBC DIS.WIDTH-CV 19.1 % (11.8-14.6); RBC DIS.WIDTH-SD 67.2 % (39-53); WHITE BLOOD COUNT 12.8 K/uL (4.1-10.2)
[2018-05-13 03:50] LABS: HEMOGLOBIN 6.2 G/DL (11.9-15.5); RED BLOOD COUNT 2.07 M/uL (3.80-5.20)
[2018-05-13 03:52] LABS: TROP-I INTERPRETATION NEGATIVE; TROPONIN-I 0.02 ng/mL (0.0-0.30)
[2018-05-13 04:16] LABS: LIPASE 17 U/L (1.0-51.0)
[2018-05-13 05:49] LABS: ABS NEUTROPHIL COUNT 10.3; BAND NEUTROPHILS 6.1 % (0-8.0); EOSINOPHIL ABS CT 0; LYMPHOCYTES 14.9 % (15.0-45.0); METAMYELOCYTES 0.9 %; MONOCYTES 2.6 % (0-9.0); MYELOCYTES 0.9 %; NUCLEATED RBC'S 0.9; PLAT.SUFFICIENCY ADEQUATE; SEG.NEUTROPHILS 74.6 % (46.0-76.0)
[2018-05-13 07:04] LABS: APPEARANCE CLOUDY ((CLEAR)); BILIRUBIN NEGATIVE; BLOOD MODERATE; COLOR AMBER ((YELLOW)); GLUCOSE (STRIP) NEGATIVE; KETONES NEGATIVE; LEUKOCYTES LARGE; NITRITE POSITIVE; PROTEIN (STRIP) 30; SPECIFIC GRAVITY 1.015 (1.000-1.030)
[2018-05-13 07:50] LABS: AMORPHOUS URATES CRYSTALS 1+; BACTERIA NONE SEEN /HPF; EPITHELIAL CELLS 1+ /HPF; MUCUS NONE SEEN /LPF; RED BLOOD CELLS RARE /HPF (0-5); UCUL ADDED? YES
[2018-05-13 21:15] LABS: HEMATOCRIT 26.2 % (36.0-46.0)
[2018-05-13 22:19] LABS: HEMOGLOBIN 8.3 G/DL (11.9-15.5); MCV 93.6 FL (83-99)
[2018-05-14] VITALS (25 sets, daily range): BP systolic 84–127; BP diastolic 47–100
[2018-05-14 06:18] LABS: HEMATOCRIT 20.7 % (36.0-46.0); MCHC 31.4 G/DL (30.0-36.0); MCV 95.4 FL (83-99); NRBC (%) 0.3 /100 WBC (0-0); PLATELET COUNT 244 K/uL (156-360); RBC DIS.WIDTH-CV 19.2 % (11.8-14.6); RBC DIS.WIDTH-SD 64.4 % (39-53); RED BLOOD COUNT 2.17 M/uL (3.80-5.20)
[2018-05-14 06:20] LABS: HEMOGLOBIN 6.5 G/DL (11.9-15.5)
[2018-05-14 06:41] LABS: CHLORIDE 101 MEQ/L (99-109); CREATININE 0.4 MG/DL (0.6-1.3); GFR ESTIMATE (CALCULATED) > 59 mL/min/; GLUCOSE 83 mg/dL (70-99); MAGNESIUM 1.8 mg/dl (1.3-2.7); PHOSPHORUS 4.4 mg/dL (2.5-4.9); POTASSIUM 3.3 MEQ/L (3.7-5.4); SODIUM 138 MEQ/L (136-147); UREA NITROGEN (BUN) 28 mg/dL (9-23)
[2018-05-14 12:12] LABS: HEMATOCRIT 30.8 % (36.0-46.0); HEMOGLOBIN 9.7 G/DL (11.9-15.5); MCH 29.4 PG (29.0-34.0); MCHC 31.5 G/DL (30.0-36.0); MCV 93.3 FL (83-99); NRBC (%) 0.4 /100 WBC (0-0); PLATELET COUNT 247 K/uL (156-360); RBC DIS.WIDTH-CV 18.5 % (11.8-14.6); RBC DIS.WIDTH-SD 61.6 % (39-53)
[2018-05-14] MEDS ORDERED: CARAFATE100 MG/ML GT (14:01)
[2018-05-14] MEDS ORDERED: LASIX40 MG GT ×2 (14:03→14:04)
[2018-05-14] MEDS ORDERED: NOVOLOG MI100 UNIT/2 SC (14:07)
[2018-05-14] MEDS ORDERED: ZOFRAN4 MG/2 ML IV (14:15)
[2018-05-14] MEDS ORDERED: ROXICODONE5 MG GT (14:17)
[2018-05-14 22:08] LABS: APPEARANCE TURBID ((CLEAR)); BILIRUBIN NEGATIVE; BLOOD LARGE; COLOR AMBER ((YELLOW)); GLUCOSE (STRIP) NEGATIVE; KETONES 5; LEUKOCYTES MODERATE; NITRITE NEGATIVE; PROTEIN (STRIP) 100; SPECIFIC GRAVITY 1.018 (1.000-1.030); UROBILINOGEN 0.2 MG/DL (0.2-1.0)
[2018-05-14 22:33] LABS: BACTERIA 4+ /HPF; EPITHELIAL CELLS 4+ /HPF; MUCUS NONE SEEN /LPF; RED BLOOD CELLS 20-30 /HPF (0-5); UCUL ADDED? YES
[2018-05-14 22:35] LABS: FINE GRANULAR CASTS 0-5 /LPF
[2018-05-15] VITALS (20 sets, daily range): BP systolic 89–124; BP diastolic 50–73
[2018-05-15 05:27] LABS: HEMATOCRIT 27.1 % (36.0-46.0); HEMOGLOBIN 8.6 G/DL (11.9-15.5); MCH 29.5 PG (29.0-34.0); MCHC 31.7 G/DL (30.0-36.0); MCV 92.8 FL (83-99); NRBC (%) 0.5 /100 WBC (0-0); PLATELET COUNT 221 K/uL (156-360); RBC DIS.WIDTH-CV 18.6 % (11.8-14.6); RBC DIS.WIDTH-SD 62.3 % (39-53); RED BLOOD COUNT 2.92 M/uL (3.80-5.20); WHITE BLOOD COUNT 8.7 K/uL (4.1-10.2)
[2018-05-15 06:01] LABS: CHLORIDE 102 MEQ/L (99-109); CREATININE 0.4 MG/DL (0.6-1.3); GFR ESTIMATE (CALCULATED) > 59 mL/min/; GLUCOSE 84 mg/dL (70-99); MAGNESIUM 1.7 mg/dl (1.3-2.7); PHOSPHORUS 4.7 mg/dL (2.5-4.9); POTASSIUM 2.8 MEQ/L (3.7-5.4); SODIUM 137 MEQ/L (136-147); UREA NITROGEN (BUN) 24 mg/dL (9-23); VANCOMYCIN, TROUGH 26.2 MCG/ML (10-20)
[2018-05-15 12:17] LABS: C DIFF TOXIN NEGATIVE (NEGATIVE)
[2018-05-16] VITALS (21 sets, daily range): BP systolic 70–124; BP diastolic 46–75
[2018-05-16 09:00] LABS: HEMATOCRIT 28.1 % (36.0-46.0); HEMOGLOBIN 8.6 G/DL (11.9-15.5); MCH 29.1 PG (29.0-34.0); MCHC 30.6 G/DL (30.0-36.0); MCV 94.9 FL (83-99); NRBC (%) 0.3 /100 WBC (0-0); PLATELET COUNT 237 K/uL (156-360); RBC DIS.WIDTH-CV 18.6 % (11.8-14.6); RBC DIS.WIDTH-SD 63.6 % (39-53); RED BLOOD COUNT 2.96 M/uL (3.80-5.20); WHITE BLOOD COUNT 9.9 K/uL (4.1-10.2)
[2018-05-16 10:04] LABS: CHLORIDE 102 MEQ/L (99-109); CREATININE 0.4 MG/DL (0.6-1.3); GFR ESTIMATE (CALCULATED) > 59 mL/min/; MAGNESIUM 1.6 mg/dl (1.3-2.7); PHOSPHORUS 4.4 mg/dL (2.5-4.9); SODIUM 136 MEQ/L (136-147); UREA NITROGEN (BUN) 19 mg/dL (9-23); VANCOMYCIN, TROUGH 21.8 MCG/ML (10-20)
[2018-05-16 10:09] LABS: GLUCOSE 115 mg/dL (70-99); POTASSIUM 3.8 MEQ/L (3.7-5.4)
[2018-05-17] VITALS (18 sets, daily range): BP systolic 85–115; BP diastolic 44–72
[2018-05-17 05:45] LABS: HEMATOCRIT 26.4 % (36.0-46.0); HEMOGLOBIN 8.2 G/DL (11.9-15.5); MCH 29.6 PG (29.0-34.0); MCHC 31.1 G/DL (30.0-36.0); MCV 95.3 FL (83-99); PLATELET COUNT 240 K/uL (156-360); RBC DIS.WIDTH-CV 18.3 % (11.8-14.6); RBC DIS.WIDTH-SD 63.3 % (39-53); RED BLOOD COUNT 2.77 M/uL (3.80-5.20); WHITE BLOOD COUNT 11.4 K/uL (4.1-10.2)
[2018-05-17 06:17] LABS: CHLORIDE 103 MEQ/L (99-109); CREATININE 0.4 MG/DL (0.6-1.3); GFR ESTIMATE (CALCULATED) > 59 mL/min/; GLUCOSE 129 mg/dL (70-99); MAGNESIUM 1.6 mg/dl (1.3-2.7); PHOSPHORUS 4.5 mg/dL (2.5-4.9); POTASSIUM 3.5 MEQ/L (3.7-5.4); SODIUM 136 MEQ/L (136-147); UREA NITROGEN (BUN) 15 mg/dL (9-23)
[2018-05-18] VITALS (19 sets, daily range): BP systolic 82–119; BP diastolic 45–69
[2018-05-18 05:21] LABS: HEMOGLOBIN 7.9 G/DL (11.9-15.5); MCH 29.2 PG (29.0-34.0); MCHC 30.4 G/DL (30.0-36.0); MCV 95.9 FL (83-99); PLATELET COUNT 239 K/uL (156-360); RBC DIS.WIDTH-CV 18.6 % (11.8-14.6); RED BLOOD COUNT 2.71 M/uL (3.80-5.20); WHITE BLOOD COUNT 8.5 K/uL (4.1-10.2)
[2018-05-18 06:15] LABS: CHLORIDE 104 MEQ/L (99-109); CREATININE 0.4 MG/DL (0.6-1.3); GFR ESTIMATE (CALCULATED) > 59 mL/min/; GLUCOSE 121 mg/dL (70-99); MAGNESIUM 1.6 mg/dl (1.3-2.7); PHOSPHORUS 4.3 mg/dL (2.5-4.9); POTASSIUM 3.7 MEQ/L (3.7-5.4); SODIUM 139 MEQ/L (136-147); UREA NITROGEN (BUN) 13 mg/dL (9-23); VANCOMYCIN, TROUGH 14.6 MCG/ML (10-20)
[2018-05-19] VITALS (22 sets, daily range): BP systolic 82–123; BP diastolic 46–87
[2018-05-19 07:11] LABS: HEMATOCRIT 26.5 % (36.0-46.0); HEMOGLOBIN 8.1 G/DL (11.9-15.5); MCH 29.5 PG (29.0-34.0); MCHC 30.6 G/DL (30.0-36.0); MCV 96.4 FL (83-99); PLATELET COUNT 287 K/uL (156-360); RBC DIS.WIDTH-CV 18.2 % (11.8-14.6); RBC DIS.WIDTH-SD 64.5 % (39-53); RED BLOOD COUNT 2.75 M/uL (3.80-5.20); WHITE BLOOD COUNT 9.3 K/uL (4.1-10.2)
[2018-05-19 07:34] LABS: CHLORIDE 100 MEQ/L (99-109); CREATININE 0.4 MG/DL (0.6-1.3); GFR ESTIMATE (CALCULATED) > 59 mL/min/; GLUCOSE 144 mg/dL (70-99); MAGNESIUM 1.5 mg/dl (1.3-2.7); PHOSPHORUS 4.1 mg/dL (2.5-4.9); POTASSIUM 3.7 MEQ/L (3.7-5.4); SODIUM 136 MEQ/L (136-147); UREA NITROGEN (BUN) 13 mg/dL (9-23)
[2018-05-20] VITALS (22 sets, daily range): BP systolic 78–112; BP diastolic 44–63
[2018-05-20 05:35] LABS: HEMATOCRIT 23.4 % (36.0-46.0); HEMOGLOBIN 7.2 G/DL (11.9-15.5); MCH 29.6 PG (29.0-34.0); MCHC 30.8 G/DL (30.0-36.0); MCV 96.3 FL (83-99); PLATELET COUNT 286 K/uL (156-360); RBC DIS.WIDTH-SD 62.7 % (39-53); RED BLOOD COUNT 2.43 M/uL (3.80-5.20); WHITE BLOOD COUNT 9.8 K/uL (4.1-10.2)
[2018-05-20 06:08] LABS: CHLORIDE 102 MEQ/L (99-109); CREATININE 0.4 MG/DL (0.6-1.3); GFR ESTIMATE (CALCULATED) > 59 mL/min/; MAGNESIUM 1.6 mg/dl (1.3-2.7); PHOSPHORUS 4.6 mg/dL (2.5-4.9); POTASSIUM 3.7 MEQ/L (3.7-5.4); SODIUM 136 MEQ/L (136-147); UREA NITROGEN (BUN) 13 mg/dL (9-23)
[2018-05-20 06:18] LABS: GLUCOSE 97 mg/dL (70-99)
[2018-05-20 09:32] LABS: 6-HOUR TOBRAMYCIN 1.2 UG/ML; VANCOMYCIN, TROUGH 14.1 MCG/ML (10-20)
[2018-05-21] VITALS (20 sets, daily range): BP systolic 85–109; BP diastolic 46–89
[2018-05-21 05:29] LABS: BASOPHIL (%) 0.2 % (0-1); EOSINOPHIL (%) 1.7 % (0-5); EOSINOPHIL COUNT 0.1 K/uL (0-0.3); HEMATOCRIT 24.2 % (36.0-46.0); HEMOGLOBIN 7.2 G/DL (11.9-15.5); IMMATURE GRANULOCYTE (%) 4.7 % (0.0-0.7); LYMPHOCYTE (%) 25.2 % (15-42); LYMPHOCYTE COUNT 2.1 K/uL (1.0-2.8); MCH 28.8 PG (29.0-34.0); MCHC 29.8 G/DL (30.0-36.0); MCV 96.8 FL (83-99); MONOCYTE (%) 8.6 % (3-12); MONOCYTE COUNT 0.7 K/uL (0-0.8); NEUTROPHIL (%) 59.6 % (45-76); NEUTROPHIL COUNT 4.9 K/uL (1.8-6.4); PLATELET COUNT 296 K/uL (156-360); RBC DIS.WIDTH-CV 17.6 % (11.8-14.6); RBC DIS.WIDTH-SD 61.8 % (39-53); WHITE BLOOD COUNT 8.2 K/uL (4.1-10.2)
[2018-05-21 05:56] LABS: CHLORIDE 103 MEQ/L (99-109); CREATININE 0.5 MG/DL (0.6-1.3); GFR ESTIMATE (CALCULATED) > 59 mL/min/; GLUCOSE 79 mg/dL (70-99); MAGNESIUM 1.6 mg/dl (1.3-2.7); POTASSIUM 3.6 MEQ/L (3.7-5.4); SODIUM 136 MEQ/L (136-147); UREA NITROGEN (BUN) 12 mg/dL (9-23)
[2018-05-22] VITALS (16 sets, daily range): BP systolic 84–118; BP diastolic 45–65
[2018-05-22 14:43] LABS: BASOPHIL (%) 0.3 % (0-1); EOSINOPHIL (%) 0.7 % (0-5); EOSINOPHIL COUNT 0.1 K/uL (0-0.3); HEMATOCRIT 24.7 % (36.0-46.0); HEMOGLOBIN 7.6 G/DL (11.9-15.5); IMMATURE GRANULOCYTE (%) 3.9 % (0.0-0.7); LYMPHOCYTE (%) 18.9 % (15-42); LYMPHOCYTE COUNT 1.9 K/uL (1.0-2.8); MCH 29.5 PG (29.0-34.0); MCHC 30.8 G/DL (30.0-36.0); MCV 95.7 FL (83-99); MONOCYTE (%) 6.9 % (3-12); MONOCYTE COUNT 0.7 K/uL (0-0.8); NEUTROPHIL (%) 69.3 % (45-76); NEUTROPHIL COUNT 7.1 K/uL (1.8-6.4); PLATELET COUNT 296 K/uL (156-360); RBC DIS.WIDTH-CV 17.4 % (11.8-14.6); RBC DIS.WIDTH-SD 61.4 % (39-53); RED BLOOD COUNT 2.58 M/uL (3.80-5.20); WHITE BLOOD COUNT 10.2 K/uL (4.1-10.2)
[2018-05-22 15:09] LABS: CHLORIDE 102 MEQ/L (99-109); CREATININE 0.5 MG/DL (0.6-1.3); GFR ESTIMATE (CALCULATED) > 59 mL/min/; GLUCOSE 84 mg/dL (70-99); POTASSIUM 3.7 MEQ/L (3.7-5.4); SODIUM 138 MEQ/L (136-147); UREA NITROGEN (BUN) 9 mg/dL (9-23)
[2018-05-23] VITALS (11 sets, daily range): BP systolic 89–107; BP diastolic 48–77
[2018-05-24] VITALS (9 sets, daily range): BP systolic 81–103; BP diastolic 43–58
[2018-05-25] VITALS (8 sets, daily range): BP systolic 84–137; BP diastolic 42–88
[2018-05-25 06:09] LABS: HEMATOCRIT 32.1 % (36.0-46.0); MCH 28.7 PG (29.0-34.0); MCHC 29.9 G/DL (30.0-36.0); MCV 96.1 FL (83-99); PLATELET COUNT 212 K/uL (156-360); RBC DIS.WIDTH-CV 17.3 % (11.8-14.6); RBC DIS.WIDTH-SD 61.4 % (39-53); WHITE BLOOD COUNT 11.4 K/uL (4.1-10.2)
[2018-05-25 06:10] LABS: HEMOGLOBIN 9.6 G/DL (11.9-15.5); RED BLOOD COUNT 3.34 M/uL (3.80-5.20)
[2018-05-25 06:41] LABS: CHLORIDE 100 MEQ/L (99-109); CREATININE 0.7 MG/DL (0.6-1.3); GFR ESTIMATE (CALCULATED) > 59 mL/min/; GLUCOSE 99 mg/dL (70-99); POTASSIUM 3.5 MEQ/L (3.7-5.4); SODIUM 134 MEQ/L (136-147); UREA NITROGEN (BUN) 11 mg/dL (9-23)
[2018-05-25 11:17] LABS: ANISOCYTOSIS 1+; MICROCYTOSIS 1+; PLAT.SUFFICIENCY ADEQUATE; POLYCHROMASIA 2+
[2018-05-25 11:23] LABS: BAND NEUTROPHILS 5.5 % (0-8.0); SEG.NEUTROPHILS 63.6 % (46.0-76.0)
[2018-05-25 11:24] LABS: ATYPICAL LYMPHOCYTE 0.9 %; LYMPHOCYTES 14.5 % (15.0-45.0); METAMYELOCYTES 0.9 %; MONOCYTES 11.8 % (0-9.0); MYELOCYTES 1.8 %
[2018-05-25 13:52] LABS: COMMENTS - BLOOD GASES A+C+; DEVICE VENT; FI02 40 %; MODE SPONT; SITE RIGHT RADIAL
[2018-05-25 13:53] LABS: PCO2 49 mm Hg (35-45); PEEP 7 CM/H20; PO2 68 mm Hg (80-100); PRES. SUPPORT 16 CM/H2O; TOTAL RESP RATE 22 resp/min; pH 7.31 (7.35-7.45)
[2018-05-25 13:54] LABS: BASE EXCESS -1.7 mEq/L (-3 to +3); BICARBONATE 24.7 mEq/L (22-26); METHEMOGLOBIN 1.2 % (0-1.5)
[2018-05-26] VITALS: BP 120/64
[2018-05-26 04:00] VITALS: BP 101/48
[2018-05-26 08:02] VITALS: BP 114/61
[2018-05-26 10:04] LABS: CHLORIDE 103 MEQ/L (99-109); SODIUM 134 MEQ/L (136-147)
[2018-05-26 10:15] LABS: CREATININE 0.7 MG/DL (0.6-1.3); GFR ESTIMATE (CALCULATED) > 59 mL/min/; GLUCOSE 102 mg/dL (70-99); UREA NITROGEN (BUN) 11 mg/dL (9-23)
[2018-05-26 10:23] LABS: MCH 29.6 PG (29.0-34.0); MCHC 31.3 G/DL (30.0-36.0); MCV 94.9 FL (83-99); PLATELET COUNT 234 K/uL (156-360); RBC DIS.WIDTH-CV 17.2 % (11.8-14.6); RBC DIS.WIDTH-SD 59.1 % (39-53); WHITE BLOOD COUNT 10.5 K/uL (4.1-10.2)
[2018-05-26 10:25] LABS: HEMOGLOBIN 7.5 G/DL (11.9-15.5); RED BLOOD COUNT 2.53 M/uL (3.80-5.20)
[2018-05-26 14:20] LABS: VANCOMYCIN, TROUGH 24.5 MCG/ML (10-20)
[2018-05-26 20:00] VITALS: BP 154/50
[2018-05-26 22:00] VITALS: BP 99/50
[2018-05-27] VITALS (8 sets, daily range): BP systolic 86–120; BP diastolic 41–86
[2018-05-27 06:08] LABS: CHLORIDE 101 MEQ/L (99-109); CREATININE 0.8 MG/DL (0.6-1.3); GFR ESTIMATE (CALCULATED) > 59 mL/min/; GLUCOSE 88 mg/dL (70-99); MAGNESIUM 1.7 mg/dl (1.3-2.7); POTASSIUM 3.9 MEQ/L (3.7-5.4); SODIUM 132 MEQ/L (136-147); UREA NITROGEN (BUN) 11 mg/dL (9-23)
[2018-05-27 07:49] LABS: HEMOGLOBIN 8.4 G/DL (11.9-15.5); MCH 29.8 PG (29.0-34.0); MCHC 32.3 G/DL (30.0-36.0); MCV 92.2 FL (83-99); RBC DIS.WIDTH-CV 17.2 % (11.8-14.6); RBC DIS.WIDTH-SD 58.1 % (39-53); RED BLOOD COUNT 2.82 M/uL (3.80-5.20); WHITE BLOOD COUNT 11.4 K/uL (4.1-10.2)
[2018-05-27 08:07] LABS: PLATELET CLUMPS PRESENT - PLATELET COUNT APPEARS DECREASED; PLATELET COUNT UNABLE TO REPORT K/uL (156-360)
[2018-05-28] VITALS (15 sets, daily range): BP systolic 68–139; BP diastolic 42–83
[2018-05-28 05:34] LABS: HEMATOCRIT 23.7 % (36.0-46.0); HEMOGLOBIN 7.2 G/DL (11.9-15.5); MCH 28.8 PG (29.0-34.0); MCHC 30.4 G/DL (30.0-36.0); MCV 94.8 FL (83-99); PLATELET COUNT 230 K/uL (156-360); RBC DIS.WIDTH-CV 17.4 % (11.8-14.6); RBC DIS.WIDTH-SD 59.9 % (39-53); WHITE BLOOD COUNT 12.1 K/uL (4.1-10.2)
[2018-05-28 06:03] LABS: CHLORIDE 103 MEQ/L (99-109); CREATININE 0.8 MG/DL (0.6-1.3); GFR ESTIMATE (CALCULATED) > 59 mL/min/; GLUCOSE 97 mg/dL (70-99); MAGNESIUM 1.6 mg/dl (1.3-2.7); POTASSIUM 3.7 MEQ/L (3.7-5.4); SODIUM 136 MEQ/L (136-147); UREA NITROGEN (BUN) 13 mg/dL (9-23)
[2018-05-28] MEDS ORDERED: Tums,OsCal PO (12:01)
[2018-05-28] MEDS ORDERED: OXYCODONE HCL5 MG PO (12:01)
[2018-05-28] MEDS ORDERED: POLYETHYLENE GL17 GM PO (12:01)
[2018-05-28] MEDS ORDERED: VITAMIN D31000 UNI2 PO (12:01)
[2018-05-28] MEDS ORDERED: Zeasorb Antifungal T TP (12:01)
[2018-05-28] MEDS ORDERED: SENNA LAX8.6 MG PO (12:01)
[2018-05-28] MEDS ORDERED: SUCRALFATE1 GM/10 ML PO (12:01)
[2018-05-28] MEDS ORDERED: QUETIAPINE FUMA25 MG PO (12:19)
[2018-05-28] MEDS ORDERED: Pepcid IV (12:19)
[2018-05-29] VITALS (8 sets, daily range): BP systolic 98–123; BP diastolic 51–69
[2018-05-29 08:40] LABS: HEMATOCRIT 28.1 % (36.0-46.0); HEMOGLOBIN 9.1 G/DL (11.9-15.5); MCV 92.4 FL (83-99)
== END 2018-05-29 16:58 | disposition designated cancer center or children's hospital (05) | DRG 252 ==
LOC: EME → EDBD 02:48 → EME 02:48 → 4WEST 08:08 → EDOF 08:08 → ENRESERV 08:12 → 4WEST 09:55 → ENRESERV 05-21 13:02 → CANRESERV 05-21 13:02 → 4WEST 05-29 16:58
PROVIDERS: Emergency Medicine; Internal Medicine; Internal Medicine Critical Care Medicine; Specialist
PROC: 30233N1 Transfusion of Nonautologous Red Blood Cells into Peripheral Vein, Percutaneous Approach (ICD-10-PCS; principal; 2018-05-13)
PROC: 5A1955Z Respiratory Ventilation, Greater than 96 Consecutive Hours (ICD-10-PCS; 2018-05-13)
PROC: 05PY03Z Removal of Infusion Device from Upper Vein, Open Approach (ICD-10-PCS; 2018-05-16)
DX: T80.211A Bloodstream infection due to central venous catheter, initial encounter (principal); R78.81 Bacteremia; T81.31XA Disruption of external operation (surgical) wound, not elsewhere classified, initial encounter; Y83.8 Other surgical procedures as the cause of abnormal reaction of the patient, or of later complication, without mention of misadventure at the time of the procedure; K94.23 Gastrostomy malfunction; J95.851 Ventilator associated pneumonia; J44.0 Chronic obstructive pulmonary disease with (acute) lower respiratory infection; J15.212 Pneumonia due to Methicillin resistant Staphylococcus aureus; J96.20 Acute and chronic respiratory failure, unspecified whether with hypoxia or hypercapnia; T83.511A Infection and inflammatory reaction due to indwelling urethral catheter, initial encounter; Y84.6 Urinary catheterization as the cause of abnormal reaction of the patient, or of later complication, without mention of misadventure at the time of the procedure; N39.0 Urinary tract infection, site not specified; B96.20 Unspecified Escherichia coli [E. coli] as the cause of diseases classified elsewhere; I50.9 Heart failure, unspecified; E11.9 Type 2 diabetes mellitus without complications; E66.01 Morbid (severe) obesity due to excess calories; D64.9 Anemia, unspecified; L89.893 Pressure ulcer of other site, stage 3; S80.821A Blister (nonthermal), right lower leg, initial encounter; L89.320 Pressure ulcer of left buttock, unstageable; I89.0 Lymphedema, not elsewhere classified; G47.33 Obstructive sleep apnea (adult) (pediatric); L03.90 Cellulitis, unspecified; Z93.0 Tracheostomy status; Z99.11 Dependence on respirator [ventilator] status; Z86.14 Personal history of Methicillin resistant Staphylococcus aureus infection; Z79.891 Long term (current) use of opiate analgesic; Z87.891 Personal history of nicotine dependence; Z68.45 Body mass index [BMI] 70 or greater, adult; Z74.01 Bed confinement status
CPT/HCPCS: 36600; 71045; 74150; 74176; 80048; 80053; 80200; 80202; 81003; 82040; 82803; 82948; 83605; 83690; 83735; 84100; 84484; 85014; 85018; 85025; 85027; 85610; 85730; 86850; 86900; 86901; 86920; 87040; 87070; 87077; 87081; 87086; 87147; 87186; 87205; 87493; 87641; 87801; 92507 GN; 92526 GN; 93005; 93306; 94002; 94003; 94760; 99281; 99285; A6212; C1753; J1170; J1644; J1815; J2543; J3260; J3370; J3475; J3480; J7050; P9016; S0028

== ENCOUNTER 2018-06-19 14:47 | Inpatient (IN) | payer OTHER ==
[2018-06-19] VITALS (8 sets, daily range): BP systolic 77–110; BP diastolic 36–53
[~2018-06-19] VITALS: Ht 157.5 cm; Wt 163.0 kg
[~2018-06-19 14:47] MED LIST changes: +LASIX40 MG GT; +NOVOLOG MI100 UNIT/2 SC; +Pepcid IV; +QUETIAPINE FUMA25 MG PO; +ROXICODONE5 MG GT; +SENNA LAX8.6 MG PO; +SUCRALFATE1 GM/10 ML PO; +Tums,OsCal PO; +VITAMIN D31000 UNI2 PO; +ZOFRAN4 MG/2 ML IV; +Zeasorb Antifungal T TP
[2018-06-19 16:16] LABS: ALBUMIN 1.8 g/dL (3.2-4.8); CHLORIDE 96 mEq/L (99-109); POTASSIUM 4.1 mEq/L (3.7-5.4); SODIUM 134 mEq/L (136-147)
[2018-06-19 16:18] LABS: BASOPHIL (%) 0.1 % (0-1); EOSINOPHIL (%) 0.1 % (0-5); GLUCOSE 119 mg/dL (70-99); HEMATOCRIT 22.2 % (36.0-46.0); LYMPHOCYTE (%) 6.4 % (15-42); LYMPHOCYTE COUNT 0.9 K/uL (1.0-2.8); MCH 28.4 PG (29.0-34.0); MCHC 30.2 G/DL (30.0-36.0); MCV 94.1 FL (83-99); MONOCYTE (%) 2.2 % (3-12); MONOCYTE COUNT 0.3 K/uL (0-0.8); NEUTROPHIL (%) 88.2 % (45-76); NEUTROPHIL COUNT 12.8 K/uL (1.8-6.4); RBC DIS.WIDTH-CV 17.1 % (11.8-14.6); RBC DIS.WIDTH-SD 58.1 % (39-53); RED BLOOD COUNT 2.36 M/uL (3.80-5.20); WHITE BLOOD COUNT 14.5 K/uL (4.1-10.2)
[2018-06-19 16:19] LABS: HEMOGLOBIN 6.7 G/DL (11.9-15.5); PLATELET COUNT 347 K/uL (156-360); TOTAL PROTEIN 6.2 g/dL (6.4-8.3)
[2018-06-19 16:20] LABS: TOTAL BILIRUBIN 0.3 mg/dL (0.0-1.0)
[2018-06-19 16:22] LABS: ALKALINE PHOSPHATASE 523 IU/L (3-129); CREATININE 1.6 mg/dL (0.6-1.3); GFR ESTIMATE (CALCULATED) 36 mL/min/
[2018-06-19 16:23] LABS: UREA NITROGEN (BUN) 70 mg/dL (9-23)
[2018-06-19 16:24] LABS: AST (GOT) 9 IU/L (2-34); DIRECT BILIRUBIN 0.1 mg/dL (0.0-0.3)
[2018-06-19 16:25] LABS: ALT (GPT) 7 IU/L (3-49)
[2018-06-19 16:30] LABS: TROP-I INTERPRETATION NEGATIVE; TROPONIN-I < 0.01 ng/mL (0.0-0.30)
[2018-06-19] MEDS ORDERED: BUMETANIDE1 MG PO (18:19)
[2018-06-19] MEDS ORDERED: DECARA50000 UNIT PO (18:21)
[2018-06-19] MEDS ORDERED: SUPER CALCIUM600 MG PO (18:21)
[2018-06-19] MEDS ORDERED: DIFLUCAN200 MG PO (18:22)
[2018-06-19] MEDS ORDERED: LASIX100 MG/10 ML IV (18:24)
[2018-06-19] MEDS ORDERED: HEPARIN SO5000 UNIT4 SC (18:26)
[2018-06-19] MEDS ORDERED: MAGNESIUM OXID400 MG PO (18:27)
[2018-06-19] MEDS ORDERED: NOVOLOG 10100 UNITS/ SC (18:29)
[2018-06-19] MEDS ORDERED: OMEPRAZOLE40 M1 PO (18:30)
[2018-06-19] MEDS ORDERED: ZOSYN 3.3753.375 GM IV (18:31)
[2018-06-19] MEDS ORDERED: SEROQUEL12.5 MG PO (18:33)
[2018-06-19] MEDS ORDERED: SENNA8.6 MG PO (18:34)
[2018-06-19] MEDS ORDERED: SPIRONOLACTONE25 MG PO (18:36)
[2018-06-19] MEDS ORDERED: ULTRA STRENGT PO (18:37)
[2018-06-19] MEDS ORDERED: PROSOURCE LIQUI30 ML PO (18:40)
[2018-06-19] MEDS ORDERED: GLUCERNA 1 CAL237 ML PO (18:40)
[2018-06-19] MEDS ORDERED: GAVILAX17 GM PO (18:42)
[2018-06-19] MEDS ORDERED: OXAYDO5 MG PO (18:43)
[2018-06-20] VITALS (19 sets, daily range): BP systolic 87–122; BP diastolic 35–73
[2018-06-20 01:49] LABS: HEMATOCRIT 25.2 % (36.0-46.0)
[2018-06-20 05:04] LABS: CHLORIDE 98 mEq/L (99-109); POTASSIUM 4.2 mEq/L (3.7-5.4); SODIUM 133 mEq/L (136-147)
[2018-06-20 05:05] LABS: MAGNESIUM 1.5 mg/dL (1.3-2.7)
[2018-06-20 05:06] LABS: GLUCOSE 90 mg/dL (70-99)
[2018-06-20 05:10] LABS: CREATININE 1.6 mg/dL (0.6-1.3); GFR ESTIMATE (CALCULATED) 36 mL/min/
[2018-06-20 05:13] LABS: UREA NITROGEN (BUN) 103 mg/dL (9-23)
[2018-06-20 06:20] LABS: PHOSPHORUS 4.4 mg/dL (2.5-4.9); VANCOMYCIN, TROUGH 23.9 MCG/ML (10-20)
[2018-06-20 07:00] LABS: HEMATOCRIT 22.9 % (36.0-46.0); HEMOGLOBIN 7.2 G/DL (11.9-15.5); MCH 28.9 PG (29.0-34.0); MCHC 31.4 G/DL (30.0-36.0); PLATELET COUNT 305 K/uL (156-360); RBC DIS.WIDTH-CV 16.5 % (11.8-14.6); RED BLOOD COUNT 2.49 M/uL (3.80-5.20); WHITE BLOOD COUNT 10.5 K/uL (4.1-10.2)
[2018-06-20 07:05] LABS: PREALBUMIN 5.9 mg/dL (10-40); TRIGLYCERIDES 112 MG/DL (Normal: <150)
[2018-06-20 15:08] LABS: BASOPHIL (%) 0.3 % (0-1); EOSINOPHIL (%) 0.4 % (0-5); HEMATOCRIT 27.4 % (36.0-46.0); HEMOGLOBIN 8.6 G/DL (11.9-15.5); LYMPHOCYTE (%) 8.1 % (15-42); LYMPHOCYTE COUNT 0.9 K/uL (1.0-2.8); MCH 29.4 PG (29.0-34.0); MCHC 31.4 G/DL (30.0-36.0); MCV 93.5 FL (83-99); MONOCYTE (%) 3.1 % (3-12); MONOCYTE COUNT 0.4 K/uL (0-0.8); NEUTROPHIL (%) 83.1 % (45-76); NEUTROPHIL COUNT 9.4 K/uL (1.8-6.4); PLATELET COUNT 339 K/uL (156-360); RBC DIS.WIDTH-CV 16.5 % (11.8-14.6); RBC DIS.WIDTH-SD 57.2 % (39-53); RED BLOOD COUNT 2.93 M/uL (3.80-5.20); WHITE BLOOD COUNT 11.3 K/uL (4.1-10.2)
[2018-06-21] VITALS (9 sets, daily range): BP systolic 84–116; BP diastolic 40–64
[2018-06-21 05:35] LABS: BASOPHIL (%) 0.3 % (0-1); EOSINOPHIL (%) 1.4 % (0-5); EOSINOPHIL COUNT 0.1 K/uL (0-0.3); HEMATOCRIT 24.5 % (36.0-46.0); HEMOGLOBIN 7.7 G/DL (11.9-15.5); IMMATURE GRANULOCYTE (%) 4.9 % (0.0-0.7); LYMPHOCYTE (%) 11.3 % (15-42); LYMPHOCYTE COUNT 1.1 K/uL (1.0-2.8); MCH 28.7 PG (29.0-34.0); MCHC 31.4 G/DL (30.0-36.0); MCV 91.4 FL (83-99); MONOCYTE (%) 4.3 % (3-12); MONOCYTE COUNT 0.4 K/uL (0-0.8); NEUTROPHIL (%) 77.8 % (45-76); NEUTROPHIL COUNT 7.8 K/uL (1.8-6.4); PLATELET COUNT 325 K/uL (156-360); RBC DIS.WIDTH-CV 16.5 % (11.8-14.6); RED BLOOD COUNT 2.68 M/uL (3.80-5.20); WHITE BLOOD COUNT 10.1 K/uL (4.1-10.2)
[2018-06-21 06:16] LABS: CHLORIDE 98 MEQ/L (99-109); CREATININE 1.6 MG/DL (0.6-1.3); GFR ESTIMATE (CALCULATED) 36 mL/min/; GLUCOSE 103 mg/dL (70-99); POTASSIUM 3.7 MEQ/L (3.7-5.4); SODIUM 133 MEQ/L (136-147); UREA NITROGEN (BUN) 74 mg/dL (9-23)
[2018-06-21 10:27] LABS: INTER. NORMALIZED RATIO 1.2
[2018-06-22] VITALS (7 sets, daily range): BP systolic 90–116; BP diastolic 39–59
[2018-06-22 05:27] LABS: BASOPHIL (%) 0.3 % (0-1); EOSINOPHIL (%) 1.7 % (0-5); EOSINOPHIL COUNT 0.2 K/uL (0-0.3); HEMATOCRIT 25.2 % (36.0-46.0); HEMOGLOBIN 7.8 G/DL (11.9-15.5); IMMATURE GRANULOCYTE (%) 4.8 % (0.0-0.7); LYMPHOCYTE (%) 12.4 % (15-42); LYMPHOCYTE COUNT 1.2 K/uL (1.0-2.8); MCH 28.6 PG (29.0-34.0); MCV 92.3 FL (83-99); MONOCYTE (%) 4.7 % (3-12); MONOCYTE COUNT 0.4 K/uL (0-0.8); NEUTROPHIL (%) 76.1 % (45-76); NEUTROPHIL COUNT 7.1 K/uL (1.8-6.4); PLATELET COUNT 330 K/uL (156-360); RBC DIS.WIDTH-CV 16.6 % (11.8-14.6); RBC DIS.WIDTH-SD 55.8 % (39-53); RED BLOOD COUNT 2.73 M/uL (3.80-5.20); WHITE BLOOD COUNT 9.4 K/uL (4.1-10.2)
[2018-06-22 06:00] LABS: CHLORIDE 99 MEQ/L (99-109); CREATININE 1.6 MG/DL (0.6-1.3); GFR ESTIMATE (CALCULATED) 36 mL/min/; GLUCOSE 95 mg/dL (70-99); POTASSIUM 3.8 MEQ/L (3.7-5.4); SODIUM 134 MEQ/L (136-147); UREA NITROGEN (BUN) 72 mg/dL (9-23)
[2018-06-22] MEDS ORDERED: DUONEB 2.5-0.5 M3 ML AEROSOL (11:34)
[2018-06-22 12:58] LABS: STOOL OCCULT BLD 1ST SPECIMEN NEGATIVE
== END 2018-06-22 18:10 | disposition designated cancer center or children's hospital (05) | DRG 862 ==
LOC: EME → EDBD 14:47 → EDOF 06-20 00:15 → 4WEST 06-20 00:15 → ENRESERV 06-20 00:17 → 4WEST 06-20 01:06
PROVIDERS: Emergency Medicine; Hospitalist; Internal Medicine; Radiology Diagnostic Radiology
DX: T81.4XXA Infection following a procedure, initial encounter (principal); A41.9 Sepsis, unspecified organism; K65.1 Peritoneal abscess; N17.9 Acute kidney failure, unspecified; T81.31XA Disruption of external operation (surgical) wound, not elsewhere classified, initial encounter; L76.34 Postprocedural seroma of skin and subcutaneous tissue following other procedure; Y83.8 Other surgical procedures as the cause of abnormal reaction of the patient, or of later complication, without mention of misadventure at the time of the procedure; J44.9 Chronic obstructive pulmonary disease, unspecified; J96.10 Chronic respiratory failure, unspecified whether with hypoxia or hypercapnia; Z99.11 Dependence on respirator [ventilator] status; Z93.0 Tracheostomy status; Z99.81 Dependence on supplemental oxygen; Z43.1 Encounter for attention to gastrostomy; E11.622 Type 2 diabetes mellitus with other skin ulcer; L89.322 Pressure ulcer of left buttock, stage 2; L89.153 Pressure ulcer of sacral region, stage 3; R18.8 Other ascites; E46 Unspecified protein-calorie malnutrition; D50.0 Iron deficiency anemia secondary to blood loss (chronic); E11.22 Type 2 diabetes mellitus with diabetic chronic kidney disease; N18.3 Chronic kidney disease, stage 3 (moderate); I95.9 Hypotension, unspecified; I89.0 Lymphedema, not elsewhere classified; G47.33 Obstructive sleep apnea (adult) (pediatric); I50.32 Chronic diastolic (congestive) heart failure; I87.2 Venous insufficiency (chronic) (peripheral); E66.01 Morbid (severe) obesity due to excess calories; Z68.44 Body mass index [BMI] 60.0-69.9, adult; J98.11 Atelectasis; E78.1 Pure hyperglyceridemia; L98.9 Disorder of the skin and subcutaneous tissue, unspecified; K05.10 Chronic gingivitis, plaque induced; K02.9 Dental caries, unspecified; Z59.0 Homelessness; Y95 Nosocomial condition; Z87.891 Personal history of nicotine dependence; Z87.440 Personal history of urinary (tract) infections; Z86.14 Personal history of Methicillin resistant Staphylococcus aureus infection
CPT/HCPCS: 49405; 71045; 74177; 80048; 80076; 80202; 82272; 82948; 83605; 83735; 84100; 84134; 84145 90; 84478; 84484; 85014; 85018; 85025; 85027; 85610; 85730; 86850; 86900; 86901; 86920; 87040; 87070; 87075; 87076; 87081; 87106; 87205; 87641; 93005; 94002; 94003; 99281; 99285; A6212; C9113; J0692; J2543; J3010; J3370; J7030; J7050; P9016; P9047